=== PATIENT | male | born 1960 | race Caucasian/White ===

== ENCOUNTER → 2018-05-31 | Outpatient (REF) | payer BC ==
[~2018-05-31] MED LIST: ACET-654 PO; CHERSYP3 PO; CLAR500T3 PO; INDO50CA PO; LEVO500T PO
[2018-05-31 12:43] LABS: AMYLASE 33 U/L (25-115); LIPASE 100 U/L (73-393)
== END ==
LOC: M LAB REF 11:38
PROVIDERS: ATTEND Nurse Practitioner Adult Health
DX: R10.9 Unspecified abdominal pain (principal); R19.7 Diarrhea, unspecified

== ENCOUNTER → 2018-06-03 | Outpatient (CLI) | payer BC ==
--- NOTE | 2018-06-03 11:16 | REP ---
Chest two views HISTORY: Asbestos exposure Comparison: 05/22/2014 A calcified granuloma is present in the right lower lobe. Linear densities are present in the lower lobes consistent with scarring. The heart is normal in size. The pulmonary vasculature is normal in appearance. The bony structure is intact. IMPRESSION: No acute disease. Electronically Signed by Afshin Ferris MD 06/03/2018 11:09 A
== END ==
LOC: M WUC 10:41
PROVIDERS: ATTEND Nurse Practitioner Adult Health
DX: Z77.090 Contact with and (suspected) exposure to asbestos (principal)

== ENCOUNTER → 2018-10-30 | Outpatient (CLI) | payer BC ==
[~2018-10-30] MED LIST changes: +CLAR-1 PO; -CLAR500T3 PO; +ISOVUE-370 76% 100ML VIAL (Q9967) As Ordered ONE
--- NOTE | 2018-10-30 11:25 | REP ---
REASON FOR EXAM: COPD. COMPARISON: 04/02/2013. CONTRAST: 100 mL Isovue 370. There are multiple borderline mediastinal and right hilar lymph nodes. Some are partially calcified, essentially unchanged to slightly increased in size and degree of calcification when compared to the prior exam. There is no pleural or pericardial effusion. There is no significant change in the appearance of the imaged osseous structures or imaged upper abdomen. Evaluation of the lung marie show changes from COPD with parenchymal bullae and pleural blebs scattered bilaterally with biapical predominance essentially stable. Right basilar curvilinear densities are noted status quo consistent with chronic fibrotic changes. This is seen in conjunction with more mild scattered curvilinear densities also consistent with chronic change and stable. In the right upper lobe, there is a new irregular, somewhat spiculated 1.3 x 0.6 x 0.6 cm sized nodule. There are no additional new abnormal nodules, masses, or opacities. IMPRESSION: 1. New right lung nodule as described above. According to the revised Fleischner Society criteria, this represents a category 4A lesion for which 3-month followup CT scan is recommended with consideration made for PET/CT at this time. 2. Chronic lung field changes as described above. 3. Chronic mediastinal and hilar granulomatous changes. Electronically Signed by Davie Candelario DO 10/30/2018 12:47 P
== END ==
LOC: M RAD 09:06
PROVIDERS: ATTEND Internal Medicine Pulmonary Disease
DX: J44.9 Chronic obstructive pulmonary disease, unspecified (principal); R91.1 Solitary pulmonary nodule
CPT/HCPCS: 71260; Q9967

== ENCOUNTER → 2018-11-29 | Outpatient (CLI) | payer BC ==
[~2018-11-29] MED LIST changes: -ISOVUE-370 76% 100ML VIAL (Q9967) As Ordered ONE
--- NOTE | 2018-11-29 11:45 | REP ---
PET/CT: HISTORY: Diagnosing lung carcinoma. Solitary pulmonary nodule, 1.3 cm in diameter, right upper lobe. COMPARISONS: Chest CT exam from October 30, 2018. TECHNIQUE: 45 minutes following the intravenous injection of a 8.92 mCi dose of F-18 FDG, three-dimensional PET scintigraphy is acquired from the skull base to the proximal thighs. Triplanar noncontrast CT scanning is acquired through the same anatomic range for attenuation correction, and image registration with scan parameters optimized to minimize radiation exposure to the patient. PET scintigraphy and CT datasets were fused and displayed on a workstation with multiplanar and projection display capability. PET/CT FINDINGS: The recently identified right upper lobe nodule does not show visible PET activity. Maximum SUV is 0.72. There are subsegmental atelectatic changes in the dependent portion of the lower lobes bilaterally on today's CT study. No abnormal hypermetabolic suspicious focus is seen in the thorax. Head and neck soft tissues are unremarkable. In the abdomen and pelvis, there is no abnormal hypermetabolic uptake. IMPRESSION: Negative PET scintigraphy. This does not completely exclude malignancy in the right upper lobe pulmonary nodule. Followup is recommended. Electronically Signed by Dnaiel Aguirre MD 11/29/2018 03:24 P
== END ==
LOC: M PLARAD 07:29
PROVIDERS: ATTEND Internal Medicine Pulmonary Disease
DX: R91.1 Solitary pulmonary nodule (principal)
CPT/HCPCS: 78815; A9552

== ENCOUNTER → 2019-04-02 | Outpatient (CLI) | payer MEDICAID ==
--- NOTE | 2019-04-02 13:51 | REP ---
LEFT HAND SERIES: FOUR VIEWS. HISTORY: Left thumb pain. FINDINGS: Four views of the left hand demonstrate fragmented osteoarthritic spurring at the IP joint of the thumb. There are also mild to moderate osteoarthritic changes at the MCP joint and CORRECTION joint of the thumb and to a lesser extent, there is spurring at the DIP joints of all of the fingers. No erosive changes seen. IMPRESSION: Osteoarthritic changes, as noted above. No acute bony abnormality. Fragmented spurring is seen at the IP joint of the thumb. Electronically Signed by Daniel Aguirre MD 04/02/2019 02:51 P
== END ==
LOC: M RAD 12:00
PROVIDERS: ATTEND Physician Assistant Medical
DX: S63.602A Unspecified sprain of left thumb, initial encounter (principal); X58.XXXA Exposure to other specified factors, initial encounter; Y92.89 Other specified places as the place of occurrence of the external cause; M79.645 Pain in left finger(s)

== ENCOUNTER → 2019-05-15 | Outpatient (REF) | payer MEDICAID ==
[2019-05-15 13:54] LABS: INFLUENZA A AMPLIFICATION NEGATIVE (NEGATIVE); INFLUENZA B AMPLIFICATION NEGATIVE (NEGATIVE)
== END ==
LOC: M LAB REF 12:20
PROVIDERS: ATTEND Registered Nurse
DX: J06.9 Acute upper respiratory infection, unspecified (principal)

== ENCOUNTER → 2019-05-31 | Outpatient (CLI) | payer MEDICAID ==
[~2019-05-31] MED LIST changes: +ISOVUE-370 76% 100ML VIAL (Q9967) As Ordered ONE
--- NOTE | 2019-05-31 10:08 | REP ---
CT of the chest with IV contrast for follow up of lung nodules: Comparisons are 04/02/2013, and 10/30/2018. There is a new 6 mm nodule with spiculated margins in the left upper lobe on image 24, not present on the prior studies. Image 22, right upper lobe, 13 by 6 mm lung nodule, unchanged from 03/09/2019, not present on 04/02/2039. Image 35, left upper lobe, 5 mm nodule, unchanged from a 03/09/2019, not present on 04/02/2013. Image 40, left upper lobe, 4 mm nodule, unchanged from 10/30/2018, not present 04/02/2013. Image 46, right upper lobe posteriorly, calcified granuloma, unchanged from both prior studies. There are bulla throughout the lung marie bilaterally, most predominant in the upper lobes, unchanged from the prior studies. There is discoid atelectasis versus parenchymal scarring in the right middle lobe and in the lingula, unchanged from 10/30/2018 but not present on 04/02/2013. There is a parenchymal scar in the right lower lobe, unchanged from both prior studies. There are borderline enlarged hilar nodes measuring up to 7 mm on the right and 8 ml on the left. This is unchanged. There are borderline. There are borderline enlarged mediastinal nodes measuring up to 7 mm in the pretracheal area. This is unchanged. There are calcified granulomas in several paratracheal mediastinal nodes. This is unchanged. There are no acute infiltrates or pleural effusions. Upper abdomen: The visualized hepatic parenchyma is unremarkable except for a few tiny hypodensities, unchanged, likely cysts. The visualized areas of the gallbladder, pancreas and spleen are unremarkable. There is no adrenal mass. Impression: Multiple lung nodules as described. There is a new left upper lobe lung nodule. The other nodules are unchanged. Borderline hilar and mediastinal lymph node enlargement, not significantly changed. Bulla throughout the lung marie bilaterally, more predominant in the upper lobes, unchanged. Focal zones of parenchymal scarring. Stable low wall hypodensities in the liver, likely cysts. Electronically Signed by Judah Marie MD 05/31/2019 09:59 A
== END ==
LOC: M RAD 07:43
PROVIDERS: ATTEND Internal Medicine Pulmonary Disease
DX: J44.9 Chronic obstructive pulmonary disease, unspecified (principal); R91.8 Other nonspecific abnormal finding of lung field; K76.89 Other specified diseases of liver
CPT/HCPCS: 71260; Q9967

== ENCOUNTER → 2019-07-23 | Outpatient (CLI) | payer OTHER ==
[~2019-07-23] MED LIST changes: -ISOVUE-370 76% 100ML VIAL (Q9967) As Ordered ONE
[2019-07-23 15:16] LABS: HEMATOCRIT 43.6 % (42.0-52.0); HEMOGLOBIN 14.5 g/dl (13.5-17.5); MEAN CORPUSCULAR HEMOGLOBIN 29.7 pg (27.0-33.0); MEAN CORPUSCULAR HGB CONC 33.3 g/dl (32.0-36.5); MEAN CORPUSCULAR VOLUME 89.3 fl (80.0-96.0); PLATELET COUNT, AUTOMATED 338 10^3/uL (150-450); RED BLOOD COUNT 4.88 10^6/uL (4.30-6.10); WHITE BLOOD COUNT 8.8 10^3/uL (4.0-10.0)
[2019-07-23 15:36] LABS: ALBUMIN 3.7 GM/DL (3.2-5.2); ALT/SGPT 31 U/L (12-78); AMYLASE 38 U/L (25-115); BILIRUBIN,TOTAL 0.3 MG/DL (0.2-1.0); BLOOD UREA NITROGEN 17 MG/DL (7-18); CALCIUM LEVEL 8.6 MG/DL (8.8-10.2); CARBON DIOXIDE LEVEL 27 MEQ/L (21-32); CHLORIDE LEVEL 106 MEQ/L (98-107); CREATININE FOR GFR 1.14 MG/DL (0.70-1.30); GLOMERULAR FILTRATION RATE > 60.0 (>49); GLUCOSE, FASTING 137 MG/DL (70-100); LIPASE 100 U/L (73-393); POTASSIUM SERUM 4.1 MEQ/L (3.5-5.1); SODIUM LEVEL 141 MEQ/L (136-145); TOTAL PROTEIN 6.8 GM/DL (6.4-8.2)
== END ==
LOC: M LAB 14:24
PROVIDERS: ATTEND Physician Assistant Medical
DX: R10.10 Upper abdominal pain, unspecified (principal)

== ENCOUNTER → 2019-09-20 | Outpatient (CLI) | payer OTHER ==
[~2019-09-20] MED LIST changes: +BREO1INH3 IH; +FAMO20TA PO; +INCR1INH INH; +LISI20TA19 PO; +METF-838 PO; +METF10004; +PANT40TA3 PO; +PROAAER10 INH; +SUCR1SS
== END ==
LOC: M LABSMTC 13:10
PROVIDERS: ATTEND Anesthesiology
DX: Z03.818 Encounter for observation for suspected exposure to other biological agents ruled out (principal); Z11.59 Encounter for screening for other viral diseases
CPT/HCPCS: C9803; U0003

== ENCOUNTER 2019-09-23 23:26 | Emergency (ER) | payer OTHER ==
[~2019-09-23] VITALS: Ht 177.8 cm; Wt 80.9 kg
[~2019-09-23 23:26] MED LIST changes: -METF10004
[2019-09-24] MEDS ORDERED: METF10004 (00:06)
[2019-09-24] MEDS ORDERED: DICYCLOMINE INJ 20MG/2ML (J0500) IM ONE (00:45)
[2019-09-24] MEDS ORDERED: NS 1,000 ML IV ONE (00:45)
[2019-09-24] MEDS ORDERED: ONDANSETRON 4MG/2ML VIAL IV ONE (01:45)
[2019-09-24 02:20] VITALS: BP 112/70
== END 2019-09-24 02:21 | disposition home or self-care (01) ==
LOC: M ED 23:26
DX: R10.9 Unspecified abdominal pain (principal); I10 Essential (primary) hypertension; K21.9 Gastro-esophageal reflux disease without esophagitis; J44.9 Chronic obstructive pulmonary disease, unspecified; R73.03 Prediabetes; Z79.84 Long term (current) use of oral hypoglycemic drugs; Z79.899 Other long term (current) drug therapy
CPT/HCPCS: 96361; 96372; 96374; 99284; J0500; J2405

== ENCOUNTER 2019-09-24 11:05 | Day surgery (SDC) | payer OTHER ==
[~2019-09-24] VITALS: Ht 177.8 cm; Wt 80.3 kg
[~2019-09-24 11:05] MED LIST changes: -BREO1INH3 IH; +BREO1INH3 INH; -LISI20TA19 PO; +LISI20TA35 PO; +METF10004; +NS 1,000 ML IV ONE; +PANT40TA29 PO; -PANT40TA3 PO
[2019-09-24] MEDS ORDERED: fentaNYL 100 MCG/2 ML INJECTION (J3010) As Ordered ONE (13:10)
[2019-09-24] MEDS ORDERED: LIDOCAINE 2% 100MG/5ML SDV (FOR ANES.) As Ordered ONE (13:46)
[2019-09-24] MEDS ORDERED: propofoL 200 MG/20 ML VIAL As Ordered ONE (13:46)
--- NOTE | 2019-09-24 13:51 | ROOR ---
Patient Name: Isrrael Osullivan Procedure Date: 09/24/2019 1:06 PM Date of : 1960 Age: 59 Room: [facility] Gender: Male Note Status: Finalized Procedure: Upper GI endoscopy Indications: Epigastric abdominal pain, Suspected gastro-esophageal reflux disease Providers: Aiden Lux MD Referring MD: SONY GALINDO JR, MD Requesting Provider: Medicines: Monitored Anesthesia Care Complications: No immediate complications. Procedure: Pre-Anesthesia Assessment: - Prior to the procedure, a History and Physical was performed, and patient medications and allergies were reviewed. The patient is competent. The risks and benefits of the procedure and the sedation options and risks were discussed with the patient. All questions were answered and informed consent was obtained. Patient identification and proposed procedure were verified by the physician, the nurse and the anesthesiologist in the procedure room. Mental Status Examination: alert and oriented. Airway Examination: normal oropharyngeal airway and neck mobility. Respiratory Examination: clear to auscultation. CV Examination: normal. Prophylactic Antibiotics: The patient does not require prophylactic antibiotics. Prior Anticoagulants: The patient has taken no previous anticoagulant or antiplatelet agents. ASA Grade Assessment: II - A patient with mild systemic disease. After reviewing the risks and benefits, the patient was deemed in satisfactory condition to undergo the procedure. The anesthesia plan was to use monitored anesthesia care (MAC). Immediately prior to administration of medications, the patient was re-assessed for adequacy to receive sedatives. The heart rate, respiratory rate, oxygen saturations, blood pressure, adequacy of pulmonary ventilation, and response to care were monitored throughout the procedure. The physical status of the patient was re-assessed after the procedure. The Endoscope was introduced through the mouth, and advanced to the second part of duodenum. The upper GI endoscopy was accomplished without difficulty. The patient tolerated the procedure well. Findings: A large hiatal hernia was present. The Z-line was regular and was found 36 cm from the incisors. Diffuse moderate inflammation characterized by erythema and granularity was found in the gastric body and in the gastric antrum. Biopsies were taken with a cold forceps for Helicobacter pylori testing. Verification of patient identification for the specimen was done by the physician and nurse using the patient's name, date and medical record number. Estimated blood loss was minimal. The duodenal bulb and second portion of the duodenum were normal. Biopsies for histology were taken with a cold forceps for evaluation of celiac disease. Impression: - Large hiatal hernia. - Z-line regular, 36 cm from the incisors. - Gastritis. Biopsied. - Normal duodenal bulb and second portion of the duodenum. Biopsied. Recommendation: - Patient has a contact number available for emergencies. The signs and symptoms of potential delayed complications were discussed with the patient. Return to normal activities tomorrow. Written discharge instructions were provided to the patient. - Anti-acid reflux diet -- small meals, sit upright atleast 1 hour after meals, avoid fatty/ oily foods and avoid foods that cause reflux. - Continue present medications. - Follow an antireflux regimen. - Await pathology results. - Telephone GI clinic for pathology results in 2 weeks. - Return to primary care physician. Aiden Lux MD Aiden Lux MD 09/24/2019 1:50:47 PM Electronically signed by Aiden Lux MD Number of Addenda: 0 Note Initiated On: 09/24/2019 1:06 PM Estimated Blood Loss: Estimated blood loss was minimal.
--- NOTE | 2019-09-24 13:56 | ROOR ---
Patient Name: Isrrael Osullivan Procedure Date: 09/24/2019 1:07 PM Date of : 1960 Age: 59 Room: [facility] Gender: Male Note Status: Finalized Procedure: Colonoscopy Indications: Screening for colorectal malignant neoplasm Providers: Aiden Lux MD Referring MD: SONY GALINDO JR, MD Requesting Provider: Medicines: Monitored Anesthesia Care Complications: No immediate complications. Procedure: Pre-Anesthesia Assessment: - Prior to the procedure, a History and Physical was performed, and patient medications and allergies were reviewed. The patient is competent. The risks and benefits of the procedure and the sedation options and risks were discussed with the patient. All questions were answered and informed consent was obtained. Patient identification and proposed procedure were verified by the physician, the nurse and the anesthesiologist in the procedure room. Mental Status Examination: alert and oriented. Prophylactic Antibiotics: The patient does not require prophylactic antibiotics. Prior Anticoagulants: The patient has taken no previous anticoagulant or antiplatelet agents. ASA Grade Assessment: II - A patient with mild systemic disease. After reviewing the risks and benefits, the patient was deemed in satisfactory condition to undergo the procedure. The anesthesia plan was to use monitored anesthesia care (MAC). Immediately prior to administration of medications, the patient was re-assessed for adequacy to receive sedatives. The heart rate, respiratory rate, oxygen saturations, blood pressure, adequacy of pulmonary ventilation, and response to care were monitored throughout the procedure. The physical status of the patient was re-assessed after the procedure. The Colonoscope was introduced through the anus and advanced to the terminal ileum, with identification of the appendiceal orifice and IC valve. The colonoscopy was performed without difficulty. The patient tolerated the procedure well. The quality of the bowel preparation was good. The terminal ileum, ileocecal valve, appendiceal orifice, and rectum were photographed. Scope insertion time was 2 minutes. Scope withdrawal time was 10 minutes. The total duration of the procedure was 12 minutes. Findings: The perianal and digital rectal examinations were normal. Three sessile polyps were found in the descending colon and transverse colon. The polyps were 3 to 6 mm in size. These polyps were removed with a cold snare. Resection and retrieval were complete. Verification of patient identification for the specimen was done by the physician and nurse using the patient's name, date and medical record number. Estimated blood loss was minimal. Multiple small-mouthed diverticula were found from sigmoid to descending colon. There was no evidence of diverticular bleeding. Non-bleeding external and internal hemorrhoids were found during retroflexion. The hemorrhoids were medium-sized. Impression: - Three 3 to 6 mm polyps in the descending colon and in the transverse colon, removed with a cold snare. Resected and retrieved. - Moderate diverticulosis from sigmoid to descending colon. There was no evidence of diverticular bleeding. - Non-bleeding external and internal hemorrhoids. Recommendation: - Patient has a contact number available for emergencies. The signs and symptoms of potential delayed complications were discussed with the patient. Return to normal activities tomorrow. Written discharge instructions were provided to the patient. - High fiber diet. - Continue present medications. - Await pathology results. - Repeat colonoscopy in 3 - 5 years for surveillance of multiple polyps. - Telephone GI clinic for pathology results in 2 weeks. - Return to primary care physician. Aiden Lux MD Aiden Lux MD 09/24/2019 1:56:16 PM Electronically signed by Aiden Lux MD Number of Addenda: 0 Note Initiated On: 09/24/2019 1:07 PM Estimated Blood Loss: Estimated blood loss: none.
[2019-09-24 14:10] VITALS: BP 156/87
== END 2019-09-24 14:26 | disposition home or self-care (01) ==
LOC: M OPP 11:05
PROVIDERS: ATTEND Internal Medicine Gastroenterology
DX: Z12.11 Encounter for screening for malignant neoplasm of colon (principal); K57.30 Diverticulosis of large intestine without perforation or abscess without bleeding; K64.8 Other hemorrhoids; D12.3 Benign neoplasm of transverse colon; D12.4 Benign neoplasm of descending colon; J44.9 Chronic obstructive pulmonary disease, unspecified; R10.10 Upper abdominal pain, unspecified; K44.9 Diaphragmatic hernia without obstruction or gangrene; K31.89 Other diseases of stomach and duodenum; I10 Essential (primary) hypertension; E11.9 Type 2 diabetes mellitus without complications; Z79.84 Long term (current) use of oral hypoglycemic drugs; Z79.899 Other long term (current) drug therapy
CPT/HCPCS: 43239; 45385; 88305; J3010

== ENCOUNTER → 2019-11-28 | Outpatient (CLI) | payer OTHER ==
[~2019-11-28] MED LIST changes: +ACET-897 PO; +ALBU83IN INH; +FLUT1INH3 INH; +METF-877 PO; +MUCI600T31 PO; -NS 1,000 ML IV ONE; +PRED20TA PO; +SIMV20TA22 PO; +SUCR1SS PO
[2019-11-28 08:52] LABS: BLOOD UREA NITROGEN 15 MG/DL (7-18); GLOMERULAR FILTRATION RATE > 60.0 (>49)
== END ==
LOC: M LAB 07:55
PROVIDERS: ATTEND Internal Medicine Pulmonary Disease
DX: Z01.812 Encounter for preprocedural laboratory examination (principal)

== ENCOUNTER → 2019-12-03 | Outpatient (CLI) | payer OTHER ==
[~2019-12-03] MED LIST changes: +ISOVUE-370 76% 100ML VIAL As Ordered ONE
--- NOTE | 2019-12-20 14:06 | REP ---
CONTRAST-ENHANCED CHEST CT: CLINICAL: Follow up pulmonary nodule. TECHNIQUE: Axial contrast-enhanced images from the thoracic inlet to the upper abdomen with coronal and sagittal reformations using 75 cc Isovue 370 intravenous contrast material. COMPARISON: 05/31/19, 10/30/18. FINDINGS: Moderate to advanced COPD/emphysematous changes are again appreciated and relatively stable, including minimal scattered scarring. A calcified granuloma in the right lower lobe (image 52) remains unchanged. The somewhat spiculated noncalcified lesion in the right apex (image 25) remains stable through 10/30/18. However, there is a new 6 mm nodule in the periphery of the left upper lobe (image 27), which was not apparent on 2019 and appears slightly increased in size compared to 05/31/19. No further consolidation, suspicious nodule or mass lesion is appreciated. No effusion. No pneumothorax. The tracheobronchial tree is relatively patent. Further evaluation of the mediastinum demonstrates atherosclerotic changes to the thoracic aorta and coronary arteries without aortic aneurysm or cardiomegaly. No pericardial effusion. A moderate hiatal hernia at the gastroesophageal junction is again identified. Musculoskeletal structures are intact. The bilateral adrenal glands appear normal. IMPRESSION: 1. The somewhat spiculated noncalcified lesion in the right apex remains stable through 10/30/18. 2. A new 6 mm noncalcified nodule in the left upper lobe has increased since 05/31/19 and was not apparent on 10/30/18. Short term 3-6 month follow up may be warranted. 3. Stable chronic COPD/emphysematous changes and scattered scarring MTDD
== END ==
LOC: M RAD 08:32
PROVIDERS: ATTEND Internal Medicine Pulmonary Disease
DX: J44.9 Chronic obstructive pulmonary disease, unspecified (principal); R91.8 Other nonspecific abnormal finding of lung field
CPT/HCPCS: 71260; Q9967

== ENCOUNTER 2019-12-24 15:18 | Emergency (ER) | payer OTHER ==
[~2019-12-24] VITALS: Ht 177.8 cm; Wt 81.8 kg
[~2019-12-24 15:18] MED LIST changes: -ACET-897 PO; -ALBU83IN INH; -FLUT1INH3 INH; -ISOVUE-370 76% 100ML VIAL As Ordered ONE; -METF-877 PO; -MUCI600T31 PO; -PRED20TA PO; -SIMV20TA22 PO; -SUCR1SS PO
[2019-12-24] MEDS ORDERED: FLUT1INH3 INH (15:50)
[2019-12-24 16:08] LABS: BASO % 0.2 % (0.0-1.0); LYMPH # 0.8 10^3/uL (1.5-5.0); LYMPH % 6.1 % (24.0-44.0); MEAN CORPUSCULAR HEMOGLOBIN 29.9 pg (27.0-33.0); MEAN CORPUSCULAR HGB CONC 34.1 g/dl (32.0-36.5); MEAN CORPUSCULAR VOLUME 87.8 fl (80.0-96.0); MONO # 0.4 10^3/uL (0.0-0.8); MONO % 2.6 % (0.0-5.0); NEUTROPHILS # 12.1 10^3/uL (1.5-8.5); NEUTROPHILS % 90.4 % (36.0-66.0); PLATELET COUNT, AUTOMATED 372 10^3/uL (150-450); RED BLOOD COUNT 5.01 10^6/uL (4.30-6.10); WHITE BLOOD COUNT 13.4 10^3/uL (4.0-10.0)
[2019-12-24] MEDS ORDERED: methylPREDNISolone 125MG 2ML VIAL IV ONE (16:30)
[2019-12-24] MEDS ORDERED: IPRATROPIUM 0.5MG/ALBUTEROL 2.5MG INH SOL UD 3ML (DUONEB) NEB ONE (16:30)
[2019-12-24] MEDS ORDERED: ALBUTEROL SULFATE 2.5 MG/0.5 ML INH NEB SOLN INH ONE (16:30)
[2019-12-24 16:46] LABS: BLOOD UREA NITROGEN 25 MG/DL (7-18); CALCIUM LEVEL 9.1 MG/DL (8.8-10.2); CARBON DIOXIDE LEVEL 23 MEQ/L (21-32); CHLORIDE LEVEL 110 MEQ/L (98-107); CREATININE FOR GFR 1.33 MG/DL (0.70-1.30); FREE T4 1.27 NG/DL (0.76-1.46); GLOMERULAR FILTRATION RATE 58.2 (>49); GLUCOSE, FASTING 179 MG/DL (70-100); LIPASE 89 U/L (73-393); POTASSIUM SERUM 4.5 MEQ/L (3.5-5.1); SODIUM LEVEL 139 MEQ/L (136-145)
--- NOTE | 2019-12-24 16:49 | REPVR ---
PROCEDURE INFORMATION: Exam: XR Chest, 1 View Exam date and time: 12/24/2019 4:08 PM Age: 59 years old Clinical indication: Chest pain TECHNIQUE: Imaging protocol: XR of the chest Views: 1 view. COMPARISON: CT Chest with contrast 12/03/2019 9:07 AM FINDINGS: Lungs: There is interstitial density in stranding density in the lung bases consistent with scarring. Pleural space: There is no evidence of pneumothorax or pleural effusion. Heart/Mediastinum: The heart is normal in size. Bones/joints: Osteopenia is noted. IMPRESSION: Scarring in both lung bases. Electronically signed by: Conner Ramirez On 12/24/2019 16:49:07 PM
[2019-12-24 17:09] LABS: ALBUMIN 3.6 GM/DL (3.2-5.2); ALT/SGPT 37 U/L (12-78); BILIRUBIN,DIRECT < 0.1 MG/DL (0.0-0.2); BILIRUBIN,TOTAL 0.3 MG/DL (0.2-1.0); NT-PRO BNP 182 PG/ML (<125); THYROXINE (T4) 9.8 UG/DL (4.5-12.0); TOTAL PROTEIN 6.3 GM/DL (6.4-8.2)
[2019-12-24] MEDS ORDERED: ISOVUE-370 76% 100ML VIAL As Ordered ONE (18:43)
[2019-12-24] MEDS ORDERED: PRED20TA PO (18:53)
[2019-12-24] MEDS ORDERED: PROAAER10 INH (18:53)
--- NOTE | 2019-12-24 19:55 | ECGEPIP ---
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
--- NOTE | 2019-12-24 20:00 | ECGEPIP ---
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
--- NOTE | 2019-12-24 20:22 | REPVR ---
PROCEDURE INFORMATION: Exam: CT Angiography Chest With Contrast Exam date and time: 12/24/2019 7:24 PM Age: 59 years old Clinical indication: Shortness of breath; Additional info: isabel GONZALEZ TECHNIQUE: Imaging protocol: Computed tomographic angiography of the chest with intravenous contrast. 3D rendering (Not supervised by radiologist): MIP and/or 3D reconstructed images were created by the technologist. Radiation optimization: All CT scans at this facility use at least one of these dose optimization techniques: automated exposure control; mA and/or kV adjustment per patient size (includes targeted exams where dose is matched to clinical indication); or iterative reconstruction. Contrast material: ISOVUE 370; Contrast volume: 75 ml; Contrast route: INTRAVENOUS (IV); COMPARISON: 1. CT Chest with contrast 12/03/2019 9:07 AM (report not provided) 2. CT Chest with contrast 05/31/2019 8:12:18 AM FINDINGS: Pulmonary arteries: No pulmonary embolus is identified. Aorta: The thoracic aorta is nonaneurysmal. Atherosclerotic vascular calcifications are again present. Lungs: The lungs demonstrate similar moderate upper lobe predominant emphysematous disease. There are again areas of scarring bilaterally. Calcified granulomas are again present in the bilateral upper lobes. There is a stable 5 mm noncalcified nodule in the left upper lobe (image 401:49). Another stable nodule measuring 10 mm is present in the right upper lobe (image 401:46). No new nodule is identified. The lungs are otherwise clear. The central airways appear patent. Pleural space: Unremarkable. No pneumothorax. No pleural effusion. Heart: Coronary artery calcifications are again present. No significant pericardial effusion. Mediastinal space: A moderate hiatal hernia is again present. Lymph nodes: Unremarkable. No enlarged lymph nodes. Liver: The liver again contains several small cysts measuring up to 9 mm. Bones/joints: Degenerative changes again involve the spine and shoulders Soft tissues: Unremarkable. IMPRESSION: 1. No pulmonary embolus or other acute thoracic disease identified. 2. Emphysematous disease, similar to 05/31/19. 3. Stable pulmonary nodules measuring up to 10 mm. For patients at high risk (history of smoking or of other known risk factors), recommend CT Chest at 18-24 months from the initial exam. (Reference: Fred) 4. Similar moderate hiatal hernia. REFERENCES: Fred Holliday, et al. Guidelines for Management of Incidental Pulmonary Nodules Detected on CT Images: From the Fleischner Society 2017. Radiology. 2017;284(1):228-243. Electronically signed by: Adilson Goodwin On 12/24/2019 20:22:34 PM
[2019-12-24 23:20] VITALS: BP 130/80
[2019-12-25] MEDS ORDERED: ACET-897 PO (21:10)
[2019-12-25] MEDS ORDERED: METF-877 PO (21:10)
[2019-12-25] MEDS ORDERED: MUCI600T31 PO (21:10)
[2019-12-25] MEDS ORDERED: ALBU83IN INH (21:10)
[2019-12-25] MEDS ORDERED: PRED20TA PO (21:10)
[2019-12-25] MEDS ORDERED: SUCR1SS PO (21:10)
[2019-12-25] MEDS ORDERED: SIMV20TA22 PO (21:17)
== END 2019-12-24 23:21 | disposition home or self-care (01) ==
LOC: M ED 15:18
DX: J45.901 Unspecified asthma with (acute) exacerbation (principal); J06.9 Acute upper respiratory infection, unspecified; B34.8 Other viral infections of unspecified site; R91.8 Other nonspecific abnormal finding of lung field; K44.9 Diaphragmatic hernia without obstruction or gangrene; E11.9 Type 2 diabetes mellitus without complications; I10 Essential (primary) hypertension; Z87.891 Personal history of nicotine dependence; Z79.84 Long term (current) use of oral hypoglycemic drugs; Z79.899 Other long term (current) drug therapy
CPT/HCPCS: 71045; 71275; 80048; 80076; 83605; 83690; 83880; 84436; 84439; 84443; 85025; 87040; 87486; 87581; 87633; 87798; 93005; 93041; 94640; 94760; 96374; 99285; J2930; Q9967

== ENCOUNTER 2019-12-25 16:35 | Inpatient (IN) | payer OTHER ==
[~2019-12-25] VITALS: Ht 177.8 cm; Wt 78.0 kg
[~2019-12-25 16:35] MED LIST changes: +FLUT1INH3 INH; +PRED20TA PO
[2019-12-25] MEDS ORDERED: NS 2,450 ML in IV 1 EA IV ONE (17:00)
[2019-12-25 17:25] LABS: BASO % 0.1 % (0.0-1.0); HEMATOCRIT 43.9 % (42.0-52.0); HEMOGLOBIN 14.9 g/dl (13.5-17.5); LYMPH # 1.9 10^3/uL (1.5-5.0); LYMPH % 8.9 % (24.0-44.0); MEAN CORPUSCULAR HEMOGLOBIN 29.4 pg (27.0-33.0); MEAN CORPUSCULAR HGB CONC 33.9 g/dl (32.0-36.5); MEAN CORPUSCULAR VOLUME 86.8 fl (80.0-96.0); MONO # 1.5 10^3/uL (0.0-0.8); MONO % 6.9 % (0.0-5.0); NEUTROPHILS # 17.8 10^3/uL (1.5-8.5); NEUTROPHILS % 83.2 % (36.0-66.0); PLATELET COUNT, AUTOMATED 391 10^3/uL (150-450); RED BLOOD COUNT 5.06 10^6/uL (4.30-6.10); WHITE BLOOD COUNT 21.5 10^3/uL (4.0-10.0)
[2019-12-25 17:33] LABS: INR 0.96
[2019-12-25 17:34] LABS: PARTIAL THROMBOPLASTIN TIME 24.3 SECONDS (24.2-38.5)
[2019-12-25 17:38] LABS: ABG BASE EXCESS -1.7 (-2.0-2.0); ABG PARTIAL PRESSURE CO2 23.2 mmHg (35.0-45.0); ABG PARTIAL PRESSURE O2 63.8 mmHg (75.0-100.0); ABG TOTAL CO2 19.7 MEQ/L (23.0-31.0)
--- NOTE | 2019-12-25 17:41 | REPVR ---
PROCEDURE INFORMATION: Exam: XR Chest, 1 View Exam date and time: 12/25/2019 5:17 PM Age: 59 years old Clinical indication: Shortness of breath; Chest pain; Additional info: Sepsis/shock TECHNIQUE: Imaging protocol: XR of the chest Views: 1 view. COMPARISON: 1. CR PORTABLE CHEST X-RAY 12/24/2019 3:[address] ANGIO CHEST 12/24/2019 7:20:10 PM FINDINGS: Lungs: Bibasilar atelectatic changes again visualized. Increased interstitial markings are again seen within both lower lung zones. Within the right midlung zone, there is an 8-9 mm nodule/granuloma. A small granuloma is seen at the left lung base. Additional noncalcified nodules were better visualized on recent CTA imaging of the chest. Prominence of the pulmonary vascular markings. Pleural space: No pleural effusion. No pneumothorax. Heart/Mediastinum: There is abnormal retrocardiac opacity, consistent with the hiatal hernia visualized on recent CT imaging. Bones/joints: Hypertrophic degenerative changes are noted involving the spine. IMPRESSION: 1. Bibasilar atelectatic changes again visualized. Increased interstitial markings are again seen within both lower lung zones. 2. Within the right midlung zone, there is an 8-9 mm nodule/granuloma. A small granuloma is seen at the left lung base. Additional noncalcified nodules were better visualized on recent CTA imaging of the chest. Follow-up using Fleischner recommendations. 3. Hiatal hernia. 4. Prominence of the pulmonary vascular markings. Electronically signed by: Jamar Beltran On 12/25/2019 17:40:58 PM
[2019-12-25 17:56] LABS: ALBUMIN 3.6 GM/DL (3.2-5.2); ALT/SGPT 36 U/L (12-78); AMYLASE 31 U/L (25-115); BILIRUBIN,DIRECT < 0.1 MG/DL (0.0-0.2); BILIRUBIN,TOTAL 0.3 MG/DL (0.2-1.0); BLOOD UREA NITROGEN 25 MG/DL (7-18); CALCIUM LEVEL 9.5 MG/DL (8.8-10.2); CARBON DIOXIDE LEVEL 21 MEQ/L (21-32); CHLORIDE LEVEL 108 MEQ/L (98-107); CK-MB VALUE MASS 1.5 NG/ML (<3.6); CPK CREATINE PHOSPHOKINASE 67 U/L (39-308); GLOMERULAR FILTRATION RATE > 60.0 (>49); GLUCOSE, FASTING 117 MG/DL (70-100); MB/CK RELATIVE INDEX 2.24 (< OR =4); POTASSIUM SERUM 4.1 MEQ/L (3.5-5.1); SODIUM LEVEL 138 MEQ/L (136-145); TOTAL PROTEIN 6.6 GM/DL (6.4-8.2); TROPONIN I < 0.02 NG/ML (< 0.10)
[2019-12-25 18:57] LABS: APPEARANCE, URINE CLEAR (CLEAR); BACTERIA, URINE AUTO NEGATIVE (NEGATIVE); BILIRUBIN, URINE AUTO NEGATIVE (NEGATIVE); BLOOD, URINE BLOOD 1+ (NEGATIVE); COLOR, URINE YELLOW (YELLOW); GLUCOSE, URINE (UA) AUTO NEGATIVE (NEGATIVE); KETONE, URINE AUTO NEGATIVE (NEGATIVE); LEUKOCYTE ESTERASE, URINE AUTO NEGATIVE (NEGATIVE); MUCUS, URINE SMALL (NEGATIVE); NITRITE, URINE AUTO NEGATIVE (NEGATIVE); PROTEIN, URINE AUTO NEGATIVE (NEGATIVE); RBC, URINE AUTO 4 /HPF (0-3); SQUAMOUS EPITHELIAL CELL UR AU 0 /HPF (0-6); UROBILINOGEN, URINE AUTO 0.2 mg/dL (0.0-2.0); WBC, URINE AUTO 0 /HPF (0-3)
[2019-12-25] MEDS: SYMBICORT 80/4.5MCG INHALER 6GM INH SCH (20:00)
[2019-12-25] MEDS ORDERED: LevoFLOXacin IV 750 MG in IV 1 EA IV ONE (20:00)
[2019-12-25] MEDS ORDERED: ISOVUE-370 76% 100ML VIAL As Ordered ONE (20:56)
[2019-12-25] MEDS ORDERED: METF-877 PO (21:10)
[2019-12-25] MEDS ORDERED: PRED20TA PO (21:10)
[2019-12-25] MEDS ORDERED: ACET-897 PO (21:10)
[2019-12-25] MEDS ORDERED: ALBU83IN INH (21:10)
[2019-12-25] MEDS ORDERED: SUCR1SS PO (21:10)
[2019-12-25] MEDS ORDERED: MUCI600T31 PO (21:10)
[2019-12-25] MEDS ORDERED: SIMV20TA22 PO (21:17)
--- NOTE | 2019-12-25 22:00 | REPVR ---
PROCEDURE INFORMATION: Exam: CT Angiography Chest With Contrast Exam date and time: 12/25/2019 9:08 PM Age: 59 years old Clinical indication: Chest pain; Additional info: Req TECHNIQUE: Imaging protocol: Computed tomographic angiography of the chest with intravenous contrast. 3D rendering (Not supervised by radiologist): MIP and/or 3D reconstructed images were created by the technologist. Radiation optimization: All CT scans at this facility use at least one of these dose optimization techniques: automated exposure control; mA and/or kV adjustment per patient size (includes targeted exams where dose is matched to clinical indication); or iterative reconstruction. Contrast material: ISOVUE 370; Contrast volume: 75 ml; Contrast route: INTRAVENOUS (IV); COMPARISON: CT ANGIO CHEST 12/24/2019 7:20 PM FINDINGS: Pulmonary arteries: The main pulmonary trunk, right/left main pulmonary arteries, and the proximal lobar branches demonstrate no definite intraluminal filling defect to suggest pulmonary embolism. Aorta: Artifact limits evaluation of the ascending aorta. No aneurysm or dissection of the remaining thoracic aorta. Great vessels off aortic arch: Soft plaque or chronic mural thrombus is again identified involving the proximal left subclavian artery with mild stenosis. Lungs: Biapical parenchymal scarring. Small biapical bullae. Within the right upper lobe of the lung on series 402, image 20, there is a 1.0 cm nodule which is stable compared to the prior study. Within the left upper lobe on series 401, image 73, there is a 4 mm nodule. Also within the left upper lobe on image 44, a 4 mm nodule is visualized. There is no significant progression of these nodules compared to the prior study. A calcified granuloma is seen within the right upper lobe on series 401, image 79 measuring 8 mm. A subcentimeter calcified granuloma is also noted within the lingula. Bibasilar consolidations are identified, with a band of consolidation within the right middle lobe. These findings are suggestive of atelectatic change or pneumonia. There is slight progression of the consolidations with the posterior left lung base and within the right middle lobe. Additional atelectasis is noted within the left upper lobe. Pleural space: No pneumothorax. No pleural effusion. Heart: Fluid is seen in the superior pericardial recess. Minimal pericardial effusion. The heart is stable in size. Mediastinal space: Moderate sized hiatal hernia. Lymph nodes: Calcified mediastinal and right hilar lymph nodes are identified, suggestive of granulomatous disease. Liver: Several small hypodense hepatic lesions are identified, which are subcentimeter in size and therefore too small to characterize further. Similar findings were identified within the visualized portion of the liver on the prior study, although the liver was incompletely imaged on the previous CT. Kidneys and ureters: Nonspecific perinephric stranding bilaterally. Hypodense left renal cysts are identified. This is mildly complex at the mid to lower pole of the left kidney measuring 2.4 cm in diameter and mildly increased in density. This extends out of the field of view of this study. Bones/joints: Hypertrophic degenerative changes are noted involving the spine. Soft tissues: Unremarkable. IMPRESSION: 1. No acute pulmonary embolism. 2. Bibasilar consolidations are identified, with a band of consolidation within the right middle lobe. These findings are suggestive of atelectatic change or pneumonia. There is slight progression of the consolidations with the posterior left lung base and within the right middle lobe. Clinical correlation and follow-up chest CT recommended. 3. Within the right upper lobe of the lung, there is a 1.0 cm nodule which is stable compared to the prior study. A few additional small nodules are identified. There is no significant progression of these nodules compared to the prior study. Continued follow all-up using Fleischner recommendations recommended. 4. A few calcified granulomas are again visualized within the lungs. 5. Additional atelectasis is noted within the left upper lobe. 6. Moderate sized hiatal hernia. 7. Calcified mediastinal and right hilar lymph nodes are identified, suggestive of granulomatous disease. 8. Minimal pericardial effusion. 9. Left renal cyst. This is mildly complex at the mid to lower pole of the left kidney measuring 2.4 cm in diameter. This extends out of the field of view of this study. Follow-up ultrasonography recommended. 10. Several small hypodense hepatic lesions are again identified. 11. Additional findings described above. Electronically signed by: Jamar Beltran On 12/25/2019 22:00:29 PM
[2019-12-26] VITALS (7 sets, daily range): BP systolic 124–189; BP diastolic 71–112
[2019-12-26] MEDS ORDERED: ALBUTEROL 90 MCG/ACT 8GM HFA INHALER INH PRN (00:30)
[2019-12-26] MEDS ORDERED: VANCOMYCIN HCL 1,230 MG in IV FLUID PLACE HOLDER 1 EA IV SCH (00:30)
[2019-12-26] MEDS ORDERED: IPRATROPIUM 0.5MG/ALBUTEROL 2.5MG INH SOL UD 3ML (DUONEB) INH PRN (00:30)
[2019-12-26] MEDS ORDERED: MOM 30ML SUSPENSION UDC PO PRN (00:30)
[2019-12-26] MEDS ORDERED: ACETAMINOPHEN 500 MG TAB PO PRN (00:30)
[2019-12-26] MEDS ORDERED: NS 1,000 ML IV SCH (00:30)
[2019-12-26] MEDS ORDERED: ACETAMINOPHEN TAB 650MG DOSE (2X325MG) PO PRN (00:30)
[2019-12-26] MEDS ORDERED: VANCOMYCIN HCL 1,000 MG, VIAL MATE ADAPTER 1 EACH in D5W 250 ML IV ONE (00:45)
--- NOTE | 2019-12-26 00:48 | HPEPDOC ---
[facility] Medical History & Physical Date of Admission Dec 26, 2019 Date of Service: Dec 26, 2019 History and Physical CHIEF COMPLAINT: Shortness of breath HISTORY OF PRESENT ILLNESS: 59-year-old male with past medical history of COPD, HTN, HLD, presents to the emergency department for shortness of breath. Patient was here yesterday and was sent home for COPD exacerbation and was given a five- day course of prednisone. 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 Here patient endorses some chills but no fever and the cough with clear sputum. Patient endorses some wheezing and dyspnea on exertion when he walks about 15 steps at home. Patient's respiratory viral panel had tested positive for rhinovirus on December 23. PAST MEDICAL HISTORY: COPD, HTN, HLD SOCIAL HISTORY: Patient is a smoker patient denies drinking alcohol or using illicit drugs FAMILY HISTORY: Noncontributory ALLERGIES: Please see below. REVIEW OF SYSTEMS: Constitutional: No sweating or weight loss. some chills Eyes: No eye pain or acute blurred vision HENT: No complaints of headache or sore throat Cadiovascular: No Chest pain or palpitations Pulm: Per HPI Gastrointestinal: No N/V, no abdominal pain. Genitourinary: No dysuria or hematuria Musculoskeletal: No back pain or joint pain Skin: No rash or jaundice Neurological: Generalized weakness. HOME MEDICATIONS: Please see below. PHYSICAL EXAMINATION: Constitutional: Awake and alert, in mild apparent distress ENT: Sclera are clear. Mucosa is moist. Respiratory: Lungs mildly wheezing throughout both lung marie but is not appear to be in distress. No use of accessory muscles. Cardiovascular: RRR S1 and S2 are normal, no murmur Gastrointestinal: Abdomen is soft, non distended, non tender, BS present. Musculoskeletal: No edema Neurologic: No focal neurological deficit. Mental Status: A&O x3, normal affect Skin: Warm, dry LABORATORY DATA: See below. MICROBIOLOGY: Please see below. ASSESSMENT/PLAN 59-year-old male with past medical history of COPD, HTN, HLD, presents to the emergency department for shortness of breath. Found to have underlying PNA and acute on chronic COPD exacerbation. # Community acquired PNA - Seen on chest CT - Trend lactate. initially 2.5. IVFs. - WBC 21.5 afebrile - Broad spectrum with Vanc & zosyn - Scheduled and PRN Duonebs - BCs, UCx pending f/u - Urine strep Ag and Legionella - Sputum culture - respiratory viral panel ordered from 12/23 positive for rhinovirus # Acute on chronic COPD exacerbation - CXR review. - Scheduled and PRN Duonebs - Albuterol inhaler - Symbicort - Prednisone 40mg for 5 days. Day #1 - Follows up with pulm OP # Sepsis: 2/2 PNA. IVFs. IV ABx vanc & zosyn. Lactate bundle. Initial lactate 2.5 # Pulmonary nodule: Seen on CT. follows up in clinic with pulmonology. Can consult pulm in the AM is desired by morning team. # HTN: resume home lisinopril & HCTZ. monitor and titrate. # HLD: statin # DVT proph: lovenox Vital Signs Vital Signs Date Time Temp Pulse Resp B/P (MAP) Pulse Ox O2 Delivery O2 Flow Rate FiO2 12/25/19 22:02 61 18 94 Room Air 12/25/19 22:00 158/88 (111) 12/25/19 18:30 96.7 Laboratory Data Labs 24H Laboratory Tests 2 12/25/19 17:07: Immature Granulocyte % (Auto) 0.9, Neutrophils (%) (Auto) 83.2H, Lymphocytes (%) (Auto) 8.9L, Monocytes (%) (Auto) 6.9H, Eosinophils (%) (Auto) 0.0, Basophils (%) (Auto) 0.1, Neutrophils # (Auto) 17.8H, Lymphocytes # (Auto) 1.9, Monocytes # (Auto) 1.5H, Eosinophils # (Auto) 0.0, Basophils # (Auto) 0.0, Nucleated Red Blood Cells % (auto) 0.0, Prothrombin Time 13.0, Prothromb Time International Ratio 0.96, Activated Partial Thromboplast Time 24.3L, Anion Gap 9, Glomerular Filtration Rate > 60.0, Lactic Acid Level 2.5*H, Calcium Level 9.5, Total Bilirubin 0.3, Direct Bilirubin < 0.1, Aspartate Amino Transf (AST/SGOT) 9, Alanine Aminotransferase (ALT/SGPT) 36, Alkaline Phosphatase 104, Total Creatine Kinase 67, Creatine Kinase MB 1.5, Creatine Kinase MB Relative Index 2.24, Troponin I < 0.02, C-Reactive Protein, Quantitative 0.30, Total Protein 6.6, Albumin 3.6, Albumin/Globulin Ratio 1.2, Amylase Level 31 12/25/19 17:18: Blood Gas Bicarbonate Standard 23.0, Arterial Blood pH 7.530H, Arterial Blood Partial Pressure CO2 23.2L, Arterial Blood Partial Pressure O2 63.8L, Arterial Blood Total CO2 19.7L, Arterial Blood HCO3 19.0L, Arterial Blood Base Excess - 1.7, Arterial Blood Oxygen Saturation 94.0L 12/25/19 18:37: Urine Color YELLOW, Urine Appearance CLEAR, Urine pH 5.0, Urine Specific [place] 1.010, Urine Protein NEGATIVE, Urine Glucose (Auto)(UA) NEGATIVE, Urine Ketones (Auto) NEGATIVE, Urine Blood 1+H, Urine Nitrite NEGATIVE, Urine Bilirubin NEGATIVE, Urine Urobilinogen 0.2, Urine Leukocyte Esterase (Auto) NEGATIVE, Urine WBC (Auto) 0, Urine RBC (Auto) 4H, Urine Hyaline Casts (Auto) 0, Urine Bacteria (Auto) NEGATIVE, Urine Squamous Epithelial Cells 0, Urine Mucus (Auto) SMALL, Urine Sperm (Auto) CBC/BMP Laboratory Tests 12/25/19 17:07 Microbiology Microbiology 12/25/19 Urine Culture, Received Pending Home Medications Scheduled Fluticasone/Vilanterol (Breo Ellipta 200-25 Mcg INH) 1 Each Blst.w.dev, 1 PUFF INH DAILY Lisinopril/Hydrochlorothiazide (Lisinopril-Hctz 20-12.5 mg Tab) 1 Each Tablet, 1 TAB PO DAILY Metformin HCl (Metformin HCl) 1,000 Mg Tablet, 1,000 MG PO DAILY HAD CONTRAST DYE ON 12/24/19, DID NOT TAKE MORNING DOSE ON 12/25/19 Pantoprazole Sodium (Pantoprazole Sodium) 40 Mg Tablet.dr, 40 MG PO DAILY Prednisone (Prednisone) 20 Mg Tablet, 40 MG PO DAILY STARTED ON 12/24/19 Simvastatin (Simvastatin) 20 Mg Tablet, 20 MG PO QHS Sucralfate (Carafate) 1 Gm/10 Ml Oral.susp, 10 ML PO BID LUNCH AND BEDTIME Umeclidinium [place] (Incruse Ellipta) 62.5 Mcg Blst.w.dev, 1 PUFF INH DAILY Scheduled PRN Acetaminophen (Tylenol Extra Strength) 500 Mg Tablet, 1,000 MG PO Q6H PRN for PAIN Albuterol Sulf (Albuterol Sulfate) 2.5 Mg/3 Ml Vial.neb, 2.5 MG INH Q6H PRN for SHORTNESS OF BREATH Albuterol Sulfate (Proair Hfa) 8.5 Gm Hfa.aer.ad, 2 PUFF INH Q4H PRN for SHORTNESS OF BREATH Guaifenesin (Mucinex) 600 Mg Tab.er.12h, 600 MG PO BID PRN for CONGESTION Allergies Coded Allergies: No Known Allergies (Unverified , 09/17/19) A-FIB/CHADSVASC A-FIB History Current/History of A-Fib/PAF?: No GET MASON MD Dec 26, 2019 00:30
[2019-12-26] MEDS ORDERED: DEXTROSE 50% 50 ML SYRINGE IV PRN (01:00)
[2019-12-26] MEDS ORDERED: GLUCOSE 4GM CHEW TABLET PO PRN (01:00)
[2019-12-26] MEDS ORDERED: GLUCAGON INJ 1MG VIAL SC PRN (01:00)
[2019-12-26] MEDS: HumaLOG INSULIN (NovoLOG) PER UNIT SC SCH ×5 (01:20→21:00)
[2019-12-26] MEDS: PIPERACILLIN/TAZOBACTAM SOD 4.5 GM in D5W MINI-BAG PLUS 100 ML IV SCH ×2 (02:58→09:02)
[2019-12-26] MEDS: VANCOMYCIN HCL 1,000 MG, VIAL MATE ADAPTER 1 EACH in D5W 250 ML IV SCH ×2 (05:14→11:31)
[2019-12-26] MEDS: SIMVASTATIN 20 MG TAB PO SCH ×2 (05:14→21:49)
[2019-12-26 06:12] LABS: ALBUMIN 3.2 GM/DL (3.2-5.2); ALT/SGPT 34 U/L (12-78); BILIRUBIN,TOTAL 0.6 MG/DL (0.2-1.0); BLOOD UREA NITROGEN 20 MG/DL (7-18); CALCIUM LEVEL 8.5 MG/DL (8.8-10.2); CARBON DIOXIDE LEVEL 22 MEQ/L (21-32); CHLORIDE LEVEL 112 MEQ/L (98-107); CREATININE FOR GFR 1.21 MG/DL (0.70-1.30); GLOMERULAR FILTRATION RATE > 60.0 (>49); GLUCOSE, FASTING 81 MG/DL (70-100); SODIUM LEVEL 141 MEQ/L (136-145); TOTAL PROTEIN 5.7 GM/DL (6.4-8.2)
--- NOTE | 2019-12-26 06:19 | IPNPDOC ---
Subjective Date Seen The patient was seen on 12/26/19. Subjective Chief Complaint/HPI Notified by nurse that patient is complaining of chest pain radiating to back, 3/10 pain. He states it's not a pressure pain but a dull pain. STAT ekg ordered and troponin ordered. 1x dose 2mg morphine given for pain control. Am physician/morning team- please follow up on this. EKG was read by me and attending physician (Dr. Guy)- No ST changes, some artifacts from patient moving. Assessment /Plan Plan/VTE VTE Prophylaxis Ordered?: Yes VS, I&O, 24H, Fishbone Vital Signs/I&O Vital Signs Date Time Temp Pulse Resp B/P (MAP) Pulse Ox O2 Delivery O2 Flow Rate FiO2 12/26/19 05:10 97.1 72 19 158/112 (127) 97 Room Air I&O- Last 24 Hours up to 6 AM 12/26/19 05:59 Intake Total 4210 ml Output Total 575 ml Balance 3635 ml Laboratory Data 24H LABS Laboratory Tests 2 12/25/19 17:07: Immature Granulocyte % (Auto) 0.9, Neutrophils (%) (Auto) 83.2H, Lymphocytes (%) (Auto) 8.9L, Monocytes (%) (Auto) 6.9H, Eosinophils (%) (Auto) 0.0, Basophils (%) (Auto) 0.1, Neutrophils # (Auto) 17.8H, Lymphocytes # (Auto) 1.9, Monocytes # (Auto) 1.5H, Eosinophils # (Auto) 0.0, Basophils # (Auto) 0.0, Nucleated Red Blood Cells % (auto) 0.0, Prothrombin Time 13.0, Prothromb Time International Ratio 0.96, Activated Partial Thromboplast Time 24.3L, Anion Gap 9, Glomerular Filtration Rate > 60.0, Lactic Acid Level 2.5*H, Calcium Level 9.5, Total Bilirubin 0.3, Direct Bilirubin < 0.1, Aspartate Amino Transf (AST/SGOT) 9, Alanine Aminotransferase (ALT/SGPT) 36, Alkaline Phosphatase 104, Total Creatine Kinase 67, Creatine Kinase MB 1.5, Creatine Kinase MB Relative Index 2.24, Troponin I < 0.02, C-Reactive Protein, Quantitative 0.30, Total Protein 6.6, Albumin 3.6, Albumin/Globulin Ratio 1.2, Amylase Level 31 12/25/19 17:18: Blood Gas Bicarbonate Standard 23.0, Arterial Blood pH 7.530H, Arterial Blood Partial Pressure CO2 23.2L, Arterial Blood Partial Pressure O2 63.8L, Arterial Blood Total CO2 19.7L, Arterial Blood HCO3 19.0L, Arterial Blood Base Excess - 1.7, Arterial Blood Oxygen Saturation 94.0L 12/25/19 18:37: Urine Color YELLOW, Urine Appearance CLEAR, Urine pH 5.0, Urine Specific [place] 1.010, Urine Protein NEGATIVE, Urine Glucose (Auto)(UA) NEGATIVE, Urine Ketones (Auto) NEGATIVE, Urine Blood 1+H, Urine Nitrite NEGATIVE, Urine Bilirubin NEGATIVE, Urine Urobilinogen 0.2, Urine Leukocyte Esterase (Auto) NEGATIVE, Urine WBC (Auto) 0, Urine RBC (Auto) 4H, Urine Hyaline Casts (Auto) 0, Urine Bacteria (Auto) NEGATIVE, Urine Squamous Epithelial Cells 0, Urine Mucus (Auto) SMALL, Urine Sperm (Auto) 12/26/19 01:19: Bedside Glucose (Misc Panel) 103 12/26/19 01:38: Lactic Acid Level 0.9 12/26/19 05:08: Lactic Acid Level 1.4, Anion Gap 7L, Glomerular Filtration Rate > 60.0, Calcium Level 8.5L, Total Bilirubin 0.6#, Aspartate Amino Transf (AST/SGOT) 14, Alanine Aminotransferase (ALT/SGPT) 34, Alkaline Phosphatase 77, Total Protein 5.7L, Albumin 3.2, Albumin/Globulin Ratio 1.3 CBC/BMP Laboratory Tests 12/25/19 17:07 12/26/19 05:08 Microbiology Microbiology 12/26/19 Blood Culture, Received Pending 12/26/19 Blood Culture, Received Pending 12/25/19 Urine Culture, Received Pending GME ATTESTATION GME ATTESTATION My faculty preceptor for this patient encounter was physically present during the encounter and was fully available. All aspects of the patient interview, examination, medical decision making process, and medical care plan development were reviewed and approved by the faculty preceptor. The faculty preceptor is aware and concurs with the plan as stated in the body of this note and will attest to such by his/her cosignature. Leonidas Comer DO Dec 26, 2019 06:19
[2019-12-26] MEDS ORDERED: MORPHINE 2 MG/ML 1ML VIAL (J2270) IV ONE (06:30)
[2019-12-26 07:00] LABS: TROPONIN I < 0.02 NG/ML (< 0.10)
[2019-12-26] MEDS: SYMBICORT 80/4.5MCG INHALER 6GM INH SCH ×2 (07:20→19:32)
[2019-12-26] MEDS: IPRATROPIUM 0.5MG/ALBUTEROL 2.5MG INH SOL UD 3ML (DUONEB) INH SCH ×5 (07:20→23:21)
--- NOTE | 2019-12-26 08:32 | ECGEPIP ---
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
[2019-12-26 08:43] LABS: HEMATOCRIT 39.6 % (42.0-52.0); HEMOGLOBIN 13.1 g/dl (13.5-17.5); MEAN CORPUSCULAR HEMOGLOBIN 29.6 pg (27.0-33.0); MEAN CORPUSCULAR HGB CONC 33.1 g/dl (32.0-36.5); MEAN CORPUSCULAR VOLUME 89.4 fl (80.0-96.0); PLATELET COUNT, AUTOMATED 329 10^3/uL (150-450); RED BLOOD COUNT 4.43 10^6/uL (4.30-6.10); WHITE BLOOD COUNT 12.6 10^3/uL (4.0-10.0)
[2019-12-26] MEDS: lisinopriL 20 MG TAB PO SCH (09:00)
[2019-12-26] MEDS: PANTOPRAZOLE 40MG TAB (PROTONIX) PO SCH (09:00)
[2019-12-26] MEDS ORDERED: predniSONE 20 MG TAB PO SCH (09:00)
[2019-12-26] MEDS: hydroCHLOROthiazide 12.5 MG CAPSULE PO SCH (09:01)
[2019-12-26] MEDS: ENOXAPARIN 40MG/0.4ML SYRINGE (J1650 PER 10MG) SC SCH (09:01)
[2019-12-26 10:30] LABS: INFLUENZA A AMPLIFICATION NEGATIVE (NEGATIVE); INFLUENZA B AMPLIFICATION NEGATIVE (NEGATIVE)
[2019-12-26] MEDS: ACETAMINOPHEN TAB 650MG DOSE (2X325MG) PO SCH ×4 (10:45→21:48)
[2019-12-26] MEDS ORDERED: SLF 3 ML SYR IV PRN (11:00)
--- NOTE | 2019-12-26 13:31 | IPNPDOC ---
Date Seen The patient was seen on 12/26/19. Progress Note SUBJECTIVE: The patient complains this morning of continued substernal chest pain, pleuritic in nature without radiation to the back, neck or down the arm. Multiple troponins negative. Appearing more like pleurisy versus costochondritis. WBC improved to 12.6, 94% on room air. Cultures currently pending, patient unable to produce sputum sample at this time. He currently denies nausea, vomiting, chills, fevers, abdominal pain, increased shortness of breath. OBJECTIVE PHYSICAL EXAMINATION: VS: See below Constitutional: Awake and alert, no acute distress ENT: Sclera are clear. Mucosa is moist. Respiratory: Lungs mildly wheezing throughout both lung marie. Rhonchi or rales. No use of accessory muscles. Cardiovascular: RRR S1 and S2 are normal, no murmur Gastrointestinal: Abdomen is soft, non distended, non tender, BS present. Musculoskeletal: No edema Neurologic: No focal neurological deficit. Mental Status: A&O x3, normal affect Skin: Warm, dry LABORATORY DATA: See below. MICROBIOLOGY: Please see below. ASSESSMENT: 59-year-old male with past medical history of COPD, HTN, HLD, presents to the emergency department for shortness of breath admitted for PNA and acute on chronic COPD exacerbation. PLAN: # Community acquired PNA, sepsis . Recent rhinovirus + - WBC improved to 12.6, LA wnl this AM. - F/u BCx, Urine strep Ag and Legionella, sputum culture if able to be given - D/c vanco, zosyn. Start on ceftriaxone, doxy BID - Nebulizer PRN, ATC # Acute on chronic COPD exacerbation - Improved slightly today - C/w ATC, PRN nebulizer, prednisone, symbicort #Chest pain likely 2/2 to pleurisy vs. costochondritis -Started on ATC tylenol, increased prednisone, pain control -Tx PNA above -Not cardiac cause # Pulmonary nodules -Following with Dr. Ramirez as o/p -Last visit 2 weeks ago. #Hepatic nodules -Seen on prior imaging -AST/ALT wnl -F/u with PCP # HTN -C/w home medications # HLD -C/w statin # DVT px -Lovenox DISPOSITION: Admitted under inpatient status. Plan is discharge home when medically improved. VS, I&O, 24H, Fishbone Vital Signs/I&O Vital Signs Date Time Temp Pulse Resp B/P (MAP) Pulse Ox O2 Delivery O2 Flow Rate FiO2 12/26/19 12:46 146/74 (98) 12/26/19 12:30 97.6 76 18 92 Room Air I&O- Last 24 Hours up to 6 AM 12/26/19 06:00 Intake Total 4210 ml Output Total 575 ml Balance 3635 ml Laboratory Data 24H LABS Laboratory Tests 2 12/25/19 17:07: Immature Granulocyte % (Auto) 0.9, Neutrophils (%) (Auto) 83.2H, Lymphocytes (%) (Auto) 8.9L, Monocytes (%) (Auto) 6.9H, Eosinophils (%) (Auto) 0.0, Basophils (%) (Auto) 0.1, Neutrophils # (Auto) 17.8H, Lymphocytes # (Auto) 1.9, Monocytes # (Auto) 1.5H, Eosinophils # (Auto) 0.0, Basophils # (Auto) 0.0, Nucleated Red Blood Cells % (auto) 0.0, Prothrombin Time 13.0, Prothromb Time International Ratio 0.96, Activated Partial Thromboplast Time 24.3L, Anion Gap 9, Glomerular Filtration Rate > 60.0, Lactic Acid Level 2.5*H, Calcium Level 9.5, Total Bilirubin 0.3, Direct Bilirubin < 0.1, Aspartate Amino Transf (AST/SGOT) 9, Alanine Aminotransferase (ALT/SGPT) 36, Alkaline Phosphatase 104, Total Creatine Kinase 67, Creatine Kinase MB 1.5, Creatine Kinase MB Relative Index 2.24, Troponin I < 0.02, C-Reactive Protein, Quantitative 0.30, Total Protein 6.6, Albumin 3.6, Albumin/Globulin Ratio 1.2, Amylase Level 31 12/25/19 17:18: Blood Gas Bicarbonate Standard 23.0, Arterial Blood pH 7.530H, Arterial Blood Partial Pressure CO2 23.2L, Arterial Blood Partial Pressure O2 63.8L, Arterial Blood Total CO2 19.7L, Arterial Blood HCO3 19.0L, Arterial Blood Base Excess - 1.7, Arterial Blood Oxygen Saturation 94.0L 12/25/19 18:37: Urine Color YELLOW, Urine Appearance CLEAR, Urine pH 5.0, Urine Specific [place] 1.010, Urine Protein NEGATIVE, Urine Glucose (Auto)(UA) NEGATIVE, Urine Ketones (Auto) NEGATIVE, Urine Blood 1+H, Urine Nitrite NEGATIVE, Urine Bilirubin NEGATIVE, Urine Urobilinogen 0.2, Urine Leukocyte Esterase (Auto) NEGATIVE, Urine WBC (Auto) 0, Urine RBC (Auto) 4H, Urine Hyaline Casts (Auto) 0, Urine Bacteria (Auto) NEGATIVE, Urine Squamous Epithelial Cells 0, Urine Mucus (Auto) SMALL, Urine Sperm (Auto) 12/26/19 01:19: Bedside Glucose (Misc Panel) 103 12/26/19 01:38: Lactic Acid Level 0.9 12/26/19 05:08: Lactic Acid Level 1.4, Nucleated Red Blood Cells % (auto) 0.0, Anion Gap 7L, Glomerular Filtration Rate > 60.0, Calcium Level 8.5L, Total Bilirubin 0.6#, Aspartate Amino Transf (AST/SGOT) 14, Alanine Aminotransferase (ALT/SGPT) 34, Alkaline Phosphatase 77, Troponin I < 0.02, Total Protein 5.7L, Albumin 3.2, Albumin/Globulin Ratio 1.3 12/26/19 08:24: Bedside Glucose (Misc Panel) 101 12/26/19 09:36: Influenza Type A (RT-PCR) NEGATIVE, Influenza Type B (RT-PCR) NEGATIVE, Methicillin-Resist S.aureus DNA PCR NOT DETECTED 12/26/19 09:45: 12/26/19 11:13: Bedside Glucose (Misc Panel) 126H CBC/BMP Laboratory Tests 12/25/19 17:07 12/26/19 05:08 Microbiology Microbiology 12/26/19 Blood Culture, Received Pending 12/26/19 Blood Culture, Received Pending 12/25/19 Urine Culture, Received Pending Current Medications Current Medications Medications (Trade) Dose Ordered Sig/Paul Route PRN Reason Start Time Stop Time Status Last Admin Dose Admin Acetaminophen (Tylenol Tab) 650 mg Q4H PRN PO PAIN OR FEVER 12/26/19 00:30 12/26/19 10:41 DC Acetaminophen (Tylenol Tab) 650 mg QID PO 12/26/19 10:45 Acetaminophen (Tylenol Tab) 1,000 mg Q6H PRN PO PAIN 12/26/19 00:30 12/26/19 10:46 DC 12/26/19 02:42 Albuterol Sulfate (Proventil, Ventolin Hfa) 2 puff Q4H PRN INH WHEEZING 12/26/19 00:30 Albuterol/ Ipratropium (Duoneb (Ipr 0.5mg/Alb 2.5mg)) 3 ml Q2H PRN INH WHEEZING 12/26/19 00:30 Albuterol/ Ipratropium (Duoneb (Ipr 0.5mg/Alb 2.5mg)) 3 ml RQ4H INH 12/26/19 04:00 12/26/19 11:05 Budesonide/ Formoterol Fumarate (Symbicort 80/ 4.5mcg) 2 puff RBID INH 12/25/19 20:00 12/26/19 07:20 Dextrose (Dextrose 50%) 25 ml ASDIRECTED PRN IV SEE LABEL COMMENTS 12/26/19 01:00 Enoxaparin Sodium (Lovenox) 40 mg DAILY SC 12/26/19 09:00 12/26/19 09:01 Glucagon (Glucagon) 1 mg ASDIRECTED PRN SC SEE LABEL COMMENTS 12/26/19 01:00 Glucose (Glucose) 16 GM ASDIRECTED PRN PO SEE LABEL COMMENTS 12/26/19 01:00 Guaifenesin (Mucinex Tab Er) 600 mg BID PRN PO CONGESTION 12/26/19 00:30 Home Med (Med Rec Complete!) ASDIRECTED XX 12/25/19 21:15 12/25/19 21:13 DC Hydrochlorothiazide (Hydrodiuril) 12.5 mg DAILY PO 12/26/19 09:00 12/26/19 09:01 Insulin Human Lispro (HumaLOG INSULIN) SEE PROTOCOL TABLE AC SC 12/26/19 07:30 12/26/19 11:32 Insulin Human Lispro (HumaLOG INSULIN) SEE PROTOCOL TABLE QHS SC 12/25/19 21:00 Lisinopril (Prinivil) 20 mg DAILY PO 12/26/19 09:00 12/26/19 09:00 Magnesium Hydroxide (Milk Of Magnesia) 30 ml DAILY PRN PO CONSTIPATION 12/26/19 00:30 Pantoprazole Sodium (Protonix) 40 mg DAILY PO 12/26/19 09:00 12/26/19 09:00 Piperacillin Sod/ Tazobactam Sod 4.5 gm/Dextrose 100 ml @ 100 mls/hr Q6H IV 12/26/19 02:00 12/26/19 09:02 Prednisone (Deltasone) 40 mg DAILY PO 12/26/19 09:00 12/26/19 10:41 DC 12/26/19 09:00 Prednisone (Deltasone) 60 mg DAILY PO 12/27/19 09:00 Simvastatin (Zocor) 20 mg QHS PO 12/25/19 21:00 12/26/19 05:14 Sodium Chloride 1,000 ml @ 120 mls/hr Q8H20M IV 12/26/19 00:30 12/26/19 10:47 DC 12/26/19 01:23 Sodium Chloride (Saline Lock Flush) 2 ml ASDIRECTED PRN IV SEE LABEL COMMENTS 12/26/19 11:00 Sodium Chloride (Saline Lock Flush) 2 ml SLF IV 12/26/19 14:00 Vancomycin HCl 1000 mg/IV Miscellaneous Supplies 1 each/ Dextrose 270 ml @ 270 mls/hr Q8H IV 12/26/19 04:00 12/26/19 11:31 Vancomycin HCl 1230 mg/IV Miscellaneous Supplies 24.6 ml @ 24.6 mls/hr Q12H IV 12/26/19 00:30 12/26/19 01:50 DC Allergies Coded Allergies: No Known Allergies (Unverified , 09/17/19) Evon Rodarte MD Dec 26, 2019 13:31
[2019-12-26] MEDS: SLF 3 ML SYR IV SCH ×2 (14:00→21:49)
[2019-12-26] MEDS: DOXYCYCLINE HYCLATE 100MG TABLET PO SCH ×2 (14:00→21:49)
[2019-12-26] MEDS: cefTRIAXone SOD 1 GM in D5W MINI-BAG PLUS 50 ML IV SCH (14:01)
[2019-12-26] MEDS ORDERED: predniSONE 20 MG TAB PO ONE (14:15)
[2019-12-27] VITALS (7 sets, daily range): BP systolic 122–149; BP diastolic 73–90
[2019-12-27] MEDS: IPRATROPIUM 0.5MG/ALBUTEROL 2.5MG INH SOL UD 3ML (DUONEB) INH SCH ×6 (04:07→23:41)
[2019-12-27 05:28] LABS: BASO % 0.2 % (0.0-1.0); EOS % 0.1 % (0.0-3.0); HEMOGLOBIN 13.2 g/dl (13.5-17.5); LYMPH # 1.5 10^3/uL (1.5-5.0); LYMPH % 10.8 % (24.0-44.0); MEAN CORPUSCULAR HEMOGLOBIN 28.5 pg (27.0-33.0); MEAN CORPUSCULAR HGB CONC 32.2 g/dl (32.0-36.5); MEAN CORPUSCULAR VOLUME 88.6 fl (80.0-96.0); MONO # 0.9 10^3/uL (0.0-0.8); MONO % 6.6 % (0.0-5.0); NEUTROPHILS # 10.9 10^3/uL (1.5-8.5); NEUTROPHILS % 81.5 % (36.0-66.0); PLATELET COUNT, AUTOMATED 344 10^3/uL (150-450); RED BLOOD COUNT 4.63 10^6/uL (4.30-6.10); WHITE BLOOD COUNT 13.4 10^3/uL (4.0-10.0)
[2019-12-27] MEDS: SLF 3 ML SYR IV SCH ×3 (05:29→22:00)
[2019-12-27 05:57] LABS: ALBUMIN 3.1 GM/DL (3.2-5.2); ALT/SGPT 28 U/L (12-78); BILIRUBIN,TOTAL 0.3 MG/DL (0.2-1.0); BLOOD UREA NITROGEN 20 MG/DL (7-18); CALCIUM LEVEL 8.6 MG/DL (8.8-10.2); CARBON DIOXIDE LEVEL 26 MEQ/L (21-32); CHLORIDE LEVEL 110 MEQ/L (98-107); CREATININE FOR GFR 1.11 MG/DL (0.70-1.30); GLOMERULAR FILTRATION RATE > 60.0 (>49); GLUCOSE, FASTING 117 MG/DL (70-100); POTASSIUM SERUM 3.7 MEQ/L (3.5-5.1); SODIUM LEVEL 143 MEQ/L (136-145); TOTAL PROTEIN 5.7 GM/DL (6.4-8.2)
[2019-12-27] MEDS: HumaLOG INSULIN (NovoLOG) PER UNIT SC SCH ×4 (07:30→21:00)
[2019-12-27] MEDS: SYMBICORT 80/4.5MCG INHALER 6GM INH SCH ×2 (07:32→19:28)
[2019-12-27] MEDS ORDERED: FLUBLOK(EGG FREE)(QUAD)INFLUENZA VACC 0.5ML SYRINGE 18YRS & OLDER IM ONE (09:00)
[2019-12-27] MEDS: PANTOPRAZOLE 40MG TAB (PROTONIX) PO SCH (09:40)
[2019-12-27] MEDS: predniSONE 20 MG TAB PO SCH (09:41)
[2019-12-27] MEDS: ACETAMINOPHEN TAB 650MG DOSE (2X325MG) PO SCH ×4 (09:42→21:06)
[2019-12-27] MEDS: lisinopriL 20 MG TAB PO SCH (09:43)
[2019-12-27] MEDS: DOXYCYCLINE HYCLATE 100MG TABLET PO SCH ×2 (09:44→21:06)
[2019-12-27] MEDS: hydroCHLOROthiazide 12.5 MG CAPSULE PO SCH (09:44)
[2019-12-27] MEDS: ENOXAPARIN 40MG/0.4ML SYRINGE (J1650 PER 10MG) SC SCH (09:48)
--- NOTE | 2019-12-27 14:06 | IPNPDOC ---
Date Seen The patient was seen on 12/27/19. Progress Note SUBJECTIVE: Chest pain much improved; however, still present at times with very deep breathing. WBC 13K, currently on RA. Blood can sputum cultures currently pending. Did poorly with PT, will likely need ARU when medically improved. He currently denies nausea, vomiting, chills, fevers, abdominal pain, increased shortness of breath. OBJECTIVE: PHYSICAL EXAMINATION: VS: See below Constitutional: Awake and alert, no acute distress ENT: Sclera are clear. Mucosa is moist. Respiratory: Lungs mildly wheezing throughout both lung marie. Rhonchi or rales. No use of accessory muscles. Cardiovascular: RRR S1 and S2 are normal, no murmur Chest: pain on palpation of anterior chest Gastrointestinal: Abdomen is soft, non distended, non tender, BS present. Musculoskeletal: No edema Neurologic: No focal neurological deficit. Mental Status: A&O x3, normal affect Skin: Warm, dry LABORATORY DATA: See below. MICROBIOLOGY: BCx NG at 24 hours x 2 sets Sputum GS: GOOD sample, mANY WBCS, fEW GRAM NEGATIVE RODS, fEW GRAM POSITIVE VITOR Sputum Cx pending Urine strep Ag and Legionella pending ASSESSMENT: 59-year-old male with past medical history of COPD, HTN, HLD, presents to the emergency department for shortness of breath admitted for PNA and acute on chronic COPD exacerbation. PLAN: # Community acquired PNA, sepsis . Recent rhinovirus + - WBC 13K, [place] wnl this AM. - Micro above, f/u sputum cx - Day 2 ceftriaxone, doxy BID - Nebulizer PRN, ATC # Acute on chronic COPD exacerbation - Improved slightly today - C/w ATC, PRN nebulizer, prednisone, symbicort #Chest pain likely 2/2 to pleurisy vs. costochondritis - Improved significantly since 12/26/19 - C/w ATC tylenol, prednisone, pain control - Tx PNA above - Not cardiac cause #Physical deconditioning 2/2 to acute issues above -PT: benefit from continued rehab -Possible ARU after this inpatient stay -C/w PT/OT # Pulmonary nodules -Following with Dr. Ramirez as o/p. Discussed case with him today. They are m onitoring with repeat CT's Q6 mo. -Last visit 2 weeks ago. #Hepatic nodules -Seen on prior imaging -AST/ALT wnl -F/u with PCP # HTN -C/w home medications # HLD -C/w statin # DVT px -Lovenox DISPOSITION: Admitted under inpatient status. Plan is probably ARU when medically appropriate. VS, I&O, 24H, Fishbone Vital Signs/I&O Vital Signs Date Time Temp Pulse Resp B/P (MAP) Pulse Ox O2 Delivery O2 Flow Rate FiO2 12/27/19 12:00 97.9 84 24 130/78 (95) 97 Room Air I&O- Last 24 Hours up to 6 AM 12/27/19 06:00 Intake Total 1520 ml Output Total 2505 ml Balance -985 ml Laboratory Data 24H LABS Laboratory Tests 2 12/26/19 17:02: Bedside Glucose (Misc Panel) 201H 12/26/19 21:30: Bedside Glucose (Misc Panel) 178H 12/27/19 05:01: Immature Granulocyte % (Auto) 0.8, Neutrophils (%) (Auto) 81.5H, Lymphocytes (%) (Auto) 10.8L, Monocytes (%) (Auto) 6.6H, Eosinophils (%) (Auto) 0.1, Basophils (%) (Auto) 0.2, Neutrophils # (Auto) 10.9H, Lymphocytes # (Auto) 1.5, Monocytes # (Auto) 0.9H, Eosinophils # (Auto) 0.0, Basophils # (Auto) 0.0, Nucleated Red Blood Cells % (auto) 0.0, Anion Gap 7L, Glomerular Filtration Rate > 60.0, Calcium Level 8.6L, Total Bilirubin 0.3, Aspartate Amino Transf (AST/SGOT) 7, Alanine Aminotransferase (ALT/SGPT) 28, Alkaline Phosphatase 80, Total Protein 5.7L, Albumin 3.1L, Albumin/Globulin Ratio 1.2 12/27/19 11:39: Bedside Glucose (Misc Panel) 107 CBC/BMP Laboratory Tests 12/27/19 05:01 Microbiology Microbiology 12/26/19 Gram Stain - Final, Resulted 12/26/19 Sputum Culture, Resulted Pending 12/26/19 Blood Culture - Preliminary, Resulted No growth after 24 hours . All specim... 12/26/19 Blood Culture - Preliminary, Resulted No growth after 24 hours . All specim... 12/25/19 Urine Culture - Final, Complete Current Medications Current Medications Medications (Trade) Dose Ordered Sig/Paul Route PRN Reason Start Time Stop Time Status Last Admin Dose Admin Acetaminophen (Tylenol Tab) 650 mg Q4H PRN PO PAIN OR FEVER 12/26/19 00:30 12/26/19 10:41 DC Acetaminophen (Tylenol Tab) 650 mg QID PO 12/26/19 10:45 12/27/19 12:15 Acetaminophen (Tylenol Tab) 1,000 mg Q6H PRN PO PAIN 12/26/19 00:30 12/26/19 10:46 DC 12/26/19 02:42 Albuterol Sulfate (Proventil, Ventolin Hfa) 2 puff Q4H PRN INH WHEEZING 12/26/19 00:30 Albuterol/ Ipratropium (Duoneb (Ipr 0.5mg/Alb 2.5mg)) 3 ml Q2H PRN INH WHEEZING 12/26/19 00:30 Albuterol/ Ipratropium (Duoneb (Ipr 0.5mg/Alb 2.5mg)) 3 ml RQ4H INH 12/26/19 04:00 12/27/19 10:59 Budesonide/ Formoterol Fumarate (Symbicort 80/ 4.5mcg) 2 puff RBID INH 12/25/19 20:00 12/27/19 07:32 Ceftriaxone Sodium 1 gm/ Dextrose 50 ml @ 100 mls/hr Q24H IV 12/26/19 14:00 12/26/19 14:01 Dextrose (Dextrose 50%) 25 ml ASDIRECTED PRN IV SEE LABEL COMMENTS 12/26/19 01:00 Doxycycline Hyclate (Vibramycin) 100 mg BID PO 12/26/19 09:00 12/27/19 09:44 Enoxaparin Sodium (Lovenox) 40 mg DAILY SC 12/26/19 09:00 12/27/19 09:48 Glucagon (Glucagon) 1 mg ASDIRECTED PRN SC SEE LABEL COMMENTS 12/26/19 01:00 Glucose (Glucose) 16 GM ASDIRECTED PRN PO SEE LABEL COMMENTS 12/26/19 01:00 Guaifenesin (Mucinex Tab Er) 600 mg BID PRN PO CONGESTION 12/26/19 00:30 Home Med (Med Rec Complete!) ASDIRECTED XX 12/25/19 21:15 12/25/19 21:13 DC Hydrochlorothiazide (Hydrodiuril) 12.5 mg DAILY PO 12/26/19 09:00 12/27/19 09:44 Insulin Human Lispro (HumaLOG INSULIN) SEE PROTOCOL TABLE AC SC 12/26/19 07:30 12/27/19 12:16 Insulin Human Lispro (HumaLOG INSULIN) SEE PROTOCOL TABLE QHS SC 12/25/19 21:00 Lisinopril (Prinivil) 20 mg DAILY PO 12/26/19 09:00 12/27/19 09:43 Magnesium Hydroxide (Milk Of Magnesia) 30 ml DAILY PRN PO CONSTIPATION 12/26/19 00:30 Pantoprazole Sodium (Protonix) 40 mg DAILY PO 12/26/19 09:00 12/27/19 09:40 Piperacillin Sod/ Tazobactam Sod 4.5 gm/Dextrose 100 ml @ 100 mls/hr Q6H IV 12/26/19 02:00 12/26/19 13:34 DC 12/26/19 09:02 Prednisone (Deltasone) 40 mg DAILY PO 12/26/19 09:00 12/26/19 10:41 DC 12/26/19 09:00 Prednisone (Deltasone) 60 mg DAILY PO 12/27/19 09:00 12/27/19 09:41 Simvastatin (Zocor) 20 mg QHS PO 12/25/19 21:00 12/26/19 21:49 Sodium Chloride 1,000 ml @ 120 mls/hr Q8H20M IV 12/26/19 00:30 12/26/19 10:47 DC 12/26/19 01:23 Sodium Chloride (Saline Lock Flush) 2 ml ASDIRECTED PRN IV SEE LABEL COMMENTS 12/26/19 11:00 Sodium Chloride (Saline Lock Flush) 2 ml SLF IV 12/26/19 14:00 12/27/19 05:29 Vancomycin HCl 1000 mg/IV Miscellaneous Supplies 1 each/ Dextrose 270 ml @ 270 mls/hr Q8H IV 12/26/19 04:00 12/26/19 13:34 DC 12/26/19 11:31 Vancomycin HCl 1230 mg/IV Miscellaneous Supplies 24.6 ml @ 24.6 mls/hr Q12H IV 12/26/19 00:30 10/7/20 01:50 DC Allergies Coded Allergies: No Known Allergies (Unverified , 09/17/19) Evon Rodarte MD Dec 27, 2019 14:06
[2019-12-27] MEDS: cefTRIAXone SOD 1 GM in D5W MINI-BAG PLUS 50 ML IV SCH (14:47)
[2019-12-27] MEDS: guaiFENesin ER 600 MG TAB PO PRN (18:06)
--- NOTE | 2019-12-27 19:26 | ECGEPIP ---
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
[2019-12-27] MEDS: SIMVASTATIN 20 MG TAB PO SCH (21:06)
[2019-12-28] VITALS (9 sets, daily range): BP systolic 122–180; BP diastolic 60–97
[2019-12-28] MEDS: IPRATROPIUM 0.5MG/ALBUTEROL 2.5MG INH SOL UD 3ML (DUONEB) INH SCH ×6 (03:22→23:57)
[2019-12-28 05:24] LABS: BASO % 0.1 % (0.0-1.0); EOS % 0.2 % (0.0-3.0); HEMATOCRIT 42.3 % (42.0-52.0); LYMPH # 2.2 10^3/uL (1.5-5.0); LYMPH % 13.4 % (24.0-44.0); MEAN CORPUSCULAR HGB CONC 33.1 g/dl (32.0-36.5); MEAN CORPUSCULAR VOLUME 87.8 fl (80.0-96.0); MONO # 1.1 10^3/uL (0.0-0.8); MONO % 6.8 % (0.0-5.0); NEUTROPHILS # 12.6 10^3/uL (1.5-8.5); NEUTROPHILS % 78.6 % (36.0-66.0); PLATELET COUNT, AUTOMATED 338 10^3/uL (150-450); RED BLOOD COUNT 4.82 10^6/uL (4.30-6.10)
[2019-12-28 05:54] LABS: ALBUMIN 3.1 GM/DL (3.2-5.2); ALT/SGPT 29 U/L (12-78); BILIRUBIN,TOTAL 0.4 MG/DL (0.2-1.0); BLOOD UREA NITROGEN 20 MG/DL (7-18); CARBON DIOXIDE LEVEL 24 MEQ/L (21-32); CHLORIDE LEVEL 107 MEQ/L (98-107); CREATININE FOR GFR 1.04 MG/DL (0.70-1.30); GLOMERULAR FILTRATION RATE > 60.0 (>49); GLUCOSE, FASTING 99 MG/DL (70-100); POTASSIUM SERUM 3.9 MEQ/L (3.5-5.1); SODIUM LEVEL 139 MEQ/L (136-145); TOTAL PROTEIN 5.9 GM/DL (6.4-8.2)
[2019-12-28] MEDS: SLF 3 ML SYR IV SCH ×5 (06:00→21:55)
[2019-12-28] MEDS: SYMBICORT 80/4.5MCG INHALER 6GM INH SCH ×2 (07:26→19:56)
[2019-12-28] MEDS: HumaLOG INSULIN (NovoLOG) PER UNIT SC SCH ×4 (07:30→21:00)
[2019-12-28] MEDS: lisinopriL 20 MG TAB PO SCH (09:18)
[2019-12-28] MEDS: ACETAMINOPHEN TAB 650MG DOSE (2X325MG) PO SCH ×4 (09:18→21:05)
[2019-12-28] MEDS: DOXYCYCLINE HYCLATE 100MG TABLET PO SCH ×2 (09:19→21:05)
[2019-12-28] MEDS: predniSONE 20 MG TAB PO SCH (09:19)
[2019-12-28] MEDS: hydroCHLOROthiazide 12.5 MG CAPSULE PO SCH (09:19)
[2019-12-28] MEDS: PANTOPRAZOLE 40MG TAB (PROTONIX) PO SCH ×2 (09:19→21:05)
[2019-12-28] MEDS: ENOXAPARIN 40MG/0.4ML SYRINGE (J1650 PER 10MG) SC SCH (09:19)
[2019-12-28] MEDS ORDERED: SLF 3 ML SYR IV PRN (11:15)
--- NOTE | 2019-12-28 12:26 | IPNPDOC ---
Date Seen The patient was seen on 12/28/19. Progress Note SUBJECTIVE: Intermittent chest discomfort persists, describing both pleuritic pain and likely pain related to hiatal hernia. No n/v. WBC 16K, likely steroid induced. Awaiting sputum culture results and likely ARU when those return. He currently denies nausea, vomiting, chills, fevers, abdominal pain, shortness of breath. OBJECTIVE: PHYSICAL EXAMINATION: VS: PLease see below Constitutional: Awake and alert, no acute distress ENT: Sclera are clear. Mucosa is moist. Respiratory: CTAB. no Rhonchi or rales. No use of accessory muscles. Cardiovascular: RRR S1 and S2 are normal, no murmur Chest: pain on palpation of anterior chest- mild and improved Gastrointestinal: Abdomen is soft, non distended, non tender, BS present. Musculoskeletal: No edema Neurologic: No focal neurological deficit. Mental Status: A&O x3, normal affect Skin: Warm, dry LABORATORY DATA: See below. MICROBIOLOGY: BCx NG at 24 hours x 2 sets Sputum GS: GOOD sample, mANY WBCS, fEW GRAM NEGATIVE RODS, fEW GRAM POSITIVE VITOR Sputum Cx pending Urine strep Ag and Legionella pending ASSESSMENT: 59-year-old male with past medical history of COPD, HTN, HLD, presents to the emergency department for shortness of breath admitted for PNA and acute on chronic COPD exacerbation. PLAN: # Community acquired PNA, sepsis . Recent rhinovirus + - WBC 16K (incr likely steroid induced) - Micro above, f/u sputum cx - Day 3 ceftriaxone, doxy BID - Nebulizer PRN, ATC # Acute on chronic COPD exacerbation- resolved - No longer wheezing or short of breath at rest - C/w ATC, PRN nebulizer, prednisone, symbicort #Chest pain likely multifactorial 2/2 to pleurisy vs. costochondritis AND Gi cause at times (hiatal hernia) - Improved significantly since 12/26/19 with addition of steroid; however, still intermittent - C/w ATC tylenol, prednisone, pain control - Tx PNA above - Not cardiac cause -Recommend referral to GI specialist after discharge to further assess GI cause #Physical deconditioning 2/2 to acute issues above -PT: benefit from continued rehab -Possible ARU after this inpatient stay -C/w PT/OT # Pulmonary nodules -Following with Dr. Ramirez as o/p. Discussed case with him today. They are monitoring with repeat CT's Q6 mo. -Last visit 2 weeks ago. #Hepatic nodules -Seen on prior imaging -AST/ALT wnl -F/u with PCP # HTN -C/w home medications # HLD -C/w statin # DVT px -Lovenox DISPOSITION: Admitted under inpatient status. Awaiting sputum culture results still. Plan is probably ARU when medically appropriate. If after weekend patient is even more improved and doing better, possibly home with PT or o/p PT. . VS, I&O, 24H, Fishbone Vital Signs/I&O Vital Signs Date Time Temp Pulse Resp B/P (MAP) Pulse Ox O2 Delivery O2 Flow Rate FiO2 12/28/19 09:18 148/58 12/28/19 08:00 98.6 83 18 96 Room Air I&O- Last 24 Hours up to 6 AM 12/28/19 06:00 Intake Total 900 ml Output Total 760 ml Balance 140 ml Laboratory Data 24H LABS Laboratory Tests 2 12/27/19 17:17: Bedside Glucose (Misc Panel) 238H 12/27/19 20:59: Bedside Glucose (Misc Panel) 173H 12/28/19 04:49: Immature Granulocyte % (Auto) 0.9, Neutrophils (%) (Auto) 78.6H, Lymphocytes (%) (Auto) 13.4L, Monocytes (%) (Auto) 6.8H, Eosinophils (%) (Auto) 0.2, Basophils (%) (Auto) 0.1, Neutrophils # (Auto) 12.6H, Lymphocytes # (Auto) 2.2, Monocytes # (Auto) 1.1H, Eosinophils # (Auto) 0.0, Basophils # (Auto) 0.0, Nucleated Red Blood Cells % (auto) 0.0, Anion Gap 8, Glomerular Filtration Rate > 60.0, Calcium Level 9.0, Total Bilirubin 0.4, Aspartate Amino Transf (AST/SGOT) 9, Alanine Aminotransferase (ALT/SGPT) 29, Alkaline Phosphatase 79, Total Protein 5.9L, Albumin 3.1L, Albumin/Globulin Ratio 1.1 12/28/19 12:09: Bedside Glucose (Misc Panel) 144H CBC/BMP Laboratory Tests 12/28/19 04:49 Microbiology Microbiology 12/26/19 Gram Stain - Final, Resulted 12/26/19 Sputum Culture, Resulted Pending 12/26/19 Blood Culture - Preliminary, Resulted No Growth after 48 hours. All Specime... 12/26/19 Blood Culture - Preliminary, Resulted No Growth after 48 hours. All Specime... 12/25/19 Urine Culture - Final, Complete Current Medications Current Medications Medications (Trade) Dose Ordered Sig/Paul Route PRN Reason Start Time Stop Time Status Last Admin Dose Admin Acetaminophen (Tylenol Tab) 650 mg Q4H PRN PO PAIN OR FEVER 12/26/19 00:30 12/26/19 10:41 DC Acetaminophen (Tylenol Tab) 650 mg QID PO 12/26/19 10:45 12/28/19 09:18 Acetaminophen (Tylenol Tab) 1,000 mg Q6H PRN PO PAIN 12/26/19 00:30 12/26/19 10:46 DC 12/26/19 02:42 Albuterol Sulfate (Proventil, Ventolin Hfa) 2 puff Q4H PRN INH WHEEZING 12/26/19 00:30 Albuterol/ Ipratropium (Duoneb (Ipr 0.5mg/Alb 2.5mg)) 3 ml Q2H PRN INH WHEEZING 12/26/19 00:30 Albuterol/ Ipratropium (Duoneb (Ipr 0.5mg/Alb 2.5mg)) 3 ml RQ4H INH 12/26/19 04:00 12/28/19 11:10 Budesonide/ Formoterol Fumarate (Symbicort 80/ 4.5mcg) 2 puff RBID INH 12/25/19 20:00 12/28/19 07:26 Ceftriaxone Sodium 1 gm/ Dextrose 50 ml @ 100 mls/hr Q24H IV 12/26/19 14:00 12/27/19 14:47 Dextrose (Dextrose 50%) 25 ml ASDIRECTED PRN IV SEE LABEL COMMENTS 12/26/19 01:00 Doxycycline Hyclate (Vibramycin) 100 mg BID PO 12/26/19 09:00 12/28/19 09:19 Enoxaparin Sodium (Lovenox) 40 mg DAILY SC 12/26/19 09:00 12/28/19 09:19 Glucagon (Glucagon) 1 mg ASDIRECTED PRN SC SEE LABEL COMMENTS 12/26/19 01:00 Glucose (Glucose) 16 GM ASDIRECTED PRN PO SEE LABEL COMMENTS 12/26/19 01:00 Guaifenesin (Mucinex Tab Er) 600 mg BID PRN PO CONGESTION 12/26/19 00:30 12/27/19 18:06 Home Med (Med Rec Complete!) ASDIRECTED XX 12/25/19 21:15 12/25/19 21:13 DC Hydrochlorothiazide (Hydrodiuril) 12.5 mg DAILY PO 12/26/19 09:00 12/28/19 09:19 Insulin Human Lispro (HumaLOG INSULIN) SEE PROTOCOL TABLE AC SC 12/26/19 07:30 12/27/19 18:08 Insulin Human Lispro (HumaLOG INSULIN) SEE PROTOCOL TABLE QHS SC 12/25/19 21:00 Lisinopril (Prinivil) 20 mg DAILY PO 12/26/19 09:00 12/28/19 09:18 Magnesium Hydroxide (Milk Of Magnesia) 30 ml DAILY PRN PO CONSTIPATION 12/26/19 00:30 Pantoprazole Sodium (Protonix) 40 mg DAILY PO 12/26/19 09:00 12/28/19 09:19 Piperacillin Sod/ Tazobactam Sod 4.5 gm/Dextrose 100 ml @ 100 mls/hr Q6H IV 12/26/19 02:00 12/26/19 13:34 DC 12/26/19 09:02 Prednisone (Deltasone) 40 mg DAILY PO 12/26/19 09:00 12/26/19 10:41 DC 12/26/19 09:00 Prednisone (Deltasone) 60 mg DAILY PO 12/27/19 09:00 12/28/19 09:19 Simvastatin (Zocor) 20 mg QHS PO 12/25/19 21:00 12/27/19 21:06 Sodium Chloride 1,000 ml @ 120 mls/hr Q8H20M IV 12/26/19 00:30 12/26/19 10:47 DC 12/26/19 01:23 Sodium Chloride (Saline Lock Flush) 2 ml ASDIRECTED PRN IV SEE LABEL COMMENTS 12/26/19 11:00 Sodium Chloride (Saline Lock Flush) 2 ml ASDIRECTED PRN IV SEE LABEL COMMENTS 12/28/19 11:15 Sodium Chloride (Saline Lock Flush) 2 ml SLF IV 12/26/19 14:00 12/28/19 06:00 Sodium Chloride (Saline Lock Flush) 2 ml SLF IV 12/28/19 14:00 Vancomycin HCl 1000 mg/IV Miscellaneous Supplies 1 each/ Dextrose 270 ml @ 270 mls/hr Q8H IV 12/26/19 04:00 12/26/19 13:34 DC 12/26/19 11:31 Vancomycin HCl 1230 mg/IV Miscellaneous Supplies 24.6 ml @ 24.6 mls/hr Q12H IV 12/26/19 00:30 12/26/19 01:50 DC Allergies Coded Allergies: No Known Allergies (Unverified , 09/17/19) Evon Rodarte MD Dec 28, 2019 12:26
[2019-12-28] MEDS: cefTRIAXone SOD 1 GM in D5W MINI-BAG PLUS 50 ML IV SCH (12:57)
[2019-12-28] MEDS ORDERED: MORPHINE 2 MG/ML 1ML VIAL (J2270) IV ONE (13:15)
[2019-12-28 14:12] LABS: BODY FLUID CULTURE Not indicated. (.); LEGIONELLA ANTIGEN URINE Negative (Negative); ORGANISM ID Not indicated. (.); SPECIMEN SOURCE Urine (.); URINE STREP PNEUMONIAE ANTIGEN Negative (Negative)
[2019-12-28] MEDS: SUCRALFATE SUSP 1GM/10ML UD PO SCH ×3 (15:04→21:04)
[2019-12-28] MEDS: guaiFENesin ER 600 MG TAB PO PRN (17:41)
[2019-12-28] MEDS ORDERED: SUCRALFATE SUSP 1GM/10ML UD PO SCH (21:00)
[2019-12-28] MEDS: SIMVASTATIN 20 MG TAB PO SCH (21:05)
[2019-12-29] VITALS: BP 113/75
[2019-12-29 04:00] VITALS: BP 119/72
[2019-12-29] MEDS: IPRATROPIUM 0.5MG/ALBUTEROL 2.5MG INH SOL UD 3ML (DUONEB) INH SCH ×5 (04:13→19:47)
[2019-12-29 04:27] LABS: BASO % 0.2 % (0.0-1.0); EOS % 0.3 % (0.0-3.0); HEMATOCRIT 42.3 % (42.0-52.0); HEMOGLOBIN 13.7 g/dl (13.5-17.5); LYMPH # 1.8 10^3/uL (1.5-5.0); LYMPH % 12.5 % (24.0-44.0); MEAN CORPUSCULAR HEMOGLOBIN 28.8 pg (27.0-33.0); MEAN CORPUSCULAR HGB CONC 32.4 g/dl (32.0-36.5); MEAN CORPUSCULAR VOLUME 89.1 fl (80.0-96.0); MONO # 0.9 10^3/uL (0.0-0.8); MONO % 6.4 % (0.0-5.0); NEUTROPHILS # 11.2 10^3/uL (1.5-8.5); NEUTROPHILS % 79.4 % (36.0-66.0); PLATELET COUNT, AUTOMATED 347 10^3/uL (150-450); RED BLOOD COUNT 4.75 10^6/uL (4.30-6.10); WHITE BLOOD COUNT 14.1 10^3/uL (4.0-10.0)
[2019-12-29 04:59] LABS: ALBUMIN 3.2 GM/DL (3.2-5.2); ALT/SGPT 29 U/L (12-78); BILIRUBIN,TOTAL 0.3 MG/DL (0.2-1.0); BLOOD UREA NITROGEN 24 MG/DL (7-18); CALCIUM LEVEL 8.8 MG/DL (8.8-10.2); CARBON DIOXIDE LEVEL 27 MEQ/L (21-32); CHLORIDE LEVEL 108 MEQ/L (98-107); CREATININE FOR GFR 1.15 MG/DL (0.70-1.30); GLOMERULAR FILTRATION RATE > 60.0 (>49); GLUCOSE, FASTING 106 MG/DL (70-100); POTASSIUM SERUM 3.6 MEQ/L (3.5-5.1); SODIUM LEVEL 139 MEQ/L (136-145); TOTAL PROTEIN 6.1 GM/DL (6.4-8.2)
[2019-12-29] MEDS: SLF 3 ML SYR IV SCH ×6 (05:22→21:06)
[2019-12-29] MEDS: SYMBICORT 80/4.5MCG INHALER 6GM INH SCH ×2 (07:21→19:47)
[2019-12-29] MEDS: HumaLOG INSULIN (NovoLOG) PER UNIT SC SCH ×4 (07:30→21:00)
[2019-12-29 07:43] VITALS: BP 137/94
[2019-12-29] MEDS: ACETAMINOPHEN TAB 650MG DOSE (2X325MG) PO SCH ×4 (08:37→21:01)
[2019-12-29] MEDS: hydroCHLOROthiazide 12.5 MG CAPSULE PO SCH (08:37)
[2019-12-29] MEDS: DOXYCYCLINE HYCLATE 100MG TABLET PO SCH ×2 (08:37→21:01)
[2019-12-29] MEDS: PANTOPRAZOLE 40MG TAB (PROTONIX) PO SCH ×2 (08:37→21:01)
[2019-12-29] MEDS: lisinopriL 20 MG TAB PO SCH (08:37)
[2019-12-29] MEDS: SUCRALFATE SUSP 1GM/10ML UD PO SCH ×4 (08:37→21:01)
[2019-12-29] MEDS: ENOXAPARIN 40MG/0.4ML SYRINGE (J1650 PER 10MG) SC SCH (08:37)
[2019-12-29] MEDS ORDERED: NS 500 ML IV ONE (10:00)
[2019-12-29 12:00] VITALS: BP 144/96
[2019-12-29 12:34] LABS: C REACTIVE PROTEIN QUANTITATIV < 0.30 MG/DL (0.00-0.30)
[2019-12-29] MEDS: cefTRIAXone SOD 1 GM in D5W MINI-BAG PLUS 50 ML IV SCH (13:41)
--- NOTE | 2019-12-29 15:02 | IPNPDOC ---
Date Seen The patient was seen on 12/29/19. Progress Note SUBJECTIVE: Intermittent chest discomfort persists at times, not improved with home sucralfate. Seen by Dr. De Jesus today who ordered various testing to r/o alternative causes of pain. WBC further improved, likely steroid induced. Sputum culture normal geronimo. He currently denies nausea, vomiting, chills, fevers, abdominal pain, shortness of breath. OBJECTIVE: PHYSICAL EXAMINATION: VS: PLease see below Constitutional: Awake and alert, no acute distress ENT: Sclera are clear. Mucosa is moist. Respiratory: CTAB. no Rhonchi or rales. No use of accessory muscles. Cardiovascular: RRR S1 and S2 are normal, no murmur Chest: pain on palpation of anterior left chest- mild, worsened with deep breathing also. Gastrointestinal: Abdomen is soft, non distended, mild RUQ abd pain, BS present. Musculoskeletal: No edema Neurologic: No focal neurological deficit. Mental Status: A&O x3, normal affect Skin: Warm, dry LABORATORY DATA: See below. MICROBIOLOGY: BCx NG at 24 hours x 2 sets Sputum GS: GOOD sample, MANY WBCS, fEW GRAM NEGATIVE RODS, fEW GRAM POSITIVE VITOR Sputum Cx: NF Urine strep Ag and Legionella: neg ASSESSMENT: 59-year-old male with past medical history of COPD, HTN, HLD, presents to the emergency department for shortness of breath admitted for PNA and acute on chronic COPD exacerbation. PLAN: # Community acquired PNA, sepsis . Recent rhinovirus + - WBC 14.1K - Micro above, sputum cx neg - Day 4 ceftriaxone, doxy BID - Nebulizer PRN, ATC - Pulmonary assessed, f/u recommendations #Chest pain likely multifactorial 2/2 to pleurisy vs. costochondritis AND GI cause at times (hiatal hernia) vs. ? cholecystitis - Improved significantly since 12/26/19 however, still intermittent - C/w ATC tylenol, pain control - Tx PNA above - Not cardiac cause - Pulmonary assessed, f/u recommendations -Recommend referral to GI specialist after discharge to further assess GI cause #RUQ pain -? cholecystitis that has been getting treated with abx -F/u US RUQ -AST/ALT wnl # Acute on chronic COPD exacerbation- resolved - No longer wheezing or short of breath at rest - C/w ATC, PRN nebulizer,symbicort #Physical deconditioning 2/2 to acute issues above -PT: benefit from continued rehab -Possible ARU after this inpatient stay -C/w PT/OT # Pulmonary nodules -Following with Dr. Ramirez as o/p. Discussed case with him. They are monitoring with repeat CT's Q6 mo. -Last visit 2 weeks ago. #Hepatic nodules -Seen on prior imaging -AST/ALT wnl -F/u with PCP # HTN -C/w home medications # HLD -C/w statin #Hx of hepatitis -Unknown if treated in past -F/u hepatitis studies # DVT px -Lovenox DISPOSITION: Admitted under inpatient status. Plan is probably ARU when medically appropriate. If after weekend patient is even more improved and doing better, possibly home with PT or o/p PT. . [facility] Vital Signs Date Time Temp Pulse Resp B/P (MAP) Pulse Ox O2 Delivery O2 Flow Rate FiO2 12/29/19 12:00 98.9 87 16 144/96 (112) 96 Room Air I&O- Last 24 Hours up to 6 AM 12/29/19 06:00 Intake Total 476 ml Output Total 600 ml Balance -124 ml Laboratory Data 24H LABS Laboratory Tests 2 12/28/19 16:52: Bedside Glucose (Misc Panel) 195H 12/28/19 21:02: Bedside Glucose (Misc Panel) 186H 12/29/19 04:09: Immature Granulocyte % (Auto) 1.2, Neutrophils (%) (Auto) 79.4H, Lymphocytes (%) (Auto) 12.5L, Monocytes (%) (Auto) 6.4H, Eosinophils (%) (Auto) 0.3, Basophils (%) (Auto) 0.2, Neutrophils # (Auto) 11.2H, Lymphocytes # (Auto) 1.8, Monocytes # (Auto) 0.9H, Eosinophils # (Auto) 0.0, Basophils # (Auto) 0.0, Nucleated Red Blood Cells % (auto) 0.0, Anion Gap 4L, Glomerular Filtration Rate > 60.0, Calcium Level 8.8, Total Bilirubin 0.3, Aspartate Amino Transf (AST/SGOT) 13, Alanine Aminotransferase (ALT/SGPT) 29, Alkaline Phosphatase 76, Total Protein 6.1L, Albumin 3.2, Albumin/Globulin Ratio 1.1 12/29/19 12:00: Erythrocyte Sedimentation Rate 1, C-Reactive Protein, Quantitative < 0.30 CBC/BMP Laboratory Tests 12/29/19 04:09 Microbiology Microbiology 12/26/19 Gram Stain - Final, Complete 12/26/19 Sputum Culture - Final, Complete 12/26/19 Blood Culture - Preliminary, Resulted No Growth after 72 hours. All specime... 12/26/19 Blood Culture - Preliminary, Resulted No Growth after 72 hours. All specime... 12/25/19 Urine Culture - Final, Complete Current Medications Current Medications Medications (Trade) Dose Ordered Sig/Paul Route PRN Reason Start Time Stop Time Status Last Admin Dose Admin Acetaminophen (Tylenol Tab) 650 mg Q4H PRN PO PAIN OR FEVER 12/26/19 00:30 12/26/19 10:41 DC Acetaminophen (Tylenol Tab) 650 mg QID PO 12/26/19 10:45 12/29/19 13:41 Acetaminophen (Tylenol Tab) 1,000 mg Q6H PRN PO PAIN 12/26/19 00:30 12/26/19 10:46 DC 12/26/19 02:42 Albuterol Sulfate (Proventil, Ventolin Hfa) 2 puff Q4H PRN INH WHEEZING 12/26/19 00:30 Albuterol/ Ipratropium (Duoneb (Ipr 0.5mg/Alb 2.5mg)) 3 ml Q2H PRN INH WHEEZING 12/26/19 00:30 Albuterol/ Ipratropium (Duoneb (Ipr 0.5mg/Alb 2.5mg)) 3 ml RQ4H INH 12/26/19 04:00 12/29/19 11:04 Budesonide/ Formoterol Fumarate (Symbicort 80/ 4.5mcg) 2 puff RBID INH 12/25/19 20:00 12/29/19 07:21 Ceftriaxone Sodium 1 gm/ Dextrose 50 ml @ 100 mls/hr Q24H IV 12/26/19 14:00 12/29/19 13:41 Dextrose (Dextrose 50%) 25 ml ASDIRECTED PRN IV SEE LABEL COMMENTS 12/26/19 01:00 Doxycycline Hyclate (Vibramycin) 100 mg BID PO 12/26/19 09:00 12/29/19 08:37 Enoxaparin Sodium (Lovenox) 40 mg DAILY SC 12/26/19 09:00 12/29/19 08:37 Glucagon (Glucagon) 1 mg ASDIRECTED PRN SC SEE LABEL COMMENTS 12/26/19 01:00 Glucose (Glucose) 16 GM ASDIRECTED PRN PO SEE LABEL COMMENTS 12/26/19 01:00 Guaifenesin (Mucinex Tab Er) 600 mg BID PRN PO CONGESTION 12/26/19 00:30 12/28/19 17:41 Home Med (Med Rec Complete!) ASDIRECTED XX 12/25/19 21:15 12/25/19 21:13 DC Hydrochlorothiazide (Hydrodiuril) 12.5 mg DAILY PO 12/26/19 09:00 12/29/19 08:37 Insulin Human Lispro (HumaLOG INSULIN) SEE PROTOCOL TABLE AC SC 12/26/19 07:30 12/28/19 17:27 Insulin Human Lispro (HumaLOG INSULIN) SEE PROTOCOL TABLE QHS SC 12/25/19 21:00 Lisinopril (Prinivil) 20 mg DAILY PO 12/26/19 09:00 12/29/19 08:37 Magnesium Hydroxide (Milk Of Magnesia) 30 ml DAILY PRN PO CONSTIPATION 12/26/19 00:30 Pantoprazole Sodium (Protonix) 40 mg BID PO 12/28/19 21:00 12/29/19 08:37 Pantoprazole Sodium (Protonix) 40 mg DAILY PO 12/26/19 09:00 12/28/19 14:26 DC 12/28/19 09:19 Piperacillin Sod/ Tazobactam Sod 4.5 gm/Dextrose 100 ml @ 100 mls/hr Q6H IV 12/26/19 02:00 12/26/19 13:34 DC 12/26/19 09:02 Prednisone (Deltasone) 40 mg DAILY PO 12/26/19 09:00 12/26/19 10:41 DC 12/26/19 09:00 Prednisone (Deltasone) 60 mg DAILY PO 12/27/19 09:00 12/28/19 14:36 DC 12/28/19 09:19 Simvastatin (Zocor) 20 mg QHS PO 12/25/19 21:00 12/28/19 21:05 Sodium Chloride 1,000 ml @ 120 mls/hr Q8H20M IV 12/26/19 00:30 12/26/19 10:47 DC 12/26/19 01:23 Sodium Chloride (Saline Lock Flush) 2 ml ASDIRECTED PRN IV SEE LABEL COMMENTS 12/26/19 11:00 Sodium Chloride (Saline Lock Flush) 2 ml ASDIRECTED PRN IV SEE LABEL COMMENTS 12/28/19 11:15 Sodium Chloride (Saline Lock Flush) 2 ml SLF IV 12/26/19 14:00 12/29/19 13:41 Sodium Chloride (Saline Lock Flush) 2 ml SLF IV 12/28/19 14:00 12/29/19 13:41 Sucralfate (Carafate Suspension) 1 gm BID PO 12/28/19 21:00 12/28/19 14:33 DC Sucralfate (Carafate Suspension) 1 gm QID PO 12/28/19 13:00 12/29/19 13:41 Vancomycin HCl 1000 mg/IV Miscellaneous Supplies 1 each/ Dextrose 270 ml @ 270 mls/hr Q8H IV 12/26/19 04:00 12/26/19 13:34 DC 12/26/19 11:31 Vancomycin HCl 1230 mg/IV Miscellaneous Supplies 24.6 ml @ 24.6 mls/hr Q12H IV 12/26/19 00:30 12/26/19 01:50 DC Allergies Coded Allergies: No Known Allergies (Unverified , 09/17/19) Evon Rodarte MD Dec 29, 2019 15:02
[2019-12-29 16:00] VITALS: BP 136/89
--- NOTE | 2019-12-29 17:40 | REPVR ---
PROCEDURE INFORMATION: Exam: US Abdomen, Limited; Right Upper Quadrant Exam date and time: 12/29/2019 4:39 PM Age: 59 years old Clinical indication: Abdominal pain; Tenderness; Right upper quadrant (ruq); Additional info: Ruq, R/O gb disease, fa HX ? pancreatic CA, positive mendoza TECHNIQUE: Imaging protocol: US abdomen. Real time ultrasound with image documentation. Limited exam focused on the right upper quadrant. COMPARISON: PT PET/CT Skull/mid thigh 11/29/2018 8:59 AM FINDINGS: Liver: Small grouping of cysts right lobe of the liver measuring 1 cm x 5 mm. Additional small 5 mm cyst seen on the margin of the liver. Gallbladder: There is no evidence of gallstones. The gallbladder wall measures less than 2 mm. Common bile duct: The common bile duct is normal in size measuring 5 mm. There is no evidence of intrahepatic biliary dilatation. Pancreas: The pancreas is obscured by bowel gas and cannot be evaluated. Right kidney: Normal appearing right kidney. There are 2 small cyst of the right kidney measuring 8 mm. IMPRESSION: Normal appearing gallbladder and no evidence of biliary dilatation. Electronically signed by: Conner Ramirez On 12/29/2019 17:39:52 PM
[2019-12-29 20:00] VITALS: BP 125/77
[2019-12-29] MEDS: SIMVASTATIN 20 MG TAB PO SCH (21:02)
--- NOTE | 2019-12-29 21:20 | ECGEPIP ---
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
[2019-12-30] VITALS: BP 118/60
[2019-12-30] MEDS: IPRATROPIUM 0.5MG/ALBUTEROL 2.5MG INH SOL UD 3ML (DUONEB) INH SCH ×4 (00:18→11:10)
[2019-12-30 04:00] VITALS: BP 153/85
[2019-12-30] MEDS: SLF 3 ML SYR IV SCH ×3 (06:07→12:43)
[2019-12-30] MEDS: SYMBICORT 80/4.5MCG INHALER 6GM INH SCH (07:14)
[2019-12-30 07:50] VITALS: BP 129/81
[2019-12-30 08:10] LABS: HEMATOCRIT 45.6 % (42.0-52.0); HEMOGLOBIN 14.9 g/dl (13.5-17.5); MEAN CORPUSCULAR HEMOGLOBIN 29.6 pg (27.0-33.0); MEAN CORPUSCULAR HGB CONC 32.7 g/dl (32.0-36.5); MEAN CORPUSCULAR VOLUME 90.7 fl (80.0-96.0); PLATELET COUNT, AUTOMATED 344 10^3/uL (150-450); RED BLOOD COUNT 5.03 10^6/uL (4.30-6.10); WHITE BLOOD COUNT 12.8 10^3/uL (4.0-10.0)
[2019-12-30 08:27] VITALS: BP 153/81
[2019-12-30] MEDS: DOXYCYCLINE HYCLATE 100MG TABLET PO SCH (08:27)
[2019-12-30] MEDS: hydroCHLOROthiazide 12.5 MG CAPSULE PO SCH (08:27)
[2019-12-30] MEDS: PANTOPRAZOLE 40MG TAB (PROTONIX) PO SCH (08:27)
[2019-12-30] MEDS: lisinopriL 20 MG TAB PO SCH (08:27)
[2019-12-30] MEDS: SUCRALFATE SUSP 1GM/10ML UD PO SCH ×2 (08:27→12:42)
[2019-12-30] MEDS: ENOXAPARIN 40MG/0.4ML SYRINGE (J1650 PER 10MG) SC SCH (08:28)
[2019-12-30] MEDS: HumaLOG INSULIN (NovoLOG) PER UNIT SC SCH ×2 (08:36→12:00)
[2019-12-30 08:37] LABS: BLOOD UREA NITROGEN 25 MG/DL (7-18); CALCIUM LEVEL 8.6 MG/DL (8.8-10.2); CARBON DIOXIDE LEVEL 25 MEQ/L (21-32); CHLORIDE LEVEL 108 MEQ/L (98-107); CREATININE FOR GFR 1.28 MG/DL (0.70-1.30); GLOMERULAR FILTRATION RATE > 60.0 (>49); GLUCOSE, FASTING 165 MG/DL (70-100); SODIUM LEVEL 140 MEQ/L (136-145)
[2019-12-30] MEDS: ACETAMINOPHEN TAB 650MG DOSE (2X325MG) PO SCH ×2 (08:46→13:00)
--- NOTE | 2019-12-30 11:19 | IPNPDOC ---
Date Seen The patient was seen on 12/30/19. Progress Note SUBJECTIVE: Intermittent chest discomfort persists at times, not improved with increased dose of sucralfate. Cannot r/o GI cause of intermittent pain, unlikely ever cholelithiasis. Will need reassessment by PT in AM and if ok, possible d/c home with PT or poss ARU. He currently denies nausea, vomiting, chills, fevers, abdominal pain, shortness of breath. OBJECTIVE: PHYSICAL EXAMINATION: VS: PLease see below Constitutional: Awake and alert, no acute distress ENT: Sclera are clear. Mucosa is moist. Respiratory: CTAB. no Rhonchi or rales. No use of accessory muscles. Cardiovascular: RRR S1 and S2 are normal, no murmur Chest: pain on palpation of anterior left chest- mild, worsened with deep breathing still. Gastrointestinal: Abdomen is soft, non distended, mild RUQ abd pain to deep palpation, BS present. Musculoskeletal: No edema Neurologic: No focal neurological deficit. Mental Status: A&O x3, normal affect Skin: Warm, dry LABORATORY DATA: See below. MICROBIOLOGY: BCx NG at 24 hours x 2 sets Sputum GS: GOOD sample, MANY WBCS, fEW GRAM NEGATIVE RODS, fEW GRAM POSITIVE VITOR Sputum Cx: NF Urine strep Ag and Legionella: neg ASSESSMENT: 59-year-old male with past medical history of COPD, HTN, HLD, presents to the emergency department for shortness of breath admitted for PNA and acute on chronic COPD exacerbation. PLAN: #Physical deconditioning 2/2 to acute issues above -PT: benefit from continued rehab -Possible ARU after this inpatient stay -Reassessing in the AM to see if ok home with PT or ARU -C/w PT/OT # Community acquired PNA, sepsis . Recent rhinovirus + - WBC further improved to 12K - Micro above, sputum cx neg - Day 5 ceftriaxone, doxy BID- D/c abx after today - Nebulizer PRN, ATC - Pulmonary assessed this stay #Chest pain likely multifactorial 2/2 to pleurisy 2/2 to rhinovirus vs. costochondritis vs GI cause at times (hiatal hernia, esophageal spasm?) - Improved since 12/26/19 however, still intermittent - Cardiac cause ruled out - C/w ATC tylenol, pain control, tx for PNA above - Pulmonary assessed, to f/u o/p - Recommend referral to GI specialist after discharge to further assess GI cause #RUQ pain -unlikely cholecystitis; however, cannot rule out due to late imaging after treating with IV abx for several days -AST/ALT wnl -GI referral o/p # Acute on chronic COPD exacerbation- resolved # Pulmonary nodules -Following with Dr. Ramirez as o/p. Discussed case with him. They are monitoring with repeat CT's Q6 mo. -Last visit 2 weeks ago. #Hepatic nodules -Seen on prior imaging -AST/ALT wnl -F/u with PCP # HTN -C/w home medications # HLD -C/w statin #Hx of hepatitis -Unknown if treated in past -F/u hepatitis studies # DVT px -Lovenox DISPOSITION: Admitted under inpatient status. Plan is probably ARU when medically appropriate. If after weekend patient is even more improved and doing better, possibly home with PT or o/p PT. . VS, I&O, 24H, Fishbone Vital Signs/I&O Vital Signs Date Time Temp Pulse Resp B/P (MAP) Pulse Ox O2 Delivery O2 Flow Rate FiO2 12/30/19 08:27 153/81 12/30/19 07:50 98.6 84 18 93 12/30/19 04:00 Room Air I&O- Last 24 Hours up to 6 AM 12/30/19 06:00 Intake Total 300 ml Output Total 0 ml Balance 300 ml Laboratory Data 24H LABS Laboratory Tests 2 12/29/19 12:00: Erythrocyte Sedimentation Rate 1, C-Reactive Protein, Quantitative < 0.30 12/29/19 17:13: Bedside Glucose (Misc Panel) 121H 12/29/19 20:57: Bedside Glucose (Misc Panel) 166H 12/30/19 07:27: Bedside Glucose (Misc Panel) 116H 12/30/19 07:56: Nucleated Red Blood Cells % (auto) 0.0, Anion Gap 7L, Glomerular Filtration Rate > 60.0, Calcium Level 8.6L CBC/BMP Laboratory Tests 12/30/19 07:56 Microbiology Microbiology 12/26/19 Gram Stain - Final, Complete 12/26/19 Sputum Culture - Final, Complete 12/26/19 Blood Culture - Preliminary, Resulted No Growth after 72 hours. All specime... 12/26/19 Blood Culture - Preliminary, Resulted No Growth after 72 hours. All specime... 12/25/19 Urine Culture - Final, Complete Current Medications Current Medications Medications (Trade) Dose Ordered Sig/Paul Route PRN Reason Start Time Stop Time Status Last Admin Dose Admin Acetaminophen (Tylenol Tab) 650 mg Q4H PRN PO PAIN OR FEVER 12/26/19 00:30 12/26/19 10:41 DC Acetaminophen (Tylenol Tab) 650 mg QID PO 12/26/19 10:45 12/29/19 21:01 Acetaminophen (Tylenol Tab) 1,000 mg Q6H PRN PO PAIN 12/26/19 00:30 12/26/19 10:46 DC 12/26/19 02:42 Albuterol Sulfate (Proventil, Ventolin Hfa) 2 puff Q4H PRN INH WHEEZING 12/26/19 00:30 Albuterol/ Ipratropium (Duoneb (Ipr 0.5mg/Alb 2.5mg)) 3 ml Q2H PRN INH WHEEZING 12/26/19 00:30 Albuterol/ Ipratropium (Duoneb (Ipr 0.5mg/Alb 2.5mg)) 3 ml RQ4H INH 12/26/19 04:00 12/30/19 11:10 Budesonide/ Formoterol Fumarate (Symbicort 80/ 4.5mcg) 2 puff RBID INH 12/25/19 20:00 12/30/19 07:14 Ceftriaxone Sodium 1 gm/ Dextrose 50 ml @ 100 mls/hr Q24H IV 12/26/19 14:00 12/29/19 13:41 Dextrose (Dextrose 50%) 25 ml ASDIRECTED PRN IV SEE LABEL COMMENTS 12/26/19 01:00 Doxycycline Hyclate (Vibramycin) 100 mg BID PO 12/26/19 09:00 12/30/19 08:27 Enoxaparin Sodium (Lovenox) 40 mg DAILY SC 12/26/19 09:00 12/30/19 08:28 Glucagon (Glucagon) 1 mg ASDIRECTED PRN SC SEE LABEL COMMENTS 12/26/19 01:00 Glucose (Glucose) 16 GM ASDIRECTED PRN PO SEE LABEL COMMENTS 12/26/19 01:00 Guaifenesin (Mucinex Tab Er) 600 mg BID PRN PO CONGESTION 12/26/19 00:30 12/28/19 17:41 Home Med (Med Rec Complete!) ASDIRECTED XX 12/25/19 21:15 12/25/19 21:13 DC Hydrochlorothiazide (Hydrodiuril) 12.5 mg DAILY PO 12/26/19 09:00 12/30/19 08:27 Insulin Human Lispro (HumaLOG INSULIN) SEE PROTOCOL TABLE AC SC 12/26/19 07:30 12/30/19 08:36 Insulin Human Lispro (HumaLOG INSULIN) SEE PROTOCOL TABLE QHS SC 12/25/19 21:00 Lisinopril (Prinivil) 20 mg DAILY PO 12/26/19 09:00 12/30/19 08:27 Magnesium Hydroxide (Milk Of Magnesia) 30 ml DAILY PRN PO CONSTIPATION 12/26/19 00:30 Miscellaneous (Unresolved Clarification Entry) SEE LABEL COMMENTS DAILY XX 12/30/19 09:00 Pantoprazole Sodium (Protonix) 40 mg BID PO 12/28/19 21:00 12/30/19 08:27 Pantoprazole Sodium (Protonix) 40 mg DAILY PO 12/26/19 09:00 12/28/19 14:26 DC 12/28/19 09:19 Piperacillin Sod/ Tazobactam Sod 4.5 gm/Dextrose 100 ml @ 100 mls/hr Q6H IV 12/26/19 02:00 12/26/19 13:34 DC 12/26/19 09:02 Prednisone (Deltasone) 40 mg DAILY PO 12/26/19 09:00 12/26/19 10:41 DC 12/26/19 09:00 Prednisone (Deltasone) 60 mg DAILY PO 12/27/19 09:00 12/28/19 14:36 DC 12/28/19 09:19 Simvastatin (Zocor) 20 mg QHS PO 12/25/19 21:00 12/29/19 21:02 Sodium Chloride 1,000 ml @ 120 mls/hr Q8H20M IV 12/26/19 00:30 12/26/19 10:47 DC 12/26/19 01:23 Sodium Chloride (Saline Lock Flush) 2 ml ASDIRECTED PRN IV SEE LABEL COMMENTS 12/26/19 11:00 Sodium Chloride (Saline Lock Flush) 2 ml ASDIRECTED PRN IV SEE LABEL COMMENTS 12/28/19 11:15 Sodium Chloride (Saline Lock Flush) 2 ml SLF IV 12/26/19 14:00 12/30/19 06:07 Sodium Chloride (Saline Lock Flush) 2 ml SLF IV 12/28/19 14:00 12/30/19 06:07 Sucralfate (Carafate Suspension) 1 gm BID PO 12/28/19 21:00 12/28/19 14:33 DC Sucralfate (Carafate Suspension) 1 gm QID PO 12/28/19 13:00 12/30/19 08:27 Vancomycin HCl 1000 mg/IV Miscellaneous Supplies 1 each/ Dextrose 270 ml @ 270 mls/hr Q8H IV 12/26/19 04:00 12/26/19 13:34 DC 12/26/19 11:31 Vancomycin HCl 1230 mg/IV Miscellaneous Supplies 24.6 ml @ 24.6 mls/hr Q12H IV 12/26/19 00:30 12/26/19 01:50 DC Allergies Coded Allergies: No Known Allergies (Unverified , 09/17/19) Evon Rodarte MD Dec 30, 2019 11:19
[2019-12-30 11:52] VITALS: BP 148/92
[2019-12-30] MEDS ORDERED: SUCR1SS PO (12:48)
--- NOTE | 2019-12-30 12:52 | DS.PDOC ---
Discharge Summary General Date of Admission Dec 26, 2019 at 00:55 Date of Discharge 12/30/19 Attending Physician: Evon Rodarte MD Specialist/Consultants Involve: A Discharge Summary HISTORY OF PRESENT ILLNESS: 59-year-old male with past medical history of COPD, HTN, HLD, presents to the emergency department for shortness of breath. Patient was here yesterday and was sent home for COPD exacerbation and was given a five- day course of prednisone. Patient was following up with his library information technician today in the clinic when he was told to go to the hospital because he was short of breath. Here patient endorses some chills but no fever and the cough with clear sputum. Patient endorses some wheezing and dyspnea on exertion when he walks about 15 steps at home. Patient's respiratory viral panel had tested positive for rhinovirus on December 23. HOSPITAL COURSE: During the patient's hospital stay, his intermittent chest discomfort persisted. He was started on [id number] Tylenol and prednisone early in his hospital course which helped somewhat. He was also continued on his home antireflux medications which didn't seem to make much of a difference. Up was negative with negative troponin and no abnormal findings on ECG. He had some right upper quadr ant tenderness found by pulmonary was consult on this case. Ultrasound of the right upper quadrant was negative for any concerns for cholecystitis. He continued with antibiotics ( ceftriaxone and doxycycline) for community acquired pneumonia, as the cause of his sepsis was highly thought to be bacterial versus viral in etiology. Cultures later came back neg for any acute infection. WBC continued to improve after stopping steroids. Sucralfate was increased to 4 times a day. We could not r/o GI cause of intermittent chest pain, unlikely ever cholelithiasis. Initially PT had assessed patient and found him needing physical therapy and possibly ARU; however, on 12/30/19 he was reassessed and found to be independent without rolling walker. Patient was discharged home with recommendations to follow-up with his primary care provider in 12 weeks and also call his GI physician (Dr. Lux) after the holiday weekend to see if he can come in for further assessment for his chest/abdominal pain. Overall the patient appeared to be much improved from admission. He was stronger and at the time of discharge he denied nausea, vomiting, chills, fevers, abdominal pain, shortness of breath. ROS: neg except mentioned above PAST MEDICAL HISTORY: COPD, HTN, HLD SOCIAL HISTORY: Patient is a smoker patient denies drinking alcohol or using illicit drugs. Lives locally with his . GI- Dr. lux, Pulmonary- Dr. Ramirez FAMILY HISTORY: Noncontributory ALLERGIES: Please see below. DISCHARGE MEDICATIONS: Please see below. PHYSICAL EXAMINATION: VS: Please see below Constitutional: Awake and alert, no acute distress ENT: Sclera are clear. Mucosa is moist. Respiratory: CTAB. no Rhonchi or rales. No use of accessory muscles. Cardiovascular: RRR S1 and S2 are normal, no murmur Chest: pain on palpation of anterior left chest- mild, worsened with deep breathing still. Gastrointestinal: Abdomen is soft, non distended, mild RUQ abd pain to deep palpation, BS present. Musculoskeletal: No edema Neurologic: No focal neurological deficit. Mental Status: A&O x3, normal affect Skin: Warm, dry LABORATORY DATA: See below. MICROBIOLOGY: BCx NG at 24 hours x 2 sets Sputum GS: GOOD sample, MANY WBCS, fEW GRAM NEGATIVE RODS, fEW GRAM POSITIVE VITOR Sputum Cx: NF Urine strep Ag and Legionella: neg ASSESSMENT: 59-year-old male with past medical history of COPD, HTN, HLD, presents to the emergency department for shortness of breath admitted for PNA and acute on chronic COPD exacerbation. PLAN: # Community acquired PNA, sepsis . Recent rhinovirus + - WBC further improved to 12K - Micro above, sputum cx neg - Completed 5 days of ceftriaxone, doxy BID- D/ximena on discharge - Pulmonary assessed this stay #Chest pain likely multifactorial 2/2 to pleurisy 2/2 to rhinovirus vs. costochondritis vs GI cause at times (hiatal hernia, esophageal spasm?) - Improved since 12/26/19 however, still intermittent - Cardiac cause not suspected this stay - C/w tylenol at home - Pulmonary assessed, to f/u o/p - Recommend referral to GI specialist after discharge to further assess GI cause #RUQ pain -unlikely cholecystitis; however, cannot rule out as present earlier due to late imaging after treating with IV abx for several days -AST/ALT wnl -GI referral o/p # Acute on chronic COPD exacerbation- resolved #Physical deconditioning 2/2 to acute issues below -PT: cleared patient today as independent # Pulmonary nodules -Following with Dr. Ramirez as o/p. Discussed case with him. They are monitoring with repeat CT's Q6 mo. -Last visit 2 weeks ago. #Hepatic nodules -Seen on prior imaging -AST/ALT wnl -F/u with PCP # HTN -C/w home medications # HLD -C/w statin #Hx of hepatitis -Unknown if treated in past -PCP to f/u hepatitis studies DISPOSITION: Discharging home today in improved health. Plan is f/u with PCP in 1-2 weeks and patient is to call GI provider and see if he can get in to see him also (Dr. Lux) TIME SPENT ON DISCHARGE: Greater than 30 minutes. Vital Signs/I&Os Vital Signs Date Time Temp Pulse Resp B/P (MAP) Pulse Ox O2 Delivery O2 Flow Rate FiO2 12/30/19 11:52 97.6 79 16 148/92 (110) 96 Room Air I&O- Last 24 Hours up to 6 AM 12/30/19 06:00 Intake Total 300 ml Output Total 0 ml Balance 300 ml Laboratory Data Labs 24H Laboratory Tests 2 12/29/19 17:13: Bedside Glucose (Misc Panel) 121H 12/29/19 20:57: Bedside Glucose (Misc Panel) 166H 12/30/19 07:27: Bedside Glucose (Misc Panel) 116H 12/30/19 07:56: Nucleated Red Blood Cells % (auto) 0.0, Anion Gap 7L, Glomerular Filtration Rate > 60.0, Calcium Level 8.6L 12/30/19 12:09: Bedside Glucose (Misc Panel) 102 CBC/BMP Laboratory Tests 12/30/19 07:56 FSBS Laboratory Tests Test 12/29/19 17:13 12/29/19 20:57 12/30/19 07:27 12/30/19 12:09 Range/Units Bedside Glucose (Misc Panel) 121 166 116 102 80-115 MG/DL Microbiology Microbiology 12/26/19 Gram Stain - Final, Complete 12/26/19 Sputum Culture - Final, Complete 12/26/19 Blood Culture - Preliminary, Resulted No Growth after 72 hours. All specime... 12/26/19 Blood Culture - Preliminary, Resulted No Growth after 72 hours. All specime... 12/25/19 Urine Culture - Final, Complete Discharge Medications Scheduled Fluticasone/Vilanterol (Breo Ellipta 200-25 Mcg INH) 1 Each Blst.w.dev, 1 PUFF INH DAILY, (Reported) Lisinopril/Hydrochlorothiazide (Lisinopril-Hctz 20-12.5 mg Tab) 1 Each Tablet, 1 TAB PO DAILY, (Reported) Metformin HCl (Metformin HCl) 1,000 Mg Tablet, 1,000 MG PO DAILY, (Reported) HAD CONTRAST DYE ON 12/24/19, DID NOT TAKE MORNING DOSE ON 12/25/19 Pantoprazole Sodium (Pantoprazole Sodium) 40 Mg Tablet.dr, 40 MG PO DAILY, (Reported) Simvastatin (Simvastatin) 20 Mg Tablet, 20 MG PO QHS, (Reported) Sucralfate (Carafate) 1 Gm/10 Ml Oral.susp, 10 ML PO QID Umeclidinium [place] (Incruse Ellipta) 62.5 Mcg Blst.w.dev, 1 PUFF INH DAILY, (Reported) Scheduled PRN Acetaminophen (Tylenol Extra Strength) 500 Mg Tablet, 1,000 MG PO Q6H PRN for PAIN, (Reported) Albuterol Sulf (Albuterol Sulfate) 2.5 Mg/3 Ml Vial.neb, 2.5 MG INH Q6H PRN for SHORTNESS OF BREATH, (Reported) Albuterol Sulfate (Proair Hfa) 8.5 Gm Hfa.aer.ad, 2 PUFF INH Q4H PRN for SHORTNESS OF BREATH, (Reported) Guaifenesin (Mucinex) 600 Mg Tab.er.12h, 600 MG PO BID PRN for CONGESTION, (Reported) Allergies Coded Allergies: No Known Allergies (Unverified , 09/17/19) Evon Rodarte MD Dec 30, 2019 12:52
[2019-12-30] MEDS ORDERED: cefTRIAXone SOD 1 GM in D5W MINI-BAG PLUS 50 ML IV ONE (13:00)
--- NOTE | 2019-12-30 13:45 | CR ---
DATE: 12/29/2019 REASON FOR CONSULTATION: I am seeing Mr. Osullivan in consultation as requested by Dr. Rodarte, as the patients requested that I see him as he is a patient of our practice. He is seen for emphysema without recurrent exacerbations. HISTORY OF PRESENT ILLNESS: Mr. Jenkins acute illness began December 16, with feelings of unwellness. He describes feeling weak, having shaking chills, and feeling hot. He does not have any documented fevers. He first went to the urgent care on December 20, and was tested for COVID. Started on prednisone for possible chronic obstructive pulmonary disease (COPD) exacerbation and given an antibiotic. He had no clinical improvement and then, he went to the emergency room on December 23, where he had chest imaging. He had a respiratory culture positive for rhinovirus and was sent home. On the , he presented to the pulmonary office for follow-up because he still was not feeling well. At that point in time, he was tachycardic, tachypenic, weak and was unable to walk his usual, was feeling hot, and was having rigors in the office. He was therefore sent to the emergency room, had another CT scan which is reviewed as outlined below, and admitted to the hospital with a diagnosis community-acquired pneumonia and placed on antibiotics. Overall, the patient states he feels clinically improved since his hospitalization. He has been on multiple different antibiotics, but currently is on ceftriaxone and doxycycline. He states that he gets a tightness squeezing in his chest that is piercing. After he gets this sensation he has tightness and tingling down both hands. The chest discomfort is not positional. It does not get better if he lies down or leans forward. The chest discomfort is described as a sharp pain not as a pressure. It does often occur after eating. He has a history of a hiatal hernia and has difficulty swallowing and often gets food stuck. It will occasionally feel like that discomfort. He also has a pleuritic component at times where it hurts to take a deep breath in. He found no relief with the steroids that he has been on so those have been stopped yesterday in case this was causing gastritis, and he was also placed on Sucralfate. He had two loose bowel movements yesterday, but no pacheco diarrhea. He has a headache, which usually occurs with these symptoms, but he has had no change in vision. He does have photosensitivity, but no symptoms of iritis or uveitis. He has had the pain on average when at home, it usually lasts 5-10 minutes. In the hospital; however, his numbness and tingling of his extremities has been lasting one to two hours. He has had a cardiac workup as outlined below. He has had no neck injuries and denies neck pain. He has no neck stiffness. He denies any back pain. He continues to have shaking chills at times. I am not observing rigors anymore, but he describes shaking chills that continue intermittently throughout his hospital stay. He has had no weight loss. He does have nasal and sinus congestion, which is chronic, but nothing new. 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 He does state it hurts to swallow, but he does not have any throat pain. It hurts when he is swallowing he points to the upper portion of his sternum. He states when he was at home prior to admission, he would wake up in the morning feeling okay; but about 1 to 2 p.m., he would have extreme fatigue. He runs a fan at night, not clear if it is to help him breathe, but he has no true symptoms of paroxysmal nocturnal dyspnea or orthopnea. He has no lower extremity edema. He has no history of thromboembolic disease and denies any calf pain. He denies any unilateral weakness. He has no history of tuberculosis or tuberculosis exposures. He denies any known cardiac history. He has no cough. No productive cough and no posterior thoracic chest pain. He is not a smoker despite what his H&P says, he quit smoking a year ago. PAST MEDICAL HISTORY: 1. Emphysema. 2. Hypertension. 3. Hypercholesterolemia. 4. History of hepatitis as a child, he does not know what type. 5. History of nicotine dependence. 6. Hiatal hernia. 7. History of gastritis. 8. Diabetes. CURRENT MEDICATION LIST: * Milk of magnesia. * Lovenox 40 mg subcutaneously daily. * Albuterol q. 4 hours p.r.n. in the form of Ventolin. * DuoNebs q. 4 hours scheduled. * DuoNebs q. 2 hours p.r.n. * Guaifenesin 600 mg p.o. b.i.d. * Simvastatin 20 mg p.o. at bedtime. * Lisinopril 20 mg p.o. daily. * Hydrochlorothiazide 12.5 mg p.o. daily. * Symbicort two puffs inhaled b.i.d. * Sliding scale insulin. * Tylenol 650 mg p.o. four times daily; last dose was 8 o'clock this morning. * Ceftriaxone. * Doxycycline. * Protonix 40 mg p.o. b.i.d. * Sucralfate 1 gram four times daily. ALLERGIES: No known drug allergies. HOME MEDICATIONS: * Acetaminophen. * Albuterol nebs. * BREO one inhalation daily. * Mucinex. * Lisinopril/hydrochlorothiazide 20/12.5. * Metformin 1000 mg p.o. daily. * Protonix 40 mg p.o. daily. * Prednisone 40 mg p.o. daily for the past five days. * Simvastatin 20 mg p.o. at bedtime. * Sucralfate 1 gram p.o. b.i.d. * Incruse one inhalation daily. SOCIAL HISTORY: Patient quit smoking one year ago. Estimated 40-pack year history. He denies any illicit drug use. No alcohol use. Lives with his . 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 Infectious exposures as mentioned above. FAMILY HISTORY: Mother had hepatitis and from hepatitis. He states he was infected at the same time she was when he was younger. He denies any recent hepatitis screening. I suspect this was hepatitis A. Father with colon cancer. Two sisters with breast cancer. One of the sisters also reportedly with stomach cancer. He has another sibling, a brother, with a rare cancer. He describes it as a GI malignancy that is adjacent to the pancreas, but truly not a pancreatic cancer, but wrapped around some vessels. REVIEW OF SYSTEMS: GENERAL: No weight loss. Intermittent fevers without documented temperatures. Positive for rigors and shaking chills. No night sweats. HEENT: He does have photosensitivity without change in vision. No epistaxis. Positive nasal congestion and sinus congestion. No odynophagia, but does have lower esophageal dysphagia. No oropharyngeal dysphagia. Denies ear pain or change in hearing. He has dentures. CARDIAC: Atypical chest pain as described above. No orthopnea, PND, or positional chest discomfort. No symptoms of claudication. No palpitations. PULMONARY: No TB or TB exposures. No prior incarcerations. Otherwise, as mentioned in the HPI. No hemoptysis. GASTROINTESTINAL: No nausea or vomiting, but definitely has discomfort with swallowing certain foods even liquids at times. Describes having a hiatal hernia and is on Sucralfate for what I suspect is gastritis. He does have symptoms after eating, which reproduces some of his chest discomfort. He has had no constipation. No blood in his stool. Two loose bowel movements as mentioned above. GENITOURINARY: No pain or burning with urination. No hematuria. NEUROLOGIC: He has a headache that he describes as being on the top of his head. He has no temporal discomfort. No occipital discomfort. He has no history of seizures. No unilateral weakness. No recent trauma to the head or neck. He does describe bilateral tingling in his hands that is intermittent, but can last for hours. MUSCULOSKELETAL: No joint effusion. No recent fractures. No known muscle atrophy. ENDOCRINE: Has been on metformin suspect for diabetes. No increased urination or hot or cold intolerance. No history of thyroid disease. SLEEP: He has been known to snore, but does have witnessed apneas and awakes feeling fairly well rested. PSYCHIATRIC: He is feeling a little depressed based on his clinical situation, but has no suicidal. No significant anxiety. INTEGUMENTARY: No rashes, jaundice, or bruising. INFECTIOUS DISEASE: As mentioned above no tuberculosis. No history of recurrent infection. No history of immunodeficiency. PHYSICAL EXAMINATION: VITAL SIGNS: Temperature 98.3, pulse 73, respiratory rate 16, blood pressure 137/94 with a mean arterial pressure of 108. Oxygen saturation is 95% on room air. GENERAL: Patient is sitting in bed. Speech is clear, nontangential. He is able to complete sentences without shortness of breath. HEENT: Sclerae are clear, but he is quite photosensitive to light. Pupils are approximately 4 mm and definitely reactive to light. They are symmetric. Oral mucosa is pink and most without lesions. Uvula is normal. Soft tissue behind the dentures is normal. Posterior pharynx is normal with minimal cobblestoning. No evidence of exudate or erythema of the oropharynx. Tongue is midline without lesions. NECK: Supple. No tracheal deviation or mass. There is no thyromegaly. There is no elevated jugular venous pressure (JVP). Posterior neck there is no significant discomfort to palpation. T7 through T1 is rotated left side than right. LYMPHATIC: No cervical, supraclavicular, or axillary adenopathy. CARDIAC: Slightly shifted heart sounds to the left without murmur, rub, or gallop. No elevated jugular venous pressure (JVP). No systemic edema. PULMONARY: Decreased breath sounds throughout without rales, rhonchi, or wheezes. There is no dullness to percussion. No accessory muscle use. ABDOMEN: Slightly scaphoid. There is significant tenderness to palpation in the right upper quadrant with exacerbation of that pain with inhalation suggesting a positive Stirling sign. There is a nonreducible umbilical hernia. There is no evidence of hepatomegaly or splenomegaly based on percussion. Percussion is tympanic. There is no evidence of ascites. There is no pain in the left upper quadrant or lower quadrant. EXTREMITIES: Without cyanosis, clubbing, or edema. Some osteoarthritic changes. No joint effusion. MUSCULOSKELETAL: Fairly normal muscle tone for stated age. No evidence of significant muscle wasting. NEUROLOGIC: No unilateral weakness. Cranial nerves 2 through 12 are intact. There is no tremor. There is no asterixis. There is no myoclonus and strength is 4/5 upper and lower extremities. LABORATORY EVALUATION: Shows a sodium of 139, potassium is 3.9, chloride is 108, bicarb of 27, BUN of 24 with a creatinine of 1.15, glucose is 106. White blood cell count is 14.1, hemoglobin 13.7, hematocrit 42.3, platelets 347,000. EKG from December 24, shows no signs of pericarditis. No ST elevation or LA depression. Two blood cultures that were obtained were no growth after 72 hours. Sputum culture showed normal geronimo. Urine culture showed no growth. The viral panel from December 23 was positive for human rhinovirus/enterovirus. IMAGING: CT angiogram was performed on December 24. Prior chest CT was performed December 23. There is no evidence of a pulmonary embolism with adequate opacification of the pulmonary arteries. There is extensive emphysema throughout both lung marie with apical predominance. There is bibasilar scarring and atelectasis without evidence of infiltrate. There are calcified nodules. There is a very small pericardial effusion with what appears to be probable enlarged right atrium and enlarged right ventricle suggesting at least [id number] pulmonary hypertension. IMPRESSION/PLAN: 1. Chest pain/Abdominal pain with possible radiation to the chest. The patient has a positive Stirling sign. It is quite clear that the right upper quadrant on exam is the most sensitive area. Therefore, I think it is necessary to rule out gallbladder disease. This may or may not be related to his chest discomfort, but some of his chest discomfort, especially the pleuritic component does seem to be related to diaphragmatic irrigation. It would also explain his intermittent fevers and intermittent rigors and the fact that he is getting better on antibiotics despite having only viral panel positive if he were to have a cholecystitis. Therefore, I have ordered a right upper quadrant ultrasound. Liver function testing has shown that there is a normal total bilirubin, normal AST, ALT, and alkaline phosphatase. He clinically is improving; therefore, this also could have potentially been a slight pericarditis. There is a new pericardial effusion on his chest CT and it is well known that rhinovirus can cause pericarditis. There are no EKG changes suggesting significant pericarditis and there are no signs of tamponade on exam. 2. As far as his tingling in his arms, I am concerned that there could be a neck lesion. He may have stenosis or nerve root compression. This would be rare for it to be bilateral. This may require outpatient or inpatient imaging if possible. These symptoms, however, are not new with his new fever and shaking chills. These have been going on for some time, but they are just worse. They also may be a result of hyperventilation after pain; however, I would rule out more worrisome causes first. 3. Leukocytosis. Differential remains wide at this point in time. Possibly from rhinovirus, possibly from steroid use, or possibly from now partially treated acute cholecystitis. Because he is having multiple different symptoms and he does have some photosensitivity and some pericardial fluid, I will check an ESR, CRP, and if these are elevated, will consider possible workup for rheumatologic disease. 4. History of hepatitis. Will screen for hepatitis B or C. He states he has never been screened for this. Overall, I believe it is likely one of two things a viral pleural pericarditis or a referred pain from the right upper quadrant. In any event, he will need chronic follow-up as an outpatient especially for his gastrointestinal (GI) disease, difficulty swallowing with his hiatal hernia, and possible further workup for his numbness in his upper extremities. If you have any further questions or concerns, please feel to call. RASHARD
--- NOTE | 2019-12-30 13:55 | IPN ---
PULMONARY PROGRESS NOTE DATE: 12/30/2019 SUBJECTIVE: Mr. Osullivan feels better today. He states the right upper quadrant ultrasound was very painful, it reproduced the discomfort in his chest. Despite that, there were no findings of cholecystitis or gallstones. The patient feels better today, does want to go home. He has had no fevers overnight. The I's and Os are incorrect in the chart because he did receive a 500 mL bolus yesterday. He has had an ESR and CRP both of which are very low, suggesting no active inflammation or infection. White count is coming down, likely from previous steroid use. He has no cough. He does have intermittent non-anginal chest discomfort that will likely need to be worked up as an outpatient, most likely by a GI specialist. At this point in time, he has no indication for his chest pain to remain in the hospital. I do no think he requires any further antibiotic therapy. The patient has had some weakness. He is working with physical therapy until he is deemed safe to go home and is able to demonstrate that he is able to ambulate well and safely. He remains in the hospital. PHYSICAL EXAMINATION: VITALS: Temperature 98.6, pulse 84, respiratory rate 18, blood pressure 129/81 with a mean arterial pressure 97, oxygen saturation 93 to 98% on room air. GENERAL: Patient is awake, alert and oriented. Affect and mood are appropriate. Nutrition, hygiene are good. HEENT: Nasal mucosa pink, moist without lesions. Oropharynx without erythema or exudate. Tongue midline. NECK: Supple. No tracheal deviation or mass. LYMPHATICS: No cervical, supraclavicular, or axillary adenopathy. CARDIAC: Regular S1, S2 without audible murmur, rub, or gallop. No elevated JVP. No peripheral edema. PULMONARY: Decreased breath sounds throughout, without rales, rhonchi or wheezes. No dullness to percussion. ABDOMEN: Continues to be tender in the right upper quadrant. There is a non- reducible umbilical hernia. Tympanic, no evidence of ascites. EXTREMITIES: No cyanosis, clubbing, or edema. LABORATORY DATA: Sodium 140, potassium 4.0, chloride 108, bicarb 25, BUN 25, creatinine 1.28 with glucose 165. Calcium 8.6. White blood cell count down to 12.8, hemoglobin 14.9, platelets 344,000 with an ESR 1 and CRP of less than 0.03. IMAGING STUDIES: Right upper quadrant sono as mentioned above, which was unremarkable except for some liver and renal cysts. It did not show the pancreas, however, patient had a normal amylase level earlier in the hospitalization. IMPRESSION: 1. Abdominal/chest pain: Likely GI related. Reminded the patient to use Sucralfate at least four times a day. Will remain on Protonix. Will require outpatient follow-up for this discomfort. I believe all active infection has been ruled out. ESR/CRP is low. White count is coming down now that he is steroids. At this point, there are no active signs of infection. Therefore, would discontinue all antibiotic therapy. I believe most likely his initial symptoms of fever, tachycardia, tachypnea may have been provoked by the rhinovirus. There is a small pericardial effusion, however if he had pericarditis, one would expect his ESR/CRP to be elevated. He has no EKG changes from pericarditis and no evidence of elevated troponin. 2. Emphysema: Currently on Symbicort, would return to his usual inhaled therapy as an outpatient. RASHARD
[2019-12-30] MEDS ORDERED: DOXYCYCLINE HYCLATE 100MG TABLET PO ONE (15:00)
[2019-12-31 09:21] LABS: HEPATITIS B SURFACE ANTIBODY NEGATIVE (POSITIVE)
[2019-12-31 09:32] LABS: HEPATITIS B SURFACE ANTIGEN NEGATIVE (NEGATIVE)
[2019-12-31 10:00] LABS: HEPATITIS C VIRUS ABY INDEX 0.1 INDEX (<0.8)
[2019-12-31 10:01] LABS: HEPATITIS B CORE ANTIBODY IGM NEGATIVE (NEGATIVE)
== END 2019-12-30 14:59 | disposition home or self-care (01) | DRG 140 ==
LOC: M ED 16:35 → EDBD 16:35 → M ED INP 12-26 00:55 → ENRESERV 12-26 02:30 → M PCU 12-26 04:39
PROVIDERS: ADMIT Family Medicine; ATTEND Internal Medicine
DX: J44.1 Chronic obstructive pulmonary disease with (acute) exacerbation (principal); I10 Essential (primary) hypertension; F17.200 Nicotine dependence, unspecified, uncomplicated; R91.8 Other nonspecific abnormal finding of lung field; Z79.899 Other long term (current) drug therapy; E11.9 Type 2 diabetes mellitus without complications; K44.9 Diaphragmatic hernia without obstruction or gangrene; R07.9 Chest pain, unspecified

== ENCOUNTER → 2020-01-02 | Outpatient (CLI) | payer OTHER ==
[~2020-01-02] MED LIST changes: +ACET-897 PO; +ALBU83IN INH; +METF-877 PO; +MUCI600T31 PO; +SIMV20TA22 PO; +SUCR1SS PO
[2020-01-02 14:53] LABS: BASO # 0.1 10^3/uL (0.0-0.2); BASO % 0.6 % (0.0-1.0); EOS # 0.1 10^3/uL (0.0-0.5); EOS % 0.9 % (0.0-3.0); HEMATOCRIT 45.4 % (42.0-52.0); HEMOGLOBIN 14.9 g/dl (13.5-17.5); LYMPH # 1.5 10^3/uL (1.5-5.0); LYMPH % 14.2 % (24.0-44.0); MEAN CORPUSCULAR HEMOGLOBIN 28.8 pg (27.0-33.0); MEAN CORPUSCULAR HGB CONC 32.8 g/dl (32.0-36.5); MEAN CORPUSCULAR VOLUME 87.6 fl (80.0-96.0); MONO % 9.6 % (0.0-5.0); NEUTROPHILS # 7.8 10^3/uL (1.5-8.5); NEUTROPHILS % 73.8 % (36.0-66.0); PLATELET COUNT, AUTOMATED 308 10^3/uL (150-450); RED BLOOD COUNT 5.18 10^6/uL (4.30-6.10); WHITE BLOOD COUNT 10.6 10^3/uL (4.0-10.0)
[2020-01-02 15:16] LABS: ALBUMIN 3.3 GM/DL (3.2-5.2); BILIRUBIN,DIRECT 0.1 MG/DL (0.0-0.2); BILIRUBIN,TOTAL 0.3 MG/DL (0.2-1.0); CALCIUM LEVEL 8.8 MG/DL (8.8-10.2); CREATININE FOR GFR 1.36 MG/DL (0.70-1.30); GLOMERULAR FILTRATION RATE 56.7 (>49); POTASSIUM SERUM 4.1 MEQ/L (3.5-5.1); TOTAL PROTEIN 6.2 GM/DL (6.4-8.2)
== END ==
LOC: M LAB 13:35
PROVIDERS: ATTEND Internal Medicine Gastroenterology
DX: R10.30 Lower abdominal pain, unspecified (principal)

== ENCOUNTER → 2020-01-04 | Outpatient (REF) | payer OTHER ==
[2020-01-15 13:11] LABS: FATS NEUTRAL Normal (.); FATS TOTAL Normal (.); PANCREATIC ELASTASE STOOL >500 (>200)
== END ==
LOC: M LAB REF 09:19
PROVIDERS: ATTEND Internal Medicine Gastroenterology
DX: R10.30 Lower abdominal pain, unspecified (principal)

== ENCOUNTER → 2020-04-04 | Outpatient (CLI) | payer MEDICARE, OTHER ==
[~2020-04-04] MED LIST changes: +PROHANCE 279.3MG/ML 15ML VIAL As Ordered ONE; +PROHANCE 279.3MG/ML 5ML VIAL As Ordered ONE
--- NOTE | 2020-04-04 15:33 | REP ---
INDICATION: NAUSEA. COMPARISON: CT 12/25/2019. TECHNIQUE: Multiple sequences obtained in the axial coronal planes prior to and following the intravenous administration of 16 mL ProHance. FINDINGS: There is a moderate-sized hiatal hernia present. No adenopathy or free fluid is seen in the abdomen. The gallbladder demonstrates no filling defect or wall thickening. There is no evidence of biliary dilatation. There are multiple tiny subcentimeter cysts in the liver with no suspicious enhancing liver mass. The spleen is normal in size with no intrinsic abnormality. No adrenal mass is seen. There is no evidence of a pancreatic mass and no evidence of pancreatic duct dilatation. There are several subcentimeter benign, nonenhancing cysts scattered throughout the right kidney. Several benign cysts are also seen of the left kidney which do not significantly enhance. The largest is hyperintense on T1 and T2 weighted images consistent with hemorrhagic or proteinaceous content. This measures approximately 2.8 cm in diameter and is located in the lateral lower pole. There is a smaller adjacent simple cyst. Little more superiorly there is are two there are few other subcentimeter cysts both superiorly and inferiorly. There is no hydronephrosis. 1 cm hemorrhagic cysts. IMPRESSION: Moderate hiatal hernia. Subcentimeter cysts in the liver. Benign bilateral renal cysts as discussed in detail above. <Electronically signed by Judah Lee > 04/04/20 [id number]
== END ==
LOC: M RAD 12:55
PROVIDERS: ATTEND Internal Medicine Gastroenterology
DX: R11.0 Nausea (principal); K44.9 Diaphragmatic hernia without obstruction or gangrene; N28.1 Cyst of kidney, acquired; K76.89 Other specified diseases of liver
CPT/HCPCS: 74183; A9576

== ENCOUNTER → 2020-05-15 | Outpatient (CLI) | payer OTHER ==
[~2020-05-15] MED LIST changes: +ISOVUE-370 76% 100ML VIAL As Ordered ONE; -PROHANCE 279.3MG/ML 15ML VIAL As Ordered ONE; -PROHANCE 279.3MG/ML 5ML VIAL As Ordered ONE
--- NOTE | 2020-05-15 14:20 | REP ---
INDICATION: CHRONIC OBSTRUCTIVE PULMONARY DISEASE, UNSPECIFIED. COMPARISON: Portable chest and CT angio: 12/25/2019 TECHNIQUE: Bolus of Isovue 370 scanning through the chest with coronal and sagittal reconstructions provided. FINDINGS: Lungs are again hyperinflated with the emphysematous changes mid and upper lung zones. There are apical bullae bilaterally. There is a stable linear nodular focus about a cm in the right upper lobe on image 26. This stable 4 mm nodule on image 48 in the left upper lobe. These are unchanged. See no other lung nodules there is curvilinear fibro atelectatic change in the inferior lingular segment the left upper lobe adjacent the left heart border and in the medial segment of the right middle lobe. The dependent atelectasis and patchy consolidation from the previous study is resolved with small curvilinear fibrotic changes in the right lower lobe along with some bullous emphysematous changes now present. There is a calcified granuloma abutting the major fissure in the left upper lobe on image 73. Image 53 shows a right upper lobe calcified granuloma subpleural region also stable no pleural effusion, pleural based mass no pneumothorax. Heart is not enlarged. There is no pericardial thickening or effusion. Moderate sized hiatal hernia. The aorta has atherosclerotic calcifications at the arch and descending portion without aneurysm. The main, right and left pulmonary arteries in the mediastinum are without filling defects. Proximal lobar arteries are also without filling defects or vessel cut off. No mediastinal or hilar pathologic adenopathy. There are some calcified granulomatous nodes in the right paratracheal and AP window regions. There is no axillary or supraclavicular mass. In the upper abdomen few peripheral low-density areas seen in the liver and unchanged. Spleen is not enlarged and shows no focal lesion. There is no ascites. No biliary dilatation is evident. The gallbladder without calcified stone or mass. The pancreas unremarkable. There are atherosclerotic calcifications of the aorta without aneurysm. Adrenal glands are normal. Hypodense renal cyst laterally in the left kidney upper pole and 2 smaller exophytic cysts posteriorly in the interpolar lower pole junction. Right kidney portion visible without focal abnormality. No periaortic, other retroperitoneal or mesenteric pathologic sized lymphadenopathy. The bone windows show sternum, manubrium, clavicles, AC joints, scapulae, portions of humeral heads included, the visualized ribs and thoracic spine without any acute finding. IMPRESSION: 1. Improvement of the posterior lower lobe areas of atelectasis or infiltrate from the previous study there is some residual bullous emphysematous change in the right lower lobe in this region and curvilinear scar. 2. Areas of the curvilinear fibroatelectatic change inferior lingula and lateral segment of the right middle lobe are all stable. COPD with bullous emphysematous changes. 3. Stable 1 cm nodule right upper lobe and a 4 mm nodule left upper lobe without calcification. Calcified granulomas are seen elsewhere in the lungs and unchanged. 4. No mediastinal, hilar, axillary or supraclavicular pathologic sized adenopathy. Some of the mediastinal nodes have calcification. 5. Few small hypodensities in the liver peripherally suggesting small cysts, stable. Moderate-sized hiatal hernia. No other significant or acute finding. <Electronically signed by Owen Esparza > 05/15/20 [id number]
== END ==
LOC: M RAD 12:36
PROVIDERS: ATTEND Internal Medicine Pulmonary Disease
DX: J44.9 Chronic obstructive pulmonary disease, unspecified (principal); R91.8 Other nonspecific abnormal finding of lung field; K76.89 Other specified diseases of liver; K44.9 Diaphragmatic hernia without obstruction or gangrene; J98.11 Atelectasis; I70.0 Atherosclerosis of aorta; N28.1 Cyst of kidney, acquired
CPT/HCPCS: 71260; Q9967

== ENCOUNTER 2020-06-22 18:26 | Emergency (ER) | payer OTHER ==
[~2020-06-22] VITALS: Ht 177.8 cm; Wt 81.8 kg
[~2020-06-22 18:26] MED LIST changes: -ISOVUE-370 76% 100ML VIAL As Ordered ONE
[2020-06-22 18:53] LABS: VENOUS BASE EXCESS 0.2 (-2.0-2.0); VENOUS HCO3 21.3 MEQ/L (23.0-27.0); VENOUS O2 SATURATION 98.5 % (60.0-80.0); VENOUS PH 7.532 UNITS (7.330-7.430); VENOUS STANDARD HCO3 24.7 MEQ/L; VENOUS TOTAL CO2 22.1 MEQ/L (24.0-28.0)
[2020-06-22 19:00] LABS: BASO % 0.3 % (0.0-1.0); EOS % 0.3 % (0.0-3.0); HEMATOCRIT 43.6 % (42.0-52.0); HEMOGLOBIN 14.4 g/dl (13.5-17.5); LYMPH % 7.3 % (24.0-44.0); MEAN CORPUSCULAR HEMOGLOBIN 28.8 pg (27.0-33.0); MEAN CORPUSCULAR VOLUME 87.2 fl (80.0-96.0); MONO # 0.8 10^3/uL (0.0-0.8); MONO % 5.8 % (2.0-8.0); NEUTROPHILS # 11.8 10^3/uL (1.5-8.5); PLATELET COUNT, AUTOMATED 322 10^3/uL (150-450); WHITE BLOOD COUNT 13.9 10^3/uL (4.0-10.0)
[2020-06-22] MEDS ORDERED: ACETAMINOPHEN 325 MG TAB PO ONE (19:00)
--- NOTE | 2020-06-22 19:02 | REP ---
INDICATION: DYSPNEA/COUGH. COMPARISON: Portable chest dated 12/25/2019. TECHNIQUE: Portable AP chest with the patient upright.. FINDINGS: The lung marie are clear except for small stable nodular densities. Cardiac size is normal. The yanira, mediastinum and skeletal structures are unremarkable. IMPRESSION: Essentially negative portable chest <Electronically signed by Judah Marie > 06/22/20 [id number]
[2020-06-22] MEDS ORDERED: COMBIVENT RESPIMAT 100-20MCG INHALER 4GM INH SCH (19:25)
--- NOTE | 2020-06-22 19:32 | ECGEPIP ---
[facility] - ED Test Date: 2020-06-22 Pat Name: ASTER URIAS Department: Room: - Gender: Male [employer]: BILLIE : 1960 Requested By: LUZ BLACK Order Number: [id number] Reading MD: Ninfa Britt Measurements Intervals [place] Rate: 88 P: 65 WV: 114 QRS: 61 QRSD: 76 T: 63 QT: 364 QTc: 440 Interpretive Statements Normal sinus rhythm Nonspecific ST T wave changes Delayed R wave progression cw 12/28/[address] T wave changes Electronically Signed on 06-22-2020 19:32:49 EDT by Ninfa Britt
[2020-06-22 19:37] LABS: RSV AMPLIFICATION NEGATIVE (NEGATIVE)
[2020-06-22 19:40] LABS: ALBUMIN 3.3 GM/DL (3.2-5.2); ALT/SGPT 31 U/L (12-78); BILIRUBIN,DIRECT 0.1 MG/DL (0.0-0.2); BILIRUBIN,TOTAL 0.3 MG/DL (0.2-1.0); CK-MB VALUE MASS 1.6 NG/ML (<3.6); CPK CREATINE PHOSPHOKINASE 62 U/L (39-308); MB/CK RELATIVE INDEX 2.58 (< OR =4); NT-PRO BNP 22 PG/ML (<125); THYROID STIMULATING HORMONE 0.665 uIU/ML (0.358-3.740); THYROXINE (T4) 9.6 UG/DL (4.5-12.0); TOTAL PROTEIN 5.9 GM/DL (6.4-8.2); TROPONIN I < 0.02 NG/ML (< 0.10)
[2020-06-22 19:50] LABS: BLOOD UREA NITROGEN 23 MG/DL (7-18); CALCIUM LEVEL 8.4 MG/DL (8.8-10.2); CARBON DIOXIDE LEVEL 23 MEQ/L (21-32); CHLORIDE LEVEL 100 MEQ/L (98-107); CREATININE FOR GFR 1.19 MG/DL (0.70-1.30); GLOMERULAR FILTRATION RATE > 60.0 (>49); GLUCOSE, FASTING 135 MG/DL (70-100); POTASSIUM SERUM 4.1 MEQ/L (3.5-5.1); SODIUM LEVEL 133 MEQ/L (136-145)
[2020-06-22] MEDS ORDERED: MOXIFLOXACIN 400 MG TAB PO ONE (20:40)
[2020-06-22] MEDS ORDERED: MOXI1TAB PO (20:42)
[2020-06-22 21:00] VITALS: BP 115/67
== END 2020-06-22 20:14 | disposition home or self-care (01) ==
LOC: M ED 18:26
DX: J20.9 Acute bronchitis, unspecified (principal); R06.02 Shortness of breath; I50.9 Heart failure, unspecified; E11.9 Type 2 diabetes mellitus without complications; I10 Essential (primary) hypertension; J44.9 Chronic obstructive pulmonary disease, unspecified; Z87.891 Personal history of nicotine dependence; Z79.899 Other long term (current) drug therapy

== ENCOUNTER 2020-06-26 11:40 | Inpatient (IN) | payer OTHER ==
[~2020-06-26] VITALS: Ht 182.9 cm; Wt 74.6 kg
[~2020-06-26 11:40] MED LIST changes: +MOXI1TAB PO
[2020-06-26] MEDS ORDERED: oxyCODONE 5MG TAB PO ONE (11:55)
[2020-06-26] MEDS ORDERED: ONDANSETRON 4MG/2ML VIAL IV ONE (12:05)
--- NOTE | 2020-06-26 12:15 | REP ---
INDICATION: CHEST PAIN. COMPARISON: Portable chest dated 12/25/2019 and portable chest dated 06/22/2020. TECHNIQUE: Portable AP chest with the patient upright. FINDINGS: There is focal increased density in the right cardio phrenic angle as an interval change suggestive of a right middle lobe infiltrate or collapse versus artifact from a portable technique. The remainder of the lung marie are clear. Cardiac size normal. The yanira, mediastinum, and skeletal structures are unremarkable. IMPRESSION: Focal increased density in the right cardio phrenic angle as an interval change. This could be artifact from portable technique or could represent right middle lobe infiltrate/collapse. Consider CT for further evaluation. <Electronically signed by Judah Marie > 06/26/20 [id number]
[2020-06-26] MEDS: MORPHINE 4 MG/ML 1ML VIAL/SYRINGE (J2270) IV PRN ×2 (12:45→16:00)
[2020-06-26 12:47] LABS: BASO % 0.1 % (0.0-1.0); HEMATOCRIT 44.5 % (42.0-52.0); LYMPH # 0.7 10^3/uL (1.5-5.0); LYMPH % 4.8 % (24.0-44.0); MEAN CORPUSCULAR HGB CONC 33.7 g/dl (32.0-36.5); MEAN CORPUSCULAR VOLUME 85.9 fl (80.0-96.0); MONO # 0.3 10^3/uL (0.0-0.8); MONO % 2.1 % (2.0-8.0); NEUTROPHILS # 13.9 10^3/uL (1.5-8.5); NEUTROPHILS % 92.5 % (36.0-66.0); PLATELET COUNT, AUTOMATED 369 10^3/uL (150-450); RED BLOOD COUNT 5.18 10^6/uL (4.30-6.10); WHITE BLOOD COUNT 15.1 10^3/uL (4.0-10.0)
[2020-06-26] MEDS ORDERED: LEVO500T3 PO (12:49)
[2020-06-26] MEDS ORDERED: PRED10TA2 PO (12:49)
[2020-06-26 12:57] LABS: INR 0.98; PROTHROMBIN TIME 13.2 SECONDS (12.5-14.3)
[2020-06-26] MEDS ORDERED: ISOVUE-370 76% 100ML VIAL As Ordered ONE (13:01)
[2020-06-26 13:10] LABS: ERYTHROCYTE SEDIMENTATION RATE 3 mm/hr (0-20)
[2020-06-26 13:18] LABS: ALBUMIN 3.7 GM/DL (3.2-5.2); ALT/SGPT 46 U/L (12-78); BILIRUBIN,DIRECT 0.1 MG/DL (0.0-0.2); BILIRUBIN,TOTAL 0.4 MG/DL (0.2-1.0); C REACTIVE PROTEIN QUANTITATIV 0.61 MG/DL (0.00-0.30); CK-MB VALUE MASS 1.7 NG/ML (<3.6); CPK CREATINE PHOSPHOKINASE 51 U/L (39-308); LIPASE 82 U/L (73-393); MB/CK RELATIVE INDEX 3.33 (< OR =4); NT-PRO BNP 41 PG/ML (<125); THYROID STIMULATING HORMONE 0.415 uIU/ML (0.358-3.740); TOTAL PROTEIN 6.8 GM/DL (6.4-8.2); TROPONIN I < 0.02 NG/ML (< 0.10)
--- NOTE | 2020-06-26 13:32 | REP ---
INDICATION: sob/cp. COMPARISON: Chest CT with IV contrast dated 05/15/2020. TECHNIQUE: Chest CT with IV contrast, CT angiography. FINDINGS: There are no emboli in the pulmonary trunk or central pulmonary arteries. There are no emboli in the pulmonary artery lobar segment branches. There are bands of atelectasis/scarring in the right lower lobe, right middle lobe and lingula, unchanged. Extensive bolus replacement of the lung parenchyma is again identified, unchanged. There is a small calcified granuloma in the anterior segment of the left lower lobe, unchanged. There are no new infiltrates or pleural effusions. There is no mediastinal, hilar or axillary lymphadenopathy. Thoracic aorta is unremarkable. Cardiac size is normal. Visualized upper abdominal contents are unremarkable. Small hiatal hernia is again noted. IMPRESSION: There are no pulmonary emboli. There are no acute infiltrates or pleural effusions. There are chronic stable changes as described consisting of extensive bolus replacement of the lung parenchyma and focal zones of chronic atelectasis/scarring. Occasional calcified granulomas are again noted. There is no adenopathy or mass. <Electronically signed by Judah Marie > 06/26/20 [id number]
[2020-06-26] MEDS ORDERED: KETOROLAC 30 MG/ML 1ML VIAL IV ONE (14:05)
[2020-06-26] MEDS ORDERED: GABA-1171 PO (15:33)
[2020-06-26] MEDS ORDERED: FAMO20TA PO (15:33)
[2020-06-26] MEDS ORDERED: MOM 30ML SUSPENSION UDC PO PRN (15:40)
[2020-06-26] MEDS ORDERED: ACETAMINOPHEN TAB 650MG DOSE (2X325MG) PO PRN (15:40)
[2020-06-26] MEDS: COLCHICINE 0.6 MG TABLET PO SCH (15:53)
[2020-06-26] MEDS: methylPREDNISolone 125MG 2ML VIAL IV SCH (15:55)
[2020-06-26] MEDS: HEPARIN SOD (PORCINE) 5000UNITS/ML 1ML VIAL/SYRINGE SC SCH (15:58)
--- NOTE | 2020-06-26 16:19 | HPEPDOC ---
[facility] Medical History & Physical Date of Admission Jun 26, 2020 Date of Service: Jun 26, 2020 History and Physical Chief complaint: Who presented to the emergency room with complaints of chest pain History of present illness: Patient is a 61-year-old male who presented to the emergency room with complaints of chest pain. Patient reported that over the last 1 month he has received 3 different rounds of steroids and antibiotics for COPD/bronchitis. Patient reported that on Tuesday he was experiencing worsening shortness of breath and came to the emergency room for further evaluation. He was advised that he had bronchitis and instructed to continue with inhaled therapy. Patient had subsequently followed up with his primary care provider on 06/25 when he was given prednisone 40 mg and another antibiotic. Patient had seen pulmonology today and was complaining of persistent chest pain and was sent to the emergency room for further evaluation. Patient reports that he has felt tired and weak. Patient reports that every time he exerts himself he feels short of breath. He does experience this chest pain described as a pressure, substernal ongoing for the last few days, non- radiating, lasting for about 5 minutes to hours. Patient reports that his pain is exacerbated by laying on his back and gets some alleviation by leaning forward. Patient denies any excessive sweating, nausea or vomiting. Patient denies any abdominal pain, constipation, diarrhea, or urinary discomfort. Denies any chills but did report having fevers on Tuesday and Tuesday. Patient reports that his oral intake has decreased. 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 Review of Systems: 10 point review of systems complete, all negative otherwise stated in HPI Physical exam: - Vitals: BP [148/98], HR [80], RR [22], Sat [97%RA], Temp [97.9F] - General: Sitting up in bed, Speaking in full sentences, AAOx3 - HEENT: NC, AT, PERRLA - CVS: RRR, +S1S2 - Lungs: Fair air entry bilaterally, No appreciable wheezing / rales / rhonchi - Abdomen: Soft, Non-distended, Non-tender - Extremities: No lower extremity edema, No calf tenderness - Neuro: No focal motor or sensory deficit - Skin: No visible rashes Labs: See below Imaging: CXR 06/26: Focal increased density in the right cardio phrenic angle as an interval change. This could be artifact from portable technique or could represent right middle lobe infiltrate/collapse. Consider CT for further evaluation. CTA 06/26: There are no pulmonary emboli. There are no acute infiltrates or pleural effusions. There are chronic stable changes as described consisting of extensive bolus replacement of the lung parenchyma and focal zones of chronic atelectasis/scarring. Occasional calcified granulomas are again noted. There is no adenopathy or mass. 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 faculty member for chest pain - Chest pain is atypical in nature, alleviated by leaning for aggravated by leaning back - Troponin times per set is negative; will follow trend - EKG reviewed without any ischemic change - Imaging noted above without any pneumonia or PE - Will place patient in PCU for continued telemetry monitoring - Will check ECHO - Trend CRP - Will start Colchicine / Solumedrol - Will provide pain control with Morphine PRN - Case discussed with and consulted Cardiology; will evaluate today Chronic COPD - No evidence of exacerbation - Will DC Levofloxacin - Continue with inhaled therapy as ordered HTN - BP well controlled - Will hold HCTZ / Lisinopril for now DLP - c/w Simvastatin Neuropathy - c/w Gabapentin GERD - c/w Famotidine DVT prophylaxis - Will start Heparin Vital Signs Vital Signs Date Time Temp Pulse Resp B/P (MAP) Pulse Ox O2 Delivery O2 Flow Rate FiO2 06/26/20 16:00 24 96 Room Air 06/26/20 15:12 80 06/26/20 15:00 148/98 (115) 06/26/20 11:44 97.9 Laboratory Data Labs 24H Laboratory Tests 2 06/26/20 12:33: Immature Granulocyte % (Auto) 0.5, Neutrophils (%) (Auto) 92.5H, Lymphocytes (%) (Auto) 4.8L, Monocytes (%) (Auto) 2.1, Eosinophils (%) (Auto) 0.0, Basophils (%) (Auto) 0.1, Neutrophils # (Auto) 13.9H, Lymphocytes # (Auto) 0.7L, Monocytes # (Auto) 0.3, Eosinophils # (Auto) 0.0, Basophils # (Auto) 0.0, Nucleated Red Blood Cells % (auto) 0.0, Erythrocyte Sedimentation Rate 3, Prothrombin Time 13.2, Prothromb Time International Ratio 0.98, Total Bilirubin 0.4, Direct Bilirubin 0.1, Aspartate Amino Transf (AST/SGOT) 13, Alanine Aminotransferase (ALT/SGPT) 46, Alkaline Phosphatase 97, Total Creatine Kinase 51, Creatine Kinase MB 1.7, Creatine Kinase MB Relative Index 3.33, Troponin I < 0.02, C- Reactive Protein, Quantitative 0.61H, GU-Hhc-N-Type Natriuretic Peptide 41, Total Protein 6.8, Albumin 3.7, Albumin/Globulin Ratio 1.2, Lipase 82, Thyroid Stimulating Hormone (TSH) 0.415 06/26/20 12:34: POC Glucose (Misc Panel) 158H, POC Sodium (Misc Panel) 135L, POC Potassium (Misc Panel) 4.2, POC Chloride (Misc Panel) 104, POC Total CO2 (Misc Panel) 19.0L, POC Blood Urea Nitrogen (Misc Panel 19, POC Ionized Calcium (Misc Panel) 4.9, POC Creatinine (Misc Panel) 1.2, POC Hematocrit (Misc Panel) 47.0 CBC/BMP Laboratory Tests 06/26/20 12:33 Microbiology Microbiology 06/26/20 Respiratory Virus Panel (PCR) (ABIGAIL) - Final, Complete Home Medications Scheduled Famotidine (Famotidine) 20 Mg Tablet, 20 MG PO BID Fluticasone/Vilanterol (Breo Ellipta 200-25 Mcg INH) 1 Each Blst.w.dev, 1 PUFF INH DAILY Gabapentin (Gabapentin) 100 Mg Capsule, 200 MG PO BID Levofloxacin (Levofloxacin) 500 Mg Tablet, 500 MG PO QPM FOR 7 DAYS, STARTED 06/23 Lisinopril/Hydrochlorothiazide (Lisinopril-Hctz 20-12.5 mg Tab) 1 Each Tablet, 1 TAB PO DAILY Prednisone (Prednisone) 10 Mg Tablet, 10 MG PO TAPER STARTED 06/26 40MG DAILY X 4 DAYS 30MG DAILY X 4 DAYS 20MG DAILY X 4 DAYS' 10MG DAILY X 4 DAYS 5MG DAILY X 4 DAYS Simvastatin (Simvastatin) 20 Mg Tablet, 20 MG PO QHS Umeclidinium Manquin (Incruse Ellipta) 62.5 Mcg Blst.w.dev, 1 PUFF INH DAILY Scheduled PRN Acetaminophen (Tylenol Extra Strength) 500 Mg Tablet, 1,000 MG PO Q6H PRN for PAIN Albuterol Sulf (Albuterol Sulfate) 2.5 Mg/3 Ml Vial.neb, 2.5 MG INH Q6H PRN for SHORTNESS OF BREATH Albuterol Sulfate (Proair Hfa) 8.5 Gm Hfa.aer.ad, 2 PUFF INH Q4H PRN for SHORTNESS OF BREATH Allergies Coded Allergies: No Known Allergies (Unverified , 09/17/19) TOMÁS CEDENO MD Jun 26, 2020 16:19
[2020-06-26] MEDS ORDERED: ALBUTEROL SULFATE 2.5 MG/0.5 ML INH NEB SOLN INH PRN (16:20)
[2020-06-26] MEDS ORDERED: ALBUTEROL 90 MCG/ACT 8GM HFA INHALER INH PRN (16:20)
[2020-06-26 16:59] LABS: CK-MB VALUE MASS 1.5 NG/ML (<3.6); CPK CREATINE PHOSPHOKINASE 44 U/L (39-308); MB/CK RELATIVE INDEX 3.41 (< OR =4); TROPONIN I < 0.02 NG/ML (< 0.10)
[2020-06-26 18:00] VITALS: BP 143/88
[2020-06-26 18:54] LABS: CK-MB VALUE MASS 1.5 NG/ML (<3.6); CPK CREATINE PHOSPHOKINASE 42 U/L (39-308); MB/CK RELATIVE INDEX 3.57 (< OR =4); TROPONIN I < 0.02 NG/ML (< 0.10)
[2020-06-26] MEDS ORDERED: SLF 3 ML SYR IV PRN (18:55)
[2020-06-26] MEDS: ADVAIR HFA 230/21MCG INHALER INH SCH (19:54)
[2020-06-26 20:00] VITALS: BP 132/84
[2020-06-26] MEDS: SIMVASTATIN 20 MG TAB PO SCH (20:44)
[2020-06-26] MEDS: FAMOTIDINE 20 MG TAB PO SCH (20:44)
[2020-06-26] MEDS: MORPHINE 2 MG/ML 1ML VIAL (J2270) IV PRN (20:45)
[2020-06-26] MEDS: SLF 3 ML SYR IV SCH (22:00)
[2020-06-27] VITALS: BP 105/74
[2020-06-27] MEDS: methylPREDNISolone 125MG 2ML VIAL IV SCH ×3 (00:18→16:51)
[2020-06-27] MEDS: MORPHINE 2 MG/ML 1ML VIAL (J2270) IV PRN ×2 (00:19→14:48)
[2020-06-27 01:06] LABS: CK-MB VALUE MASS 1.5 NG/ML (<3.6); CPK CREATINE PHOSPHOKINASE 32 U/L (39-308); MB/CK RELATIVE INDEX 4.69 (< OR =4); TROPONIN I < 0.02 NG/ML (< 0.10)
[2020-06-27 04:00] VITALS: BP 120/81
[2020-06-27] MEDS: COLCHICINE 0.6 MG TABLET PO SCH ×2 (04:00→21:05)
[2020-06-27] MEDS: SLF 3 ML SYR IV SCH ×3 (05:22→22:00)
[2020-06-27 05:41] LABS: BASO % 0.2 % (0.0-1.0); HEMATOCRIT 43.4 % (42.0-52.0); HEMOGLOBIN 14.1 g/dl (13.5-17.5); LYMPH # 0.6 10^3/uL (1.5-5.0); LYMPH % 4.9 % (24.0-44.0); MEAN CORPUSCULAR HEMOGLOBIN 28.4 pg (27.0-33.0); MEAN CORPUSCULAR HGB CONC 32.5 g/dl (32.0-36.5); MEAN CORPUSCULAR VOLUME 87.3 fl (80.0-96.0); MONO # 0.4 10^3/uL (0.0-0.8); NEUTROPHILS # 11.5 10^3/uL (1.5-8.5); NEUTROPHILS % 91.2 % (36.0-66.0); PLATELET COUNT, AUTOMATED 330 10^3/uL (150-450); RED BLOOD COUNT 4.97 10^6/uL (4.30-6.10); WHITE BLOOD COUNT 12.6 10^3/uL (4.0-10.0)
--- NOTE | 2020-06-27 05:58 | ECGEPIP ---
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
[2020-06-27 06:02] LABS: ALBUMIN 3.2 GM/DL (3.2-5.2); ALT/SGPT 37 U/L (12-78); BILIRUBIN,TOTAL 0.4 MG/DL (0.2-1.0); BLOOD UREA NITROGEN 21 MG/DL (7-18); CALCIUM LEVEL 9.4 MG/DL (8.8-10.2); CARBON DIOXIDE LEVEL 24 MEQ/L (21-32); CHLORIDE LEVEL 105 MEQ/L (98-107); CK-MB VALUE MASS 1.4 NG/ML (<3.6); CPK CREATINE PHOSPHOKINASE 43 U/L (39-308); CREATININE FOR GFR 1.18 MG/DL (0.70-1.30); GLOMERULAR FILTRATION RATE > 60.0 (>49); GLUCOSE, FASTING 167 MG/DL (70-100); MAGNESIUM LEVEL 2.3 MG/DL (1.8-2.4); MB/CK RELATIVE INDEX 3.26 (< OR =4); POTASSIUM SERUM 4.4 MEQ/L (3.5-5.1); SODIUM LEVEL 137 MEQ/L (136-145); TOTAL PROTEIN 6.2 GM/DL (6.4-8.2); TROPONIN I < 0.02 NG/ML (< 0.10)
[2020-06-27] MEDS: ADVAIR HFA 230/21MCG INHALER INH SCH ×2 (07:23→20:04)
[2020-06-27 08:00] VITALS: BP 137/68
[2020-06-27] MEDS: HEPARIN SOD (PORCINE) 5000UNITS/ML 1ML VIAL/SYRINGE SC SCH ×3 (08:00→15:41)
[2020-06-27] MEDS: FAMOTIDINE 20 MG TAB PO SCH ×2 (08:49→21:04)
[2020-06-27] MEDS ORDERED: COLCHICINE 0.6 MG TABLET PO STA (11:29)
--- NOTE | 2020-06-27 11:39 | IPNPDOC ---
Text Note Date of Service The patient was seen on 06/27/20. NOTE Subjective: Patient is a 61-year-old male who presented to the emergency room with complaints of chest pain. Patient reported that over the last 1 month he has received 3 different rounds of steroids and antibiotics for COPD/bronchitis. Patient reported that on Tuesday he was experiencing worsening shortness of breath and came to the emergency room for further evaluation. He was advised that he had bronchitis and instructed to continue with inhaled therapy. Patient had subsequently followed up with his primary care provider on 06/25 when he was given prednisone 40 mg and another antibiotic. Patient had seen pulmonology on the day of arrival and was complaining of persistent chest pain and was sent to the emergency room for further evaluation. Patient reported that he has felt tired and weak. Patient reports that every time he exerts himself he feels short of breath. He does experience this chest pain described as a pressure, substernal ongoing for the last few days, non-radiating, lasting for about 5 minutes to hours. Patient reports that his pain is exacerbated by laying on his back and gets some alleviation by leaning forward. Patient denies any excessive sweating, nausea or vomiting. Patient was admitted to the hospital service for further evaluation and treatment. Patient was seen and examined at the bedside. Currently patient reports that he is not experiencing any significant chest pain. Denies any nausea, vomiting, shortness of breath, palpitations, abdominal pain, diarrhea, or urinary discomfort. Objective: Vitals (See below) General: Lying in bed, appears comfortable, AAOx3 HEENT: NC, AT CVS: +S1S2 Lungs: Fair air entry b/l, no wheezing, rhonchi or rales Abdomen: Soft, nondistended and nontender Extremities: - Edema, - Calf tenderness Imaging: CXR 06/26: Focal increased density in the right cardio phrenic angle as an interval change. This could be artifact from portable technique or could represent right middle lobe infiltrate/collapse. Consider CT for further evaluation. CTA 06/26: There are no pulmonary emboli. There are no acute infiltrates or pleural effusions. There are chronic stable changes as described consisting of extensive bolus replacement of the lung parenchyma and focal zones of chronic atelectasis/s carring. Occasional calcified granulomas are again noted. There is no adenopathy or mass. Assessment and plan: Chest pain; possibly 2/2 pericarditis, less likely 2/2 ACS, less likely 2/2 PE, less likely 2/2 PNA - Patient presented to the ER, sent in by hr specialist for chest pain - Patient reports that their pain is doing better today; has not required morphine - Troponin x 4 negative - CRP improving - EKG reviewed without any ischemic change - Imaging noted above without any pneumonia or PE - c/w Telemetry monitoring - ECHO pending - Trend CRP - c/w Colchicine / Solumedrol - c/w Morphine PRN - Cardiology on consultation; will be evaluating Chronic COPD - No evidence of exacerbation - s/p Levofloxacin - c/w inhaled therapy as ordered HTN - BP well controlled - Will hold HCTZ / Lisinopril for now DLP - c/w Simvastatin Neuropathy - c/w Gabapentin GERD - c/w Famotidine DVT prophylaxis - c/w Heparin Disposition: - Awaiting clinical improvement VS,Laila, I+O VS, Laila, I+O Laboratory Tests 06/26/20 12:33 06/27/20 05:08 Vital Signs Date Time Temp Pulse Resp B/P (MAP) Pulse Ox O2 Delivery O2 Flow Rate FiO2 06/27/20 08:00 97.3 74 16 137/68 (91) 95 Room Air 06/26/20 17:11 95.0 I&O- Last 24 Hours up to 6 AM 06/27/20 06:00 Intake Total 360 ml Output Total 800 ml Balance -440 ml TOMÁS CEDENO MD Jun 27, 2020 11:39
[2020-06-27 12:00] VITALS: BP 145/63
[2020-06-27 16:00] VITALS: BP 155/91
[2020-06-27 20:00] VITALS: BP 141/84
[2020-06-27] MEDS: SIMVASTATIN 20 MG TAB PO SCH (21:04)
[2020-06-28] VITALS: BP 117/77
[2020-06-28] MEDS: methylPREDNISolone 125MG 2ML VIAL IV SCH ×3 (00:50→16:22)
[2020-06-28 04:00] VITALS: BP 129/79
[2020-06-28 05:24] LABS: HEMOGLOBIN 14.2 g/dl (13.5-17.5); LYMPH # 0.5 10^3/uL (1.5-5.0); LYMPH % 2.4 % (24.0-44.0); MEAN CORPUSCULAR HEMOGLOBIN 28.8 pg (27.0-33.0); MEAN CORPUSCULAR VOLUME 87.2 fl (80.0-96.0); MONO # 0.5 10^3/uL (0.0-0.8); MONO % 2.2 % (2.0-8.0); NEUTROPHILS # 19.2 10^3/uL (1.5-8.5); NEUTROPHILS % 94.7 % (36.0-66.0); PLATELET COUNT, AUTOMATED 353 10^3/uL (150-450); RED BLOOD COUNT 4.93 10^6/uL (4.30-6.10); WHITE BLOOD COUNT 20.3 10^3/uL (4.0-10.0)
[2020-06-28 05:54] LABS: ALBUMIN 3.4 GM/DL (3.2-5.2); ALT/SGPT 52 U/L (12-78); BILIRUBIN,TOTAL 0.3 MG/DL (0.2-1.0); BLOOD UREA NITROGEN 27 MG/DL (7-18); CALCIUM LEVEL 8.9 MG/DL (8.8-10.2); CARBON DIOXIDE LEVEL 26 MEQ/L (21-32); CHLORIDE LEVEL 105 MEQ/L (98-107); CREATININE FOR GFR 1.01 MG/DL (0.70-1.30); GLOMERULAR FILTRATION RATE > 60.0 (>49); GLUCOSE, FASTING 170 MG/DL (70-100); MAGNESIUM LEVEL 2.4 MG/DL (1.8-2.4); POTASSIUM SERUM 4.5 MEQ/L (3.5-5.1); SODIUM LEVEL 138 MEQ/L (136-145); TOTAL PROTEIN 6.1 GM/DL (6.4-8.2)
[2020-06-28] MEDS: SLF 3 ML SYR IV SCH ×3 (06:26→21:23)
[2020-06-28] MEDS: ADVAIR HFA 230/21MCG INHALER INH SCH ×2 (07:07→19:35)
[2020-06-28 08:00] VITALS: BP 152/90
[2020-06-28] MEDS: HEPARIN SOD (PORCINE) 5000UNITS/ML 1ML VIAL/SYRINGE SC SCH ×3 (08:00→16:00)
[2020-06-28] MEDS: MORPHINE 2 MG/ML 1ML VIAL (J2270) IV PRN (09:42)
[2020-06-28] MEDS: FAMOTIDINE 20 MG TAB PO SCH ×2 (09:42→21:23)
[2020-06-28] MEDS: COLCHICINE 0.6 MG TABLET PO SCH ×2 (09:42→21:23)
--- NOTE | 2020-06-28 10:46 | IPNPDOC ---
Text Note Date of Service The patient was seen on 06/28/20. NOTE Subjective: Patient is a 61-year-old male who presented to the emergency room with complaints of chest pain. Patient reported that over the last 1 month he has received 3 different rounds of steroids and antibiotics for COPD/bronchitis. Patient reported that on Tuesday he was experiencing worsening shortness of breath and came to the emergency room for further evaluation. He was advised that he had bronchitis and instructed to continue with inhaled therapy. Patient had subsequently followed up with his primary care provider on 06/25 when he was given prednisone 40 mg and another antibiotic. Patient had seen pulmonology on the day of arrival and was complaining of persistent chest pain and was sent to the emergency room for further evaluation. Patient reported that he has felt tired and weak. Patient reports that every time he exerts himself he feels short of breath. He does experience this chest pain described as a pressure, substernal ongoing for the last few days, non-radiating, lasting for about 5 minutes to hours. Patient reports that his pain is exacerbated by laying on his back and gets some alleviation by leaning forward. Patient denies any excessive sweating, nausea or vomiting. Patient was admitted to the hospital service for f urther evaluation and treatment. Patient was seen and examined at the bedside. Patient was that they still experiences chest pressure in the center worsened with exertion. However, reports that this improves with leaning forward. Objective: Vitals (See below) General: Lying in bed, appears comfortable, AAOx3 HEENT: NC, AT CVS: +S1S2 Lungs: Fair air entry b/l, no wheezing, rhonchi or rales Abdomen: Soft, nondistended and nontender Extremities: No evidence of LE, - Calf tenderness Imaging: CXR 06/26: Focal increased density in the right cardio phrenic angle as an interval change. This could be artifact from portable technique or could represent right middle lobe infiltrate/collapse. Consider CT for further evaluation. CTA 06/26: There are no pulmonary emboli. There are no acute infiltrates or pleural effusions. There are chronic stable changes as described consisting of extensive bolus replacement of the lung parenchyma and focal zones of chronic atelectasis/scarring. Occasional calcified granulomas are again noted. There is no adenopathy or mass. Assessment and plan: Chest pain; possibly 2/2 pericarditis, less likely 2/2 ACS, less likely 2/2 PE, less likely 2/2 PNA - Patient reports that yesterday with evaluation. He was experiencing chest pain - Troponin x 4 negative; will repeat this morning - CRP normalized - EKG reviewed without any ischemic change; will repeat - Imaging noted above without any pneumonia or PE - c/w Telemetry monitoring - ECHO complete; report pending - c/w Colchicine / Solumedrol - c/w Morphine PRN - Cardiology on consultation; case discussed with Dr. Hollis; will await results of echocardiogram, based on results will consider transfer for cardiac Chronic COPD - No evidence of exacerbation - s/p Levofloxacin - c/w inhaled therapy as ordered HTN - BP well controlled - Will resume HCTZ / Lisinopril with hold parameters DLP - c/w Simvastatin Neuropathy - c/w Gabapentin GERD - c/w Famotidine DVT prophylaxis - c/w Heparin Disposition: - Awaiting clinical improvement - Awaiting ECHO VS,Laila, I+O VS, Laila, I+O Laboratory Tests 06/28/20 04:59 Vital Signs Date Time Temp Pulse Resp B/P (MAP) Pulse Ox O2 Delivery O2 Flow Rate FiO2 06/28/20 09:42 152/90 06/28/20 09:42 20 06/28/20 08:00 97.8 77 95 Room Air 06/26/20 17:11 95.0 I&O- Last 24 Hours up to 6 AM 06/28/20 06:00 Intake Total 1060 ml Output Total 1625 ml Balance -565 ml TOMÁS CEDENO MD Jun 28, 2020 10:46
[2020-06-28 11:29] LABS: CK-MB VALUE MASS 1.4 NG/ML (<3.6); CPK CREATINE PHOSPHOKINASE 30 U/L (39-308); MB/CK RELATIVE INDEX 4.67 (< OR =4); TROPONIN I < 0.02 NG/ML (< 0.10)
[2020-06-28] MEDS: hydroCHLOROthiazide 12.5 MG CAPSULE PO SCH (11:55)
[2020-06-28 12:00] VITALS: BP 125/83
[2020-06-28 16:00] VITALS: BP 127/91
[2020-06-28] MEDS ORDERED: GI COCKTAIL 50ML BTL(HYOSCYAMINE/MAALOX/LIDOCAINE VISCOUS)(1:3:1) PO ONE (16:00)
[2020-06-28 20:00] VITALS: BP 125/79
[2020-06-28] MEDS: SIMVASTATIN 20 MG TAB PO SCH (21:23)
[2020-06-29] VITALS (7 sets, daily range): BP systolic 113–148; BP diastolic 67–85
[2020-06-29] MEDS: methylPREDNISolone 125MG 2ML VIAL IV SCH ×3 (00:33→16:46)
[2020-06-29] MEDS: SLF 3 ML SYR IV SCH ×3 (05:46→21:50)
[2020-06-29 05:58] LABS: BASO % 0.1 % (0.0-1.0); HEMATOCRIT 43.1 % (42.0-52.0); HEMOGLOBIN 14.3 g/dl (13.5-17.5); LYMPH # 0.5 10^3/uL (1.5-5.0); LYMPH % 2.6 % (24.0-44.0); MEAN CORPUSCULAR HGB CONC 33.2 g/dl (32.0-36.5); MEAN CORPUSCULAR VOLUME 87.4 fl (80.0-96.0); MONO # 0.6 10^3/uL (0.0-0.8); MONO % 3.5 % (2.0-8.0); NEUTROPHILS # 16.9 10^3/uL (1.5-8.5); PLATELET COUNT, AUTOMATED 356 10^3/uL (150-450); RED BLOOD COUNT 4.93 10^6/uL (4.30-6.10); WHITE BLOOD COUNT 18.2 10^3/uL (4.0-10.0)
[2020-06-29 06:22] LABS: ALBUMIN 3.2 GM/DL (3.2-5.2); ALT/SGPT 49 U/L (12-78); BILIRUBIN,TOTAL 0.5 MG/DL (0.2-1.0); BLOOD UREA NITROGEN 28 MG/DL (7-18); CALCIUM LEVEL 8.8 MG/DL (8.8-10.2); CARBON DIOXIDE LEVEL 23 MEQ/L (21-32); CHLORIDE LEVEL 104 MEQ/L (98-107); CREATININE FOR GFR 1.01 MG/DL (0.70-1.30); GLOMERULAR FILTRATION RATE > 60.0 (>49); GLUCOSE, FASTING 168 MG/DL (70-100); MAGNESIUM LEVEL 2.4 MG/DL (1.8-2.4); POTASSIUM SERUM 4.2 MEQ/L (3.5-5.1); SODIUM LEVEL 134 MEQ/L (136-145); TOTAL PROTEIN 6.4 GM/DL (6.4-8.2)
[2020-06-29] MEDS: ADVAIR HFA 230/21MCG INHALER INH SCH ×2 (07:19→20:48)
[2020-06-29] MEDS: HEPARIN SOD (PORCINE) 5000UNITS/ML 1ML VIAL/SYRINGE SC SCH ×4 (08:00→23:40)
[2020-06-29] MEDS: COLCHICINE 0.6 MG TABLET PO SCH ×2 (08:59→21:50)
[2020-06-29] MEDS: hydroCHLOROthiazide 12.5 MG CAPSULE PO SCH (08:59)
[2020-06-29] MEDS: FAMOTIDINE 20 MG TAB PO SCH ×2 (08:59→21:49)
--- NOTE | 2020-06-29 10:41 | IPNPDOC ---
Text Note Date of Service The patient was seen on 06/29/20. NOTE Subjective: Patient is a 61-year-old male who presented to the emergency room with complaints of chest pain. Patient reported that over the last 1 month he has received 3 different rounds of steroids and antibiotics for COPD/bronchitis. Patient reported that on Tuesday he was experiencing worsening shortness of breath and came to the emergency room for further evaluation. He was advised that he had bronchitis and instructed to continue with inhaled therapy. Patient had subsequently followed up with his primary care provider on 06/25 when he was given prednisone 40 mg and another antibiotic. Patient had seen pulmonology on the day of arrival and was complaining of persistent chest pain and was sent to the emergency room for further evaluation. Patient reported that he has felt tired and weak. Patient reports that every time he exerts himself he feels short of breath. He does experience this chest pain described as a pressure, substernal ongoing for the last few days, non-radiating, lasting for about 5 minutes to hours. Patient reports that his pain is exacerbated by laying on his back and gets some alleviation by leaning forward. Patient denies any excessive sweating, nausea or vomiting. Patient was admitted to the hospital service for f urther evaluation and treatment. Patient was seen and examined at the bedside and his was present on speaker phone. Patient reports that this morning he was ambulating and did experience some chest discomfort at the end of his walk. Denies any nausea, vomiting, or palpitations. Reports that he does experience shortness of breath when he exerts himself. Denies any diarrhea, or urinary discomfort. Objective: Vitals (See below) General: Patient is sitting at edge of the bed, appears to be comfortable, currently not in any acute distress, is awake, alert, oriented to person, place and time HEENT: NC, AT CVS: +S1S2 Lungs: There appears to be fair air entry bilaterally without evidence of crackles, wheezing or rhonchi Abdomen: His abdomen remains soft without any appreciated distention or tenderness Extremities: Lower extremities do not reveal any pitting edema Imaging: CXR 06/26: Focal increased density in the right cardio phrenic angle as an interval change. This could be artifact from portable technique or could represent right middle lobe infiltrate/collapse. Consider CT for further evaluation. CTA 06/26: There are no pulmonary emboli. There are no acute infiltrates or pleural effusions. There are chronic stable changes as described consisting of extensive bolus replacement of the lung parenchyma and focal zones of chronic atelectasis/scarring. Occasional calcified granulomas are again noted. There is no adenopathy or mass. Assessment and plan: Chest pain; possibly 2/2 pericarditis, less likely 2/2 ACS, less likely 2/2 PE, less likely 2/2 PNA - Patient reports that yesterday with evaluation. He was experiencing chest pain - Troponin x 5 negative - CRP normalized - Serial EKGs have all been negative for any ischemic changes - Imaging noted above without any pneumonia or PE - c/w Telemetry monitoring - ECHO 06/27: Ejection fraction 75%, grade 1 diastolic dysfunction, normal IVC size and collapse, normal valves, no apparent intracardiac mass, miniscule pericardial effusion anteriorly and posteriorly measuring at most 2 mm - c/w Colchicine / Solumedrol - c/w Morphine PRN - Cardiology on consultation; case discussed with Dr. Hollis; will consider transferring to [facility] for further evaluation Chronic COPD - No evidence of exacerbation - s/p Levofloxacin - c/w inhaled therapy as ordered HTN - BP well controlled - c/w HCTZ / Lisinopril with hold parameters DLP - c/w Simvastatin Neuropathy - c/w Gabapentin GERD - c/w Famotidine DVT prophylaxis - c/w Heparin Disposition: - Awaiting clinical improvement - Cardiology to consider transfer to [facility] for further intervention VS,Christianbone, I+O VS, Fishbone, I+O Laboratory Tests 06/29/20 05:43 Vital Signs Date Time Temp Pulse Resp B/P (MAP) Pulse Ox O2 Delivery O2 Flow Rate FiO2 06/29/20 09:00 148/85 06/29/20 08:00 97.5 75 16 97 Room Air 06/26/20 17:11 95.0 I&O- Last 24 Hours up to 6 AM 06/29/20 06:00 Intake Total 1440 ml Output Total 1750 ml Balance -310 ml TOMÁS CEDENO MD Jun 29, 2020 10:41
--- NOTE | 2020-06-29 11:02 | ECGEPIP ---
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 There is now better R wave progressiion. Electronically Signed on 06-29-2020 11:02:05 EDT by Noam Hollis
[2020-06-29] MEDS: ASPIRIN ENTERIC 325 MG TAB PO SCH (16:46)
[2020-06-29] MEDS: SIMVASTATIN 20 MG TAB PO SCH (21:50)
[2020-06-29] MEDS ORDERED: CLOPIDOGREL 300 MG TAB (PLAVIX) PO ONE (22:35)
[2020-06-30] VITALS: BP 113/74
--- NOTE | 2020-06-30 01:03 | REPVR ---
PROCEDURE INFORMATION: Exam: US Duplex Bilateral Extracranial Arteries Exam date and time: 06/30/2020 12:35 AM Age: 60 years old Clinical indication: Numbness / parasthesia; Bilateral; Additional info: Numbness in the upper extremities TECHNIQUE: Imaging protocol: Real-time Duplex ultrasound scan of the bilateral carotid and vertebral arteries combining cummings scale, color Doppler and spectral waveform analysis. Bilateral exam. COMPARISON: PT PET/CT Skull/mid thigh 11/29/2018 8:59 AM FINDINGS: Right common carotid artery: The proximal right common carotid artery demonstrates velocity of 82 cm/s, mid velocity of 66 cm/s and distal velocity of 71 cm/s. Right internal carotid artery: The proximal right internal carotid artery demonstrates velocity of 42 cm/s, mid velocity of 62 cm/s and distal velocity of 87 cm/s. Right ICA/CCA ratio: The right ICA/CCA ratio is 1.06. Right external carotid artery: The right external carotid artery demonstrates velocity of 97 cm/s. Right vertebral artery: The right vertebral artery demonstrates antegrade flow and velocity of 35 cm/s. Left common carotid artery: The proximal left common carotid artery demonstrates velocity of 66 cm/s, mid velocity of 68 cm/s and distal velocity of 58 cm/s. Left internal carotid artery: The left proximal internal carotid artery demonstrates velocity of 51 cm/s, mid velocity of 75 cm/s and distal velocity of 69 cm/s. Left ICA/CCA ratio: The left ICA/CCA ratio is 1.10. Left external carotid artery: The left external carotid artery demonstrates velocity 131 cm/s. Left vertebral artery: The left vertebral artery demonstrates antegrade flow with velocity of 67 cm/s. IMPRESSION: 1. Minimal bilateral plaque. 2. Otherwise negative carotid Doppler evaluation without evidence of hemodynamically significant stenosis. REFERENCES: SRU CRITERIA. The degree of internal carotid artery stenosis is based on criteria defined by the Society of [employer]iologists in Ultras[employer] (SRU). Normal is no stenosis. Mild is less than 50% stenosis. Moderate is 50-69% stenosis. Severe is greater than 69% stenosis to near occlusion. Near occlusion is a markedly narrowed lumen. Total occlusion is no detectable patent lumen. Electronically signed by: Kiran Grace On 06/30/2020 01:03:24 AM
[2020-06-30 04:00] VITALS: BP 127/79
[2020-06-30] MEDS: SLF 3 ML SYR IV SCH (05:39)
[2020-06-30 05:51] LABS: BASO % 0.2 % (0.0-1.0); EOS % 0.1 % (0.0-3.0); HEMATOCRIT 45.9 % (42.0-52.0); LYMPH # 1.2 10^3/uL (1.5-5.0); LYMPH % 6.6 % (24.0-44.0); MEAN CORPUSCULAR HEMOGLOBIN 28.8 pg (27.0-33.0); MEAN CORPUSCULAR HGB CONC 32.7 g/dl (32.0-36.5); MEAN CORPUSCULAR VOLUME 88.3 fl (80.0-96.0); MONO # 1.4 10^3/uL (0.0-0.8); MONO % 7.7 % (2.0-8.0); NEUTROPHILS # 15.7 10^3/uL (1.5-8.5); NEUTROPHILS % 84.3 % (36.0-66.0); PLATELET COUNT, AUTOMATED 386 10^3/uL (150-450); WHITE BLOOD COUNT 18.6 10^3/uL (4.0-10.0)
[2020-06-30 06:19] LABS: ALBUMIN 3.5 GM/DL (3.2-5.2); ALT/SGPT 49 U/L (12-78); BILIRUBIN,TOTAL 0.6 MG/DL (0.2-1.0); BLOOD UREA NITROGEN 26 MG/DL (7-18); CALCIUM LEVEL 9.4 MG/DL (8.8-10.2); CARBON DIOXIDE LEVEL 24 MEQ/L (21-32); CHLORIDE LEVEL 103 MEQ/L (98-107); CREATININE FOR GFR 0.98 MG/DL (0.70-1.30); GLOMERULAR FILTRATION RATE > 60.0 (>49); GLUCOSE, FASTING 120 MG/DL (70-100); MAGNESIUM LEVEL 2.5 MG/DL (1.8-2.4); POTASSIUM SERUM 4.3 MEQ/L (3.5-5.1); SODIUM LEVEL 135 MEQ/L (136-145); TOTAL PROTEIN 6.4 GM/DL (6.4-8.2)
[2020-06-30] MEDS: ADVAIR HFA 230/21MCG INHALER INH SCH (07:13)
[2020-06-30] MEDS ORDERED: COLC0.6T47 PO (07:47)
[2020-06-30] MEDS ORDERED: ASPI32ECTA PO (07:47)
[2020-06-30 08:00] VITALS: BP 132/90
[2020-06-30] MEDS: HEPARIN SOD (PORCINE) 5000UNITS/ML 1ML VIAL/SYRINGE SC SCH ×2 (08:00→08:39)
[2020-06-30] MEDS: ASPIRIN ENTERIC 325 MG TAB PO SCH (08:39)
[2020-06-30] MEDS: FAMOTIDINE 20 MG TAB PO SCH (08:39)
[2020-06-30] MEDS: COLCHICINE 0.6 MG TABLET PO SCH (08:39)
--- NOTE | 2020-06-30 09:46 | DS.PDOC ---
Discharge Summary General Date of Admission Jun 26, 2020 at 15:36 Date of Discharge 06/30/2020 Discharge Summary PROCEDURES PERFORMED DURING STAY: [None]. ADMITTING DIAGNOSES / DISCHARGE DIAGNOSES: Chest pain; possibly 2/2 pericarditis, less likely 2/2 ACS, less likely 2/2 PE, less likely 2/2 PNA Chronic COPD HTN DLP Neuropathy GERD DVT prophylaxis COMPLICATIONS/CHIEF COMPLAINT: Chest Pain. HISTORY OF PRESENT ILLNESS: Patient is a 61-year-old male who presented to the emergency room with complaints of chest pain. Patient reported that over the last 1 month he has received 3 different rounds of steroids and antibiotics for COPD/bronchitis. Patient reported that on Tuesday he was experiencing worsening shortness of breath and came to the emergency room for further evaluation. He was advised that he had bronchitis and instructed to continue with inhaled therapy. Patient had subsequently followed up with his primary care provider on 06/25 when he was given prednisone 40 mg and another antibiotic. Patient had seen pulmonology on the day of arrival and was complaining of persistent chest pain and was sent to the emergency room for further evaluation. Patient reported that he has felt tired and weak. Patient reports that every time he exerts himself he feels short of breath. He does experience this chest pain described as a pressure, substernal ongoing for the last few days, non-radiating, lasting for about 5 minutes to hours. Patient reports that his pain is exacerbated by laying on his back and gets some alleviation by leaning forward. Patient denies any excessive sweating, nausea or vomiting. Patient was admitted to the hospital service for further evaluation and treatment. HOSPITAL COURSE: Chest pain; possibly 2/2 pericarditis, less likely 2/2 ACS, less likely 2/2 PE, less likely 2/2 PNA - Patient continues to experience chest pain, although slightly improved - Troponin x 5 negative - CRP normalized - Serial EKGs have all been negative for any ischemic changes - Imaging noted above without any pneumonia or PE - c/w Telemetry monitoring - ECHO 06/27: Ejection fraction 75%, grade 1 diastolic dysfunction, normal IVC size and collapse, normal valves, no apparent intracardiac mass, miniscule pericardial effusion anteriorly and posteriorly measuring at most 2 mm - c/w Colchicine; s/p Solumedrol - c/w Morphine PRN - Cardiology on consultation; Dr. Hollis has established transferred to for interventional cardiology and likely cardiac cathet erization - Patient has been started on aspirin and has been given a loading dose of Plavix - Will keep patient nothing by mouth Chronic COPD - No evidence of exacerbation - s/p Levofloxacin - c/w inhaled therapy as ordered HTN - BP well controlled - Will DC HCTZ / Lisinopril with hold parameters DLP - c/w Simvastatin Neuropathy - c/w Gabapentin GERD - c/w Famotidine DVT prophylaxis - c/w Heparin DISCHARGE MEDICATIONS: Please see below. ALLERGIES: Please see below. PHYSICAL EXAMINATION ON DISCHARGE: Vitals (See below) General: Patient is sitting up in bed, appears to be comfortable. Reports that at rest he is not pain, awake, alert, oriented 3 HEENT: NC, AT CVS: +S1S2 Lungs: Patient is free of any rhonchi, crackles or wheezing and is fair bilaterally Abdomen: Soft, nondistended and nontender Extremities: No edema LABORATORY DATA: Please see below. IMAGING: CXR 06/26: Focal increased density in the right cardio phrenic angle as an interval change. This could be artifact from portable technique or could represent right middle lobe infiltrate/collapse. Consider CT for further evaluation. CTA 06/26: There are no pulmonary emboli. There are no acute infiltrates or pleural effusions. There are chronic stable changes as described consisting of extensive bolus replacement of the lung parenchyma and focal zones of chronic atelectasis/scarring. Occasional calcified granulomas are again noted. There is no adenopathy or mass. Carotid Duplex 06/29: 1. Minimal bilateral plaque. 2. Otherwise negative carotid Doppler evaluation without evidence of hemodynamically significant stenosis. ACTIVITY: [As tolerated]. DISCHARGE PLAN: Follow-up with switchboard receptionist upon transfer DISPOSITION: Transfer to DISCHARGE CONDITION: [Stable]. TIME SPENT ON DISCHARGE: 35 minutes. Vital Signs/I&Os Vital Signs Date Time Temp Pulse Resp B/P (MAP) Pulse Ox O2 Delivery O2 Flow Rate FiO2 06/30/20 08:00 98.5 67 18 132/90 (104) 96 Room Air 06/26/20 17:11 95.0 I&O- Last 24 Hours up to 6 AM 06/30/20 06:00 Intake Total 1560 ml Output Total 2325 ml Balance -765 ml Laboratory Data Labs 24H Laboratory Tests 2 06/30/20 05:38: Immature Granulocyte % (Auto) 1.1, Neutrophils (%) (Auto) 84.3H, Lymphocytes (%) (Auto) 6.6L, Monocytes (%) (Auto) 7.7, Eosinophils (%) (Auto) 0.1, Basophils (%) (Auto) 0.2, Neutrophils # (Auto) 15.7H, Lymphocytes # (Auto) 1.2L, Monocytes # (Auto) 1.4H, Eosinophils # (Auto) 0.0, Basophils # (Auto) 0.0, Nucleated Red Blood Cells % (auto) 0.0, Anion Gap 8, Glomerular Filtration Rate > 60.0, Calcium Level 9.4, Magnesium Level 2.5H, Total Bilirubin 0.6, Aspartate Amino Transf (AST/SGOT) 11, Alanine Aminotransferase (ALT/SGPT) 49, Alkaline Phosphatase 92, C-Reactive Protein, Quantitative 0.30, Total Protein 6.4, Albumin 3.5, Albumin/Globulin Ratio 1.2 CBC/BMP Laboratory Tests 06/30/20 05:38 Microbiology Microbiology 06/26/20 Respiratory Virus Panel (PCR) (ABIGAIL) - Final, Complete Discharge Medications Scheduled Aspirin (Aspirin EC) 325 Mg Tablet.dr, 325 MG PO DAILY Colchicine (Colchicine) 0.6 Mg Tablet, 0.6 MG PO BID Famotidine (Famotidine) 20 Mg Tablet, 20 MG PO BID, (Reported) Fluticasone/Vilanterol (Breo Ellipta 200-25 Mcg INH) 1 Each Blst.w.dev, 1 PUFF INH DAILY, (Reported) Gabapentin (Gabapentin) 100 Mg Capsule, 200 MG PO BID, (Reported) Simvastatin (Simvastatin) 20 Mg Tablet, 20 MG PO QHS, (Reported) Umeclidinium [place] (Incruse Ellipta) 62.5 Mcg Blst.w.dev, 1 PUFF INH DAILY, (Reported) Scheduled PRN Acetaminophen (Tylenol Extra Strength) 500 Mg Tablet, 1,000 MG PO Q6H PRN for PAIN, (Reported) Albuterol Sulf (Albuterol Sulfate) 2.5 Mg/3 Ml Vial.neb, 2.5 MG INH Q6H PRN for SHORTNESS OF BREATH, (Reported) Albuterol Sulfate (Proair Hfa) 8.5 Gm Hfa.aer.ad, 2 PUFF INH Q4H PRN for SHORTNESS OF BREATH, (Reported) Allergies Coded Allergies: No Known Allergies (Unverified , 09/17/19) TOMÁS CEDENO MD Jun 30, 2020 09:45
--- NOTE | 2020-06-30 14:25 | IPN ---
CARDIOLOGY PROGRESS NOTE DATE: 06/30/2020 SUBJECTIVE: Mr. Isrrael Osullivan was seen earlier this afternoon. He was sitting in his bed in no acute distress at rest and his was at bedside. He was initially admitted on 06/26/2020 with chest pain that was initially thought to be related to pericarditis, but upon talking to him, it seems that he has been having chest pressure and chest heaviness, which was sternal, with some radiation to the back, then up, but not to the neck or the jaw. He also has been having shortness of breath with activities, relieved with rest. When he came to the hospital, he was diaphoretic. The shortness of breath and the chest pressure has been going on for quite a long time and it is getting worse. His electrocardiogram (EKG) on admission did not reveal any significant changes and his serum troponin remained negative, but he continues to be symptomatic when he walks around the nursing station. He denies any palpitations. There is no pedal edema, orthopnea, syncope or near syncope. There is no intermittent claudication. He was started on colchicine and prednisone for presumed pericarditis, but he continues to be symptomatic. Today, I have discontinued the prednisone. He denies any intermittent claudication. He denies any fever or chills. His echocardiogram revealed a normal left ventricular function (LVF). PHYSICAL EXAMINATION: Patient is alert and awake, in no acute distress at rest. VITAL SIGNS: When I saw him earlier this afternoon revealed a blood pressure of 131/74 with a pulse of 83, respirations 18 and a maximum temperature of 97.9 degrees Fahrenheit with an oxygen saturation of 93% on room air. EXAMINATION OF THE HEAD: Atraumatic. NECK: Supple and I could not appreciate any jugular venous distention (JVD). LUNGS: Clear bilaterally to auscultation without any wheezing or crackles. HEART EXAMINATION: Revealed regular heart sounds without gallops. The point of maximum impulse (PMI) is not displaced. There is no rub. I could not appreciate any murmurs. ABDOMEN: Soft. EXTREMITIES: Revealed no pedal edema. Peripheral pulses, dorsalis pedis and radial pulses are 2+ and equal. NEUROLOGICAL EXAMINATION: Is grossly negative for focal deficits. LABORATORY DATA: BMP done today revealed sodium 134, potassium 4.2, chloride 104, CO2 23, BUN 28, creatinine 1.0, GFR more than 60, fasting glucose 168, calcium 8.8, magnesium 1.2. Liver enzymes revealed a total bilirubin of 0.5, AST 10, ALT 49, alkaline phosphatase 84, total protein 6.4, albumin 3.2. Troponin remained negative. Serum pro-BNP on admission was normal. CBC done today revealed a WBC 18.2, hemoglobin 14.3, hematocrit 43.1 and platelets 356,000. PT on admission, 06/26/2020 was 13.2 with an INR of 0.98. Respiratory virus panel revealed negative SARS-CoV-2, negative [id number] by PCR. EKG on admission 06/26/2020 revealed normal sinus rhythm, no acute disease process. IMAGING STUDIES: Chest x-ray on admission 06/26/2020 revealed focal increased density in the right cardiophrenic angle and a chest CT was recommended. CT on 06/26/2020 revealed no pulmonary embolism, no increased infiltrates or pleural effusions, chronic unstable changes. No adenopathy or mass. Small hiatal hernia was present. IMPRESSION: 1. Chest pain, probably angina associated with activities and shortness of breath and prior to hospitalization, he was having occasional diaphoresis. He does have multiple risk factors for coronary artery disease (CAD), such as hypertension, hyperlipidemia and a 50 year history of smoking. This was discussed with him as well as his . I do not believe his pain is related to pericarditis and a cardiac catheterization was recommended because he is symptomatic in the hospital. He has agreed to proceed and this was arranged. He will be transferred tomorrow for the cardiac catheterization. He will be started on aspirin and he will be loaded with Plavix. The prednisone was discontinued. The angiotensin converting enzyme (LINN) inhibitor and the hydrochlorothiazide (HCTZ) will be on hold and they can be restarted after the cardiac catheterization. If needed tomorrow, if his blood pressure is elevated, we can give him amlodipine. 2. Hypertension. This seems to be under control. 3. Hyperlipidemia. On a statin. 4. Deep venous thrombosis (DVT) prophylaxis with subcutaneous heparin. 5. History of chronic obstructive pulmonary disease (COPD). He sees Dr. Ramirez. 6. Possible pericarditis. Echocardiogram, as reported by Dr. Varela, only revealed minimal pericardial effusion. His chest pain seems to be more consistent with angina. He will be referred for a cardiac catheterization. It was a pleasure to participate in the care of . Isrrael Osullivan for his underlying cardiac condition. Case was discussed with the hospitalist and the immediate plan is to proceed with a cardiac catheterization. Dr. Mcdaniels will be the accepting physician. Not mentioned above, he does complain of some numbness in his fingers will proceed with bilateral carotid Doppler.
--- NOTE | 2020-07-01 08:51 | ECHO ---
Age: 60 Gender: Male Height: 72 inches Weight: 163 pounds Body surface area: 1.95 m2 PATIENT LOCATION: Inpatient PCU, Room 3226. REFERRING PHYSICIAN: Leticia Henderson M.D. INDICATION: Chest pain. MEASUREMENTS: 2D Measurements: RV 3.4 cm LV 4.1 cm Septum 1.2 cm Posterior wall 1.2 cm Aortic Root 3.3 cm LA 3.9 cm LVEF 75% Doppler Measurements: AV 1.28 m/s LVOT 1.08 m/s LVOT diameter 2.3 cm MV-E 61, A 75, E/A ratio 0.8 Early mitral deceleration time 238 msec E prime medial 7.6, A prime medial 16, E prime lateral 7.9 Average E/E prime ratio 7.8/PCWP 11.7 mmHg PV 0.9 m/s Pulmonary artery acceleration time 127 msec RVSP 36 mmHg IVC 1.9 cm COMMENTS: Normal sinus rhythm without intraventricular conduction disturbance. M-mode and two-dimensional echocardiography was performed with pulse, continuous wave, color flow, and tissue Doppler studies. Borderline concentric left ventricular hypertrophy with hyperkinetic wall motion. Left atrial size upper limits of normal to slightly dilated with grade 1 LV diastolic dysfunction, but currently normal estimated mean left atrial pressure. Normal right heart chamber sizes and motion with Doppler sign of mild pulmonary hypertension. Normal IVC size and collapse against an elevated central venous pressure. Normal aortic root diameters. Mild aortic valvular sclerosis without functional valvular abnormality. Normal appearing and functioning mitral valve. Normal appearing tricuspid valve with very mild insufficiency. No apparent intracardiac mass. Miniscule pericardial effusion anteriorly and posteriorly measuring at most 2 mm. MTDD
== END 2020-06-30 10:59 | disposition short-term general hospital (02) | DRG 207 ==
LOC: M ED 11:40 → M ED INP 15:36 → ENRESERV 16:07 → M PCU 18:01
PROVIDERS: ADMIT Internal Medicine; ATTEND Internal Medicine
DX: I30.9 Acute pericarditis, unspecified (principal); G62.9 Polyneuropathy, unspecified; I10 Essential (primary) hypertension; J44.9 Chronic obstructive pulmonary disease, unspecified; K21.9 Gastro-esophageal reflux disease without esophagitis; Z79.82 Long term (current) use of aspirin; Z79.899 Other long term (current) drug therapy; R07.9 Chest pain, unspecified

== ENCOUNTER → 2020-11-20 | Outpatient (CLI) | payer OTHER ==
[~2020-11-20] MED LIST changes: +ASPI32ECTA PO; +COLC0.6T47 PO; +GABA-1171 PO; +LEVO500T3 PO; +PRED10TA2 PO
--- NOTE | 2020-11-21 05:21 | REP ---
INDICATION: DYSPNEA ON EXERTON COMPARISON: 12/25/2019, 06/26/2020 TECHNIQUE: PA and lateral. FINDINGS: Mediastinum and cardiac silhouette are within normal limits and stable. Lung marie demonstrate stable chronic changes including few scattered calcified granulomata. Subtle blunting to the bilateral costophrenic angles on both frontal and lateral radiographs represents a relatively new finding and may represent small acute pleural reactions. No further acute consolidation. No pneumothorax. Skeletal structures intact.. IMPRESSION: Subtle new bibasilar pleural reactions/atelectasis cannot be excluded and should be correlated with physical examination and auscultation. <Electronically signed by Stephane Huynh > 11/21/20 2059
== END ==
LOC: M RAD 15:25
PROVIDERS: ATTEND Internal Medicine
DX: R06.09 Other forms of dyspnea (principal); J84.10 Pulmonary fibrosis, unspecified; I30.9 Acute pericarditis, unspecified

== ENCOUNTER → 2020-12-24 | Outpatient (CLI) | payer OTHER | LOC: M LABSMTC 10:57 | PROVIDERS: ATTEND Internal Medicine Cardiovascular Disease | DX: Z11.52 Encounter for screening for COVID-19 (principal) ==

== ENCOUNTER 2021-04-15 09:51 | Emergency (ER) | payer OTHER ==
[~2021-04-15] VITALS: Ht 177.8 cm; Wt 79.1 kg
[~2021-04-15 09:51] MED LIST changes: -LEVO500T3 PO; +LEVO500T4 PO
[2021-04-15 10:55] LABS: BASO # 0.1 10^3/uL (0.0-0.2); BASO % 0.7 % (0.0-1.0); EOS # 0.1 10^3/uL (0.0-0.5); EOS % 1.1 % (0.0-3.0); HEMATOCRIT 46.9 % (42.0-52.0); HEMOGLOBIN 15.7 g/dl (13.5-17.5); LYMPH # 1.6 10^3/uL (1.5-5.0); LYMPH % 16.2 % (24.0-44.0); MEAN CORPUSCULAR HEMOGLOBIN 29.8 pg (27.0-33.0); MEAN CORPUSCULAR HGB CONC 33.5 g/dl (32.0-36.5); MEAN CORPUSCULAR VOLUME 89.2 fl (80.0-96.0); MONO # 0.9 10^3/uL (0.0-0.8); MONO % 8.9 % (2.0-8.0); NEUTROPHILS # 7.1 10^3/uL (1.5-8.5); NEUTROPHILS % 72.7 % (36.0-66.0); PLATELET COUNT, AUTOMATED 354 10^3/uL (150-450); RED BLOOD COUNT 5.26 10^6/uL (4.30-6.10); WHITE BLOOD COUNT 9.8 10^3/uL (4.0-10.0)
[2021-04-15 11:13] LABS: ERYTHROCYTE SEDIMENTATION RATE 1 mm/hr (0-20)
[2021-04-15 11:24] LABS: BLOOD UREA NITROGEN 15 MG/DL (7-18); CALCIUM LEVEL 9.3 MG/DL (8.8-10.2); CARBON DIOXIDE LEVEL 22 MEQ/L (21-32); CHLORIDE LEVEL 110 MEQ/L (98-107); CREATININE FOR GFR 1.05 MG/DL (0.70-1.30); GLOMERULAR FILTRATION RATE > 60.0 (>49); GLUCOSE, FASTING 103 MG/DL (70-100); POTASSIUM SERUM 4.9 MEQ/L (3.5-5.1); SODIUM LEVEL 139 MEQ/L (136-145)
[2021-04-15 12:00] VITALS: BP 138/94
== END 2021-04-15 12:45 | disposition home or self-care (01) ==
LOC: M ED 09:51
DX: R07.89 Other chest pain (principal); I25.10 Atherosclerotic heart disease of native coronary artery without angina pectoris; I10 Essential (primary) hypertension; E78.5 Hyperlipidemia, unspecified; J44.9 Chronic obstructive pulmonary disease, unspecified; K21.9 Gastro-esophageal reflux disease without esophagitis; Z98.61 Coronary angioplasty status; F17.200 Nicotine dependence, unspecified, uncomplicated; Z79.82 Long term (current) use of aspirin; Z79.899 Other long term (current) drug therapy; Z88.5 Allergy status to narcotic agent

== ENCOUNTER → 2021-04-27 | Outpatient (CLI) | payer OTHER | LOC: M RAD 12:56 | PROVIDERS: ATTEND Nurse Practitioner Family | DX: R42 Dizziness and giddiness (principal); I65.23 Occlusion and stenosis of bilateral carotid arteries ==

== ENCOUNTER → 2021-06-15 | Outpatient (CLI) | payer OTHER | LOC: M PLAIMG 10:37 | PROVIDERS: ATTEND Internal Medicine | DX: R51.9 Headache, unspecified (principal); J01.00 Acute maxillary sinusitis, unspecified ==

== ENCOUNTER → 2021-07-15 | Outpatient (REF) | payer OTHER | LOC: M LAB REF 16:37 | PROVIDERS: ATTEND Internal Medicine | DX: R42 Dizziness and giddiness (principal); G44.86 Cervicogenic headache; R53.1 Weakness ==

== ENCOUNTER → 2021-07-24 | Outpatient (CLI) | payer OTHER ==
[~2021-07-24] MED LIST changes: +ISOVUE-370 76% 100ML VIAL As Ordered ONE
== END ==
LOC: M RAD 07:47
PROVIDERS: ATTEND Internal Medicine
DX: R07.9 Chest pain, unspecified (principal); R05.9 Cough, unspecified; J43.9 Emphysema, unspecified; J84.9 Interstitial pulmonary disease, unspecified; J98.11 Atelectasis; K44.9 Diaphragmatic hernia without obstruction or gangrene; N28.1 Cyst of kidney, acquired
CPT/HCPCS: 71046; 71275; Q9967

== ENCOUNTER 2021-07-29 06:54 | Outpatient (CLI) | payer OTHER ==
[~2021-07-29] VITALS: Ht 177.8 cm; Wt 81.8 kg
[~2021-07-29 06:54] MED LIST changes: -ISOVUE-370 76% 100ML VIAL As Ordered ONE
[2021-07-29 07:00] VITALS: BP 182/92
[2021-07-29] MEDS ORDERED: MAGN64TASA PO (07:30)
[2021-07-29] MEDS ORDERED: COSYNTROPIN 0.25 MG/ML VIAL (J0834 PER 0.25MG) IV ONE (07:30)
[2021-07-29] MEDS ORDERED: OMEP-173 PO (07:32)
[2021-07-29] MEDS ORDERED: LISI20TA33 PO (07:32)
[2021-07-29] MEDS ORDERED: MITI1CAP PO (07:32)
[2021-07-29 07:45] VITALS: BP 180/92
[2021-07-29] MEDS ORDERED: TIZA4CAP PO (07:48)
[2021-07-29] MEDS ORDERED: AMLO25TA PO (07:48)
[2021-07-29 08:50] VITALS: BP 169/94
== END 2021-07-29 08:50 | disposition home or self-care (01) ==
LOC: M INFU 06:54
PROVIDERS: ATTEND Internal Medicine
DX: E27.40 Unspecified adrenocortical insufficiency (principal); Z88.6 Allergy status to analgesic agent
CPT/HCPCS: 36592; 82533; 96374; J0834

== ENCOUNTER → 2021-08-05 | Outpatient (REF) | payer OTHER ==
[~2021-08-05] MED LIST changes: +AMLO25TA PO; +LISI20TA33 PO; +MAGN64TASA PO; +MITI1CAP PO; +OMEP-173 PO; +TIZA4CAP PO
== END ==
LOC: M LAB REF 16:45
PROVIDERS: ATTEND Internal Medicine
DX: R26.89 Other abnormalities of gait and mobility (principal); R53.1 Weakness; G62.9 Polyneuropathy, unspecified

== ENCOUNTER → 2021-08-05 | Outpatient (REF) | payer OTHER ==
[2021-08-05 13:41] LABS: TOTAL PROTEIN 6.7 GM/DL (6.4-8.2)
[2021-08-05 13:46] LABS: VITAMIN B12 LEVEL 399 PG/ML
[2021-08-06 11:32] LABS: ALBUMIN 4.21 GM/DL (3.29-5.55); ALBUMIN % 62.8 % (55.8-66.1); ALPHA-1-GLOBULIN % 4.5 % (2.9-4.9); ALPHA-2-GLOBULINS 0.66 GM/DL (0.42-0.99); ALPHA-2-GLOBULINS % 9.9 % (7.1-11.8); BETA-1-GLOBULINS 0.45 GM/DL (0.28-0.60); BETA-1-GLOBULINS % 6.7 % (4.7-7.2); BETA-2-GLOBULINS 0.29 GM/DL (0.19-0.55); BETA-2-GLOBULINS % 4.3 % (3.2-6.5); GAMMA GLOBULIN % 11.8 % (11.1-18.8); GAMMA GLOBULINS 0.79 GM/DL (0.65-1.58)
== END ==
LOC: M LAB REF 12:18
PROVIDERS: ATTEND Internal Medicine
DX: R26.89 Other abnormalities of gait and mobility (principal); R53.1 Weakness

== ENCOUNTER 2021-08-14 18:25 | Inpatient (IN) | payer OTHER ==
[~2021-08-14] VITALS: Ht 177.8 cm; Wt 77.5 kg
[2021-08-14 19:15] LABS: BASO # 0.1 10^3/uL (0.0-0.2); BASO % 0.9 % (0.0-1.0); EOS # 0.3 10^3/uL (0.0-0.5); EOS % 4.2 % (0.0-3.0); HEMATOCRIT 46.6 % (42.0-52.0); HEMOGLOBIN 15.5 g/dl (13.5-17.5); LYMPH # 1.6 10^3/uL (1.5-5.0); LYMPH % 19.3 % (24.0-44.0); MEAN CORPUSCULAR HEMOGLOBIN 30.1 pg (27.0-33.0); MEAN CORPUSCULAR HGB CONC 33.3 g/dl (32.0-36.5); MEAN CORPUSCULAR VOLUME 90.5 fl (80.0-96.0); MONO # 0.8 10^3/uL (0.0-0.8); MONO % 10.2 % (2.0-8.0); NEUTROPHILS # 5.2 10^3/uL (1.5-8.5); NEUTROPHILS % 64.7 % (36.0-66.0); PLATELET COUNT, AUTOMATED 323 10^3/uL (150-450); RED BLOOD COUNT 5.15 10^6/uL (4.30-6.10)
[2021-08-14 19:27] LABS: INR 0.94
[2021-08-14 19:28] LABS: PARTIAL THROMBOPLASTIN TIME 28.1 SECONDS (25.9-37.0)
[2021-08-14 19:34] LABS: BLOOD UREA NITROGEN 24 MG/DL (7-18); CALCIUM LEVEL 9.4 MG/DL (8.8-10.2); CARBON DIOXIDE LEVEL 24 MEQ/L (21-32); CHLORIDE LEVEL 112 MEQ/L (98-107); GLOMERULAR FILTRATION RATE > 60.0 (>49); GLUCOSE, FASTING 112 MG/DL (70-100); PLATELET CLUMPS SMALL AMT; PLATELET ESTIMATE NORMAL (NORMAL); POTASSIUM SERUM 4.8 MEQ/L (3.5-5.1); SODIUM LEVEL 141 MEQ/L (136-145)
[2021-08-14 19:38] LABS: CK-MB VALUE MASS 1.6 NG/ML (<3.6); MB/CK RELATIVE INDEX 2.46 (< OR =4)
[2021-08-14] MEDS ORDERED: KETOROLAC 30 MG/ML 1ML VIAL IV ONE (19:40)
[2021-08-14 19:45] LABS: RSV AMPLIFICATION NEGATIVE (NEGATIVE)
[2021-08-14] MEDS ORDERED: diazePAM 10MG/2ML SYRINGE (J3360 PER 5MG) IV ONE (19:45)
[2021-08-14] MEDS ORDERED: SUMA100T2 PO (23:31)
[2021-08-14] MEDS ORDERED: ASPI81TA26 PO (23:31)
[2021-08-14] MEDS ORDERED: VITA200032 PO (23:31)
[2021-08-14] MEDS ORDERED: TOPI50TA9 PO (23:31)
[2021-08-14] MEDS ORDERED: METO1TAB87 PO (23:31)
[2021-08-14] MEDS ORDERED: HOME MED LIST COMPLETE! XX SCH (23:35)
[2021-08-14] MEDS ORDERED: AMITRIPTYLINE 10MG TABLET PO ONE (23:50)
[2021-08-14] MEDS ORDERED: MAALOX 30 ML SUSP *UDC PO PRN (23:50)
[2021-08-14] MEDS ORDERED: ACETAMINOPHEN TAB 650MG DOSE (2X325MG) PO PRN (23:50)
[2021-08-14] MEDS ORDERED: MOM 30ML SUSPENSION UDC PO PRN (23:50)
[2021-08-14] MEDS ORDERED: SUMAtriptan SUCCINATE 25 MG TAB PO PRN (23:50)
[2021-08-15] MEDS: tiZANidine 4 MG TAB PO SCH ×4 (00:42→21:16)
[2021-08-15] MEDS: TOPIRAMATE (TopAMAX) 100 MG TAB PO SCH ×2 (00:42→21:15)
[2021-08-15 01:14] LABS: INR 1.01; PARTIAL THROMBOPLASTIN TIME 29.6 SECONDS (25.9-37.0); PROTHROMBIN TIME 13.7 SECONDS (12.7-14.5)
[2021-08-15 07:30] LABS: HEMATOCRIT 48.5 % (42.0-52.0); HEMOGLOBIN 16.1 g/dl (13.5-17.5); MEAN CORPUSCULAR HEMOGLOBIN 30.2 pg (27.0-33.0); MEAN CORPUSCULAR HGB CONC 33.2 g/dl (32.0-36.5); PLATELET COUNT, AUTOMATED 317 10^3/uL (150-450); RED BLOOD COUNT 5.33 10^6/uL (4.30-6.10); WHITE BLOOD COUNT 6.8 10^3/uL (4.0-10.0)
[2021-08-15] MEDS: ADVAIR HFA 115/21MCG INHALER INH SCH ×2 (08:14→20:10)
[2021-08-15 08:18] LABS: CALCIUM LEVEL 9.5 MG/DL (8.8-10.2); CREATININE FOR GFR 1.37 MG/DL (0.70-1.30); GLOMERULAR FILTRATION RATE 55.9 (>49); MAGNESIUM LEVEL 2.5 MG/DL (1.8-2.4); POTASSIUM SERUM 4.8 MEQ/L (3.5-5.1)
[2021-08-15 10:10] VITALS: BP 159/101
[2021-08-15] MEDS: DOCUSATE SODIUM 100MG CAPSULE PO SCH ×2 (10:27→21:16)
[2021-08-15] MEDS: OMEPRAZOLE 20MG CAP PO SCH (10:27)
[2021-08-15] MEDS: METOPROLOL TART 12.5 MG PER 1/2 TAB PO SCH ×2 (10:28→21:00)
[2021-08-15] MEDS: ASPIRIN 81MG ENTERIC TABLET PO SCH (10:28)
[2021-08-15] MEDS: FIORICET TAB PO PRN ×2 (10:29→17:07)
[2021-08-15] MEDS: ENOXAPARIN 40MG/0.4ML SYRINGE (J1650 PER 10MG) SC SCH (10:30)
[2021-08-15 14:00] VITALS: BP 101/75
[2021-08-15] MEDS: MECLIZINE 12.5 MG TAB PO SCH ×2 (18:14→21:15)
[2021-08-15 20:00] VITALS: BP 98/70
[2021-08-15] MEDS ORDERED: AMITRIPTYLINE 25MG TABLET PO SCH ×2 (21:00)
[2021-08-15 22:00] VITALS: BP 98/70
[2021-08-16 06:00] VITALS: BP 105/74
[2021-08-16] MEDS: ADVAIR HFA 115/21MCG INHALER INH SCH (07:09)
[2021-08-16 07:16] LABS: HEMATOCRIT 46.8 % (42.0-52.0); HEMOGLOBIN 15.3 g/dl (13.5-17.5); MEAN CORPUSCULAR HGB CONC 32.7 g/dl (32.0-36.5); MEAN CORPUSCULAR VOLUME 91.8 fl (80.0-96.0); PLATELET COUNT, AUTOMATED 325 10^3/uL (150-450)
[2021-08-16 07:32] LABS: CALCIUM LEVEL 9.5 MG/DL (8.8-10.2); CREATININE FOR GFR 1.33 MG/DL (0.70-1.30); GLOMERULAR FILTRATION RATE 57.8 (>49); MAGNESIUM LEVEL 2.3 MG/DL (1.8-2.4); POTASSIUM SERUM 4.6 MEQ/L (3.5-5.1)
[2021-08-16] MEDS ORDERED: MECL-136 PO (08:39)
[2021-08-16] MEDS ORDERED: AMIT25TA17 PO (08:39)
[2021-08-16 09:00] VITALS: BP 105/74
[2021-08-16] MEDS: ENOXAPARIN 40MG/0.4ML SYRINGE (J1650 PER 10MG) SC SCH ×2 (09:00→09:31)
[2021-08-16] MEDS: METOPROLOL TART 12.5 MG PER 1/2 TAB PO SCH (09:00)
[2021-08-16] MEDS: MECLIZINE 12.5 MG TAB PO SCH (09:29)
[2021-08-16] MEDS: ASPIRIN 81MG ENTERIC TABLET PO SCH (09:30)
[2021-08-16] MEDS: tiZANidine 4 MG TAB PO SCH (09:30)
[2021-08-16] MEDS: DOCUSATE SODIUM 100MG CAPSULE PO SCH (09:30)
[2021-08-16] MEDS: OMEPRAZOLE 20MG CAP PO SCH (09:31)
[2021-08-16 10:10] LABS: BASO % 0.3 % (0.0-1.0); EOS # 0.2 10^3/uL (0.0-0.5); EOS % 1.9 % (0.0-3.0); LYMPH # 1.2 10^3/uL (1.5-5.0); LYMPH % 9.2 % (24.0-44.0); MONO # 0.8 10^3/uL (0.0-0.8); MONO % 6.4 % (2.0-8.0); NEUTROPHILS # 10.6 10^3/uL (1.5-8.5); NEUTROPHILS % 81.6 % (36.0-66.0)
[2021-08-16 10:19] LABS: PLATELET ESTIMATE NORMAL (NORMAL)
== END 2021-08-16 14:35 | disposition home or self-care (01) | DRG 54 ==
LOC: M ED 18:25 → M ED INP 23:46 → ENRESERV 08-15 08:48 → M MS5PR 08-15 10:05 → OBSVTOIN 08-15 16:14
PROVIDERS: ADMIT Family Medicine; ATTEND Family Medicine
DX: G43.109 Migraine with aura, not intractable, without status migrainosus (principal); I10 Essential (primary) hypertension; M48.02 Spinal stenosis, cervical region; J44.9 Chronic obstructive pulmonary disease, unspecified; D72.829 Elevated white blood cell count, unspecified; E11.9 Type 2 diabetes mellitus without complications; K21.9 Gastro-esophageal reflux disease without esophagitis; H81.10 Benign paroxysmal vertigo, unspecified ear; M10.9 Gout, unspecified; Z87.891 Personal history of nicotine dependence; Z79.82 Long term (current) use of aspirin; Z79.899 Other long term (current) drug therapy; Z88.5 Allergy status to narcotic agent; Z98.1 Arthrodesis status; Z20.822 Contact with and (suspected) exposure to COVID-19; R55 Syncope and collapse; R26.2 Difficulty in walking, not elsewhere classified

== ENCOUNTER 2021-08-31 20:28 | Emergency (ER) | payer OTHER ==
[~2021-08-31] VITALS: Ht 177.8 cm; Wt 80.5 kg
[~2021-08-31 20:28] MED LIST changes: +ALBU2.5V10 INH; -ALBU83IN INH; +AMIT25TA17 PO; +ASPI81TA26 PO; +MECL-136 PO; +METO1TAB87 PO; +SUMA100T2 PO; +TOPI50TA9 PO; +VITA200032 PO
[2021-08-31] MEDS ORDERED: ONDANSETRON 4MG/2ML VIAL IV ONE (20:55)
[2021-08-31 21:17] LABS: BASO # 0.1 10^3/uL (0.0-0.2); BASO % 0.6 % (0.0-1.0); EOS # 0.2 10^3/uL (0.0-0.5); HEMATOCRIT 45.4 % (42.0-52.0); HEMOGLOBIN 15.1 g/dl (13.5-17.5); LYMPH # 1.3 10^3/uL (1.5-5.0); LYMPH % 8.1 % (24.0-44.0); MEAN CORPUSCULAR HEMOGLOBIN 29.8 pg (27.0-33.0); MEAN CORPUSCULAR HGB CONC 33.3 g/dl (32.0-36.5); MEAN CORPUSCULAR VOLUME 89.5 fl (80.0-96.0); MONO # 0.7 10^3/uL (0.0-0.8); MONO % 4.5 % (2.0-8.0); NEUTROPHILS # 13.3 10^3/uL (1.5-8.5); PLATELET COUNT, AUTOMATED 380 10^3/uL (150-450); RED BLOOD COUNT 5.07 10^6/uL (4.30-6.10); WHITE BLOOD COUNT 15.6 10^3/uL (4.0-10.0)
[2021-08-31] MEDS ORDERED: GI COCKTAIL 50ML BTL(HYOSCYAMINE/MAALOX/LIDOCAINE VISCOUS)(1:3:1) PO ONE (21:40)
[2021-08-31 21:59] LABS: ALBUMIN 3.6 GM/DL (3.2-5.2); BILIRUBIN,DIRECT 0.1 MG/DL (0.0-0.2); BILIRUBIN,TOTAL 0.2 MG/DL (0.2-1.0); CALCIUM LEVEL 9.8 MG/DL (8.8-10.2); CREATININE FOR GFR 1.33 MG/DL (0.70-1.30); FREE T4 1.02 NG/DL (0.76-1.46); GLOMERULAR FILTRATION RATE 57.8 (>49); POTASSIUM SERUM 4.8 MEQ/L (3.5-5.1); THYROID STIMULATING HORMONE 3.29 uIU/ML (0.358-3.740); TOTAL PROTEIN 6.9 GM/DL (6.4-8.2)
[2021-08-31] MEDS ORDERED: METOCLOPRAMIDE INJ 10MG/2ML VIAL (J2765 PER 1) IV ONE (22:05)
[2021-08-31 22:46] LABS: RSV AMPLIFICATION NEGATIVE (NEGATIVE)
[2021-08-31] MEDS ORDERED: PANTOPRAZOLE 40MG VIAL IV ONE (23:15)
[2021-08-31] MEDS ORDERED: PIPERACILLIN/TAZOBACTAM SOD 3.375 GM in D5W MINI-BAG PLUS 50 ML IV ONE (23:15)
[2021-08-31] MEDS: HYDROMORPHONE HCL 0.5 MG/ 0.5 ML SYRINGE (J1170 PER 1) IV PRN (23:38)
[2021-09-01] MEDS: HYDROMORPHONE HCL 0.5 MG/ 0.5 ML SYRINGE (J1170 PER 1) IV PRN (02:05)
[2021-09-01] MEDS ORDERED: HYDROMORPHONE HCL 0.5 MG/ 0.5 ML SYRINGE (J1170 PER 1) IV PRN (05:20)
[2021-09-01 08:56] VITALS: BP 148/88
== END 2021-09-01 09:02 | disposition short-term general hospital (02) ==
LOC: M ED 20:28
DX: K22.3 Perforation of esophagus (principal); R91.1 Solitary pulmonary nodule; K44.9 Diaphragmatic hernia without obstruction or gangrene; J43.2 Centrilobular emphysema; Z79.82 Long term (current) use of aspirin; Z79.899 Other long term (current) drug therapy; Z88.5 Allergy status to narcotic agent
CPT/HCPCS: 71045; 71250; 80048; 80076; 83690; 84439; 84443; 85025; 87631; 93005; 93041; 94760; 96365; 96375; 96376; 99285; C9113; J1170; J2405; J2543; J2765

== ENCOUNTER → 2021-11-22 | Outpatient (CLI) | payer OTHER ==
[~2021-11-22] MED LIST changes: +AMIT50TA PO; +LEVO1TAB39 PO; -LEVO500T4 PO; +ROSU5TAB5 PO; +SERT-141 PO
== END ==
LOC: M LABSMTC 10:24
PROVIDERS: ATTEND Anesthesiology
DX: Z01.812 Encounter for preprocedural laboratory examination (principal); Z20.822 Contact with and (suspected) exposure to COVID-19

== ENCOUNTER 2021-11-26 08:52 | Day surgery (SDC) | payer OTHER ==
[~2021-11-26] VITALS: Ht 177.8 cm; Wt 80.7 kg
[~2021-11-26 08:52] MED LIST changes: +NS 1,000 ML IV ONE
[2021-11-26] MEDS ORDERED: SUCR1TA PO (09:18)
[2021-11-26] MEDS ORDERED: fentaNYL 100 MCG/2 ML INJECTION As Ordered ONE (10:13)
[2021-11-26] MEDS ORDERED: propofoL 200 MG/20 ML VIAL As Ordered ONE ×2 (10:13→10:24)
[2021-11-26] MEDS ORDERED: LIDOCAINE 2% 100MG/5ML SDV (FOR ANES.) As Ordered ONE (10:13)
[2021-11-26 11:10] VITALS: BP 153/98
== END 2021-11-26 11:26 | disposition home or self-care (01) ==
LOC: M OPP 08:52
PROVIDERS: ATTEND Surgery
DX: K44.9 Diaphragmatic hernia without obstruction or gangrene (principal); Q39.9 Congenital malformation of esophagus, unspecified; K22.2 Esophageal obstruction; K29.70 Gastritis, unspecified, without bleeding; R13.10 Dysphagia, unspecified; I10 Essential (primary) hypertension; E78.5 Hyperlipidemia, unspecified; J44.9 Chronic obstructive pulmonary disease, unspecified; Z79.51 Long term (current) use of inhaled steroids; Z79.82 Long term (current) use of aspirin; Z79.899 Other long term (current) drug therapy; Z88.5 Allergy status to narcotic agent
CPT/HCPCS: 43239; 43249; 88305; J3010

== ENCOUNTER → 2022-01-07 | Outpatient (CLI) | payer OTHER ==
[~2022-01-07] MED LIST changes: +B-12100010 PO; +LISI5TAB11 PO; +MECL-86 PO; -NS 1,000 ML IV ONE; +OMEP40CA5 PO; +SUCR1TA PO; +TIZA10TA PO
== END ==
LOC: M LABSMTC 10:13
PROVIDERS: ATTEND Anesthesiology
DX: Z01.812 Encounter for preprocedural laboratory examination (principal); Z11.52 Encounter for screening for COVID-19

== ENCOUNTER 2022-01-12 09:05 | Day surgery (SDC) | payer OTHER ==
[~2022-01-12] VITALS: Ht 177.8 cm; Wt 81.6 kg
[~2022-01-12 09:05] MED LIST changes: +NS 1,000 ML IV ONE
[2022-01-12] MEDS ORDERED: LIDOCAINE 2% 100MG/5ML SDV (FOR ANES.) As Ordered ONE (10:34)
[2022-01-12] MEDS ORDERED: propofoL 200 MG/20 ML VIAL As Ordered ONE (10:34)
[2022-01-12 11:10] VITALS: BP 167/95
== END 2022-01-12 11:15 | disposition home or self-care (01) ==
LOC: M OPP 09:05
PROVIDERS: ATTEND Surgery
DX: K29.60 Other gastritis without bleeding (principal); K44.9 Diaphragmatic hernia without obstruction or gangrene; R13.10 Dysphagia, unspecified; Z79.02 Long term (current) use of antithrombotics/antiplatelets; Z79.51 Long term (current) use of inhaled steroids; Z79.82 Long term (current) use of aspirin; Z79.899 Other long term (current) drug therapy; Z88.5 Allergy status to narcotic agent; Z87.891 Personal history of nicotine dependence; J44.9 Chronic obstructive pulmonary disease, unspecified; I10 Essential (primary) hypertension; E78.00 Pure hypercholesterolemia, unspecified; F32.9 Major depressive disorder, single episode, unspecified; F41.9 Anxiety disorder, unspecified; M13.80 Other specified arthritis, unspecified site; Z80.0 Family history of malignant neoplasm of digestive organs; Z80.3 Family history of malignant neoplasm of breast

== ENCOUNTER → 2022-02-02 | Outpatient (REF) | payer OTHER ==
[~2022-02-02] MED LIST changes: -NS 1,000 ML IV ONE
[2022-02-02 20:35] LABS: AMORPHOUS SEDIMENT, URINE MOD AMOUNT (NEGATIVE); BACTERIA, URINE SMALL AMOUNT; HYALINE CAST, URINE NONE SEEN /lpf (0-1); RBC, URINE NONE SEEN /hpf (0-3); SQUAMOUS EPITHELIAL CELL URINE SMALL AMOUNT /hpf (SMALL AMT); WBC, URINE 0-1 /hpf (0-3)
== END ==
LOC: M LAB REF 17:14
PROVIDERS: ATTEND Internal Medicine
DX: R31.9 Hematuria, unspecified (principal)

== ENCOUNTER → 2022-02-18 | Outpatient (CLI) | payer OTHER ==
[2022-02-18 12:04] LABS: BASO # 0.1 10^3/uL (0.0-0.2); BASO % 0.5 % (0.0-1.0); EOS # 0.2 10^3/uL (0.0-0.5); EOS % 1.6 % (0.0-3.0); HEMATOCRIT 48.9 % (42.0-52.0); HEMOGLOBIN 15.4 g/dl (13.5-17.5); LYMPH # 1.5 10^3/uL (1.5-5.0); LYMPH % 15.2 % (24.0-44.0); MEAN CORPUSCULAR HEMOGLOBIN 29.6 pg (27.0-33.0); MEAN CORPUSCULAR HGB CONC 31.5 g/dl (32.0-36.5); MONO # 0.5 10^3/uL (0.0-0.8); MONO % 5.4 % (2.0-8.0); NEUTROPHILS # 7.7 10^3/uL (1.5-8.5); NEUTROPHILS % 77.1 % (36.0-66.0); PLATELET COUNT, AUTOMATED 360 10^3/uL (150-450); WHITE BLOOD COUNT 9.9 10^3/uL (4.0-10.0)
[2022-02-18 12:59] LABS: ALKALINE PHOSPHATASE 132 U/L (46-116); ALT/SGPT 44 U/L (7.0-40); AST/SGOT 22 U/L (<34); BILIRUBIN,TOTAL 0.4 MG/DL (0.3-1.2); BLOOD UREA NITROGEN 18 MG/DL (9-23); CALCIUM LEVEL 9.3 MG/DL (8.3-10.6); CARBON DIOXIDE LEVEL 25 MMOL/L (20-31); CHLORIDE LEVEL 103 MMOL/L (98-107); GLOMERULAR FILTRATION RATE > 60.0 (>49); GLUCOSE, FASTING 156 MG/DL (74-106); POTASSIUM SERUM 4.1 MMOL/L (3.5-5.1); SODIUM LEVEL 138 MMOL/L (136-145); TOTAL PROTEIN 6.8 G/DL (5.7-8.2)
[2022-02-18 13:00] LABS: TOTAL 25(OH) VITAMIN D 31.5 NG/ML (20.0-100.0)
== END ==
LOC: M LAB 10:28
PROVIDERS: ATTEND Psychiatry & Neurology Neurology
DX: R53.1 Weakness (principal)

== ENCOUNTER → 2022-04-27 | Outpatient (CLI) | payer OTHER | LOC: M RAD 09:28 | PROVIDERS: ATTEND Internal Medicine Pulmonary Disease | DX: J44.9 Chronic obstructive pulmonary disease, unspecified (principal); J84.10 Pulmonary fibrosis, unspecified; I51.7 Cardiomegaly; I77.819 Aortic ectasia, unspecified site; I70.0 Atherosclerosis of aorta ==

== ENCOUNTER → 2022-06-07 | Outpatient (REF) | payer OTHER ==
[~2022-06-07] MED LIST changes: +TOPI-254 PO; -TOPI50TA9 PO
[2022-06-07 17:01] LABS: URIC ACID 5.9 MG/DL (3.7-9.2)
[2022-06-07 17:02] LABS: C REACTIVE PROTEIN QUANTITATIV < 0.40 MG/DL (<1.0)
== END ==
LOC: M LAB REF 16:18
PROVIDERS: ATTEND Internal Medicine
DX: L03.115 Cellulitis of right lower limb (principal)

== ENCOUNTER → 2022-06-29 | Outpatient (CLI) | payer OTHER | LOC: M RAD 13:09 | PROVIDERS: ATTEND Internal Medicine | DX: R23.4 Changes in skin texture (principal) ==

== ENCOUNTER → 2022-07-05 | Outpatient (REF) | payer OTHER | LOC: M LAB REF 16:31 | PROVIDERS: ATTEND Internal Medicine | DX: G60.9 Hereditary and idiopathic neuropathy, unspecified (principal) ==

== ENCOUNTER → 2022-08-24 | Outpatient (CLI) | payer OTHER ==
[2022-08-24 13:15] LABS: FOLATE 8.5 NG/ML (>5.4)
== END ==
LOC: M LAB 11:39
PROVIDERS: ATTEND Psychiatry & Neurology Neurology
DX: R42 Dizziness and giddiness (principal); E53.8 Deficiency of other specified B group vitamins; E51.9 Thiamine deficiency, unspecified; D53.1 Other megaloblastic anemias, not elsewhere classified; E56.0 Deficiency of vitamin E

== ENCOUNTER → 2022-11-17 | Outpatient (REF) | payer OTHER ==
[~2022-11-17] MED LIST changes: -AMIT25TA17 PO; +AMIT25TA19 PO
== END ==
LOC: M LAB REF 11:41
PROVIDERS: ATTEND Internal Medicine Gastroenterology
DX: R13.10 Dysphagia, unspecified (principal)

== ENCOUNTER → 2022-11-17 | Outpatient (CLI) | payer OTHER | LOC: M RAD 10:31 | PROVIDERS: ATTEND Internal Medicine Pulmonary Disease | DX: J44.0 Chronic obstructive pulmonary disease with (acute) lower respiratory infection (principal); J84.10 Pulmonary fibrosis, unspecified; J98.4 Other disorders of lung ==

== ENCOUNTER 2023-05-23 02:30 | Inpatient (IN) | payer OTHER ==
[~2023-05-23] VITALS: Ht 177.8 cm; Wt 84.4 kg
[~2023-05-23 02:30] MED LIST changes: +TOPI-21 PO; -TOPI-254 PO
[2023-05-23 03:17] LABS: VENOUS BASE EXCESS -5.4 (-2.0-2.0); VENOUS O2 SATURATION 96.9 % (60.0-80.0); VENOUS PARTIAL PRESSURE CO2 38.9 mmHg (38.0-50.0); VENOUS PARTIAL PRESSURE O2 107.2 mmHg (30.0-50.0); VENOUS PH 7.329 UNITS (7.330-7.430); VENOUS TOTAL CO2 21.2 MMOL/L (24.0-28.0)
[2023-05-23] MEDS: IPRATROPIUM 0.5MG/ALBUTEROL 2.5MG INH SOL UD 3ML (DUONEB) NEB ONE ×4 (03:18→06:40)
[2023-05-23 03:26] LABS: BASO % 0.4 % (0.0-1.0); EOS # 0.2 10^3/uL (0.0-0.5); EOS % 2.2 % (0.0-3.0); HEMATOCRIT 40.5 % (42.0-52.0); HEMOGLOBIN 13.5 g/dl (13.5-17.5); LYMPH # 1.5 10^3/uL (1.5-5.0); LYMPH % 20.9 % (24.0-44.0); MEAN CORPUSCULAR HEMOGLOBIN 29.6 pg (27.0-33.0); MEAN CORPUSCULAR HGB CONC 33.3 g/dl (32.0-36.5); MEAN CORPUSCULAR VOLUME 88.8 fl (80.0-96.0); MONO # 0.4 10^3/uL (0.0-0.8); MONO % 5.9 % (2.0-8.0); NEUTROPHILS # 5.1 10^3/uL (1.5-8.5); NEUTROPHILS % 70.1 % (36.0-66.0); PLATELET COUNT, AUTOMATED 308 10^3/uL (150-450); RED BLOOD COUNT 4.56 10^6/uL (4.30-6.10); WHITE BLOOD COUNT 7.3 10^3/uL (4.0-10.0)
[2023-05-23 03:45] LABS: CK-MB VALUE MASS 2.4 NG/ML (<3.6)
[2023-05-23 03:47] LABS: ALBUMIN 2.9 G/DL (3.2-5.2); ALKALINE PHOSPHATASE 108 U/L (46-116); ALT/SGPT 130 U/L (7.0-40); AST/SGOT 62 U/L (<34); BILIRUBIN,DIRECT < 0.1 MG/DL (<0.4); BILIRUBIN,TOTAL < 0.2 MG/DL (0.3-1.2); BLOOD UREA NITROGEN 14 MG/DL (9-23); CALCIUM LEVEL 7.8 MG/DL (8.3-10.6); CARBON DIOXIDE LEVEL 21 MMOL/L (20-31); CHLORIDE LEVEL 116 MMOL/L (98-107); CPK CREATINE PHOSPHOKINASE 63 U/L (46-171); CREATININE FOR GFR 1.07 MG/DL (0.70-1.30); GLOMERULAR FILTRATION RATE > 60.0 (>49); GLUCOSE, FASTING 152 MG/DL (74-106); POTASSIUM SERUM 3.8 MMOL/L (3.5-5.1); SODIUM LEVEL 143 MMOL/L (136-145); TOTAL PROTEIN 5.2 G/DL (5.7-8.2)
[2023-05-23 03:49] LABS: THYROID STIMULATING HORMONE 1.364 uIU/ML (0.55-4.78); THYROXINE (T4) 7.4 UG/DL (4.5-10.9)
[2023-05-23] MEDS: MAG SULF 1GM/100ML (MAG RUN) 1 GM in IV 1 EA IV ONE (04:22)
[2023-05-23] MEDS ORDERED: ISOVUE-370 76% 100ML VIAL As Ordered ONE (06:39)
[2023-05-23 07:20] LABS: CK-MB VALUE MASS 2.2 NG/ML (<3.6)
[2023-05-23 07:29] LABS: MB/CK RELATIVE INDEX 3.79 (< OR =4); PROCALCITONIN 0.14 ng/ml
[2023-05-23] MEDS: cefTRIAXone SOD 1 GM in D5W MINI-BAG PLUS 50 ML IV ONE (09:36)
[2023-05-23] MEDS ORDERED: LISI2.5T9 PO (10:17)
[2023-05-23] MEDS ORDERED: LORA-1041 PO (10:17)
[2023-05-23] MEDS ORDERED: TOPI100T9 PO (10:17)
[2023-05-23] MEDS ORDERED: FLUTISP NARES (10:17)
[2023-05-23] MEDS ORDERED: MAALOX 30 ML SUSP *UDC PO PRN (10:20)
[2023-05-23] MEDS ORDERED: HOME MED LIST COMPLETE! XX SCH (10:20)
[2023-05-23] MEDS ORDERED: MOM 30ML SUSPENSION UDC PO PRN (10:20)
[2023-05-23] MEDS ORDERED: ACETAMINOPHEN TAB 650MG DOSE (2X325MG) PO PRN (10:20)
[2023-05-23] MEDS ORDERED: ALBUTEROL SULFATE 2.5MG/0.5ML INH NEB SOLN NEB PRN (10:35)
[2023-05-23] MEDS: AZITHROMYCIN INJ 500 MG, VIAL MATE ADAPTER 1 EACH in D5W 250 ML IV ONE (10:39)
[2023-05-23] MEDS ORDERED: DEXTROSE 50% 50ML SYRINGE IV PRN (10:45)
[2023-05-23] MEDS ORDERED: GLUCOSE 4GM CHEW TABLET PO PRN (10:45)
[2023-05-23] MEDS ORDERED: GLUCAGON INJ 1MG VIAL SC PRN (10:45)
[2023-05-23] MEDS: DOXYCYCLINE HYCLATE 100MG TABLET PO SCH (12:33)
[2023-05-23] MEDS: PANTOPRAZOLE 40MG TAB (PROTONIX) PO SCH (12:33)
[2023-05-23] MEDS: ENOXAPARIN 40MG/0.4ML SYRINGE (J1650 PER 10MG) SC SCH (12:33)
[2023-05-23] MEDS: predniSONE 20 MG TAB PO SCH (12:33)
[2023-05-23] MEDS: INSULIN LISPRO (NovoLOG) PER UNIT SC SCH ×2 (12:42→21:00)
[2023-05-23 13:27] LABS: HEMOGLOBIN A1c 6.9 % (4.0-6.0)
[2023-05-23 15:42] VITALS: BP 122/62; TEMP 98.6; O2SAT 95
[2023-05-23 16:00] VITALS: O2SAT 95
[2023-05-23] MEDS: FORMOTEROL FUMARATE 20 MCG/2 ML INHALATION SOLUTION (PERFOROMIST) NEB SCH (19:11)
[2023-05-23] MEDS: IPRATROPIUM 0.5MG/ALBUTEROL 2.5MG INH SOL UD 3ML (DUONEB) NEB SCH (19:12)
[2023-05-23 20:40] VITALS: BP 128/74; TEMP 99; O2SAT 90
[2023-05-24 05:10] VITALS: BP 128/82; TEMP 98.1; O2SAT 91
[2023-05-24 06:32] LABS: BASO % 0.2 % (0.0-1.0); EOS % 0.1 % (0.0-3.0); HEMATOCRIT 39.2 % (42.0-52.0); LYMPH # 1.8 10^3/uL (1.5-5.0); LYMPH % 11.1 % (24.0-44.0); MEAN CORPUSCULAR HEMOGLOBIN 29.5 pg (27.0-33.0); MEAN CORPUSCULAR HGB CONC 33.2 g/dl (32.0-36.5); MEAN CORPUSCULAR VOLUME 88.9 fl (80.0-96.0); MONO # 0.9 10^3/uL (0.0-0.8); MONO % 5.6 % (2.0-8.0); NEUTROPHILS # 13.6 10^3/uL (1.5-8.5); NEUTROPHILS % 82.2 % (36.0-66.0); PLATELET COUNT, AUTOMATED 348 10^3/uL (150-450); RED BLOOD COUNT 4.41 10^6/uL (4.30-6.10); WHITE BLOOD COUNT 16.5 10^3/uL (4.0-10.0)
[2023-05-24 07:03] LABS: BLOOD UREA NITROGEN 19 MG/DL (9-23); CALCIUM LEVEL 8.6 MG/DL (8.3-10.6); CARBON DIOXIDE LEVEL 24 MMOL/L (20-31); CHLORIDE LEVEL 111 MMOL/L (98-107); CREATININE FOR GFR 0.93 MG/DL (0.70-1.30); GLOMERULAR FILTRATION RATE > 60.0 (>49); GLUCOSE, FASTING 126 MG/DL (74-106); SODIUM LEVEL 141 MMOL/L (136-145)
[2023-05-24] MEDS: cefTRIAXone SOD 2 GM in D5W MINI-BAG PLUS 50 ML IV SCH (08:22)
[2023-05-24] MEDS ORDERED: CEFD300CAP PO (11:15)
[2023-05-24] MEDS ORDERED: PRED20TA PO (11:15)
[2023-05-24] MEDS ORDERED: DOXY100T PO (11:15)
[2023-05-24] MEDS ORDERED: METF500T13 PO (11:15)
[2023-05-24 17:07] LABS: MYCOPLASMA PNEUMONIAE IgG 184 U/mL (0-99); MYCOPLASMA PNEUMONIAE IgM <770 U/mL (0-769)
[2023-05-26 15:10] LABS: BODY FLUID CULTURE Not indicated. (.); LEGIONELLA ANTIGEN URINE Negative (Negative); ORGANISM ID Not indicated. (.); SPECIMEN SOURCE Urine (.); URINE STREP PNEUMONIAE ANTIGEN Negative (Negative)
== END 2023-05-24 13:21 | disposition home or self-care (01) | DRG 139 ==
LOC: EDBD 02:30 → M ED 02:30 → M ED INP 10:19 → ENRESERV 15:09 → M MSPAV 15:30
PROVIDERS: ADMIT Student in an Organized Health Care Education/Training Program; ATTEND Internal Medicine
DX: J18.9 Pneumonia, unspecified organism (principal); J96.01 Acute respiratory failure with hypoxia; J44.1 Chronic obstructive pulmonary disease with (acute) exacerbation; M10.9 Gout, unspecified; E78.5 Hyperlipidemia, unspecified; I10 Essential (primary) hypertension; Z88.5 Allergy status to narcotic agent; Z79.899 Other long term (current) drug therapy; Z79.82 Long term (current) use of aspirin; K44.9 Diaphragmatic hernia without obstruction or gangrene; E11.9 Type 2 diabetes mellitus without complications

== ENCOUNTER → 2023-06-02 | Outpatient (CLI) | payer OTHER ==
[~2023-06-02] MED LIST changes: +CEFD300CAP PO; +DOXY100T PO; +FLUTISP NARES; +LISI2.5T9 PO; +LORA-1041 PO; +METF500T13 PO; +TOPI100T9 PO
== END ==
LOC: M RAD 11:28
PROVIDERS: ATTEND Internal Medicine Pulmonary Disease
DX: J44.1 Chronic obstructive pulmonary disease with (acute) exacerbation (principal); J98.11 Atelectasis

== ENCOUNTER → 2023-06-10 | Outpatient (REF) | payer OTHER | LOC: M LAB REF 11:22 | PROVIDERS: ATTEND Internal Medicine Pulmonary Disease | DX: J44.0 Chronic obstructive pulmonary disease with (acute) lower respiratory infection (principal) ==

== ENCOUNTER → 2023-06-17 | Outpatient (REF) | payer OTHER | LOC: M LAB REF 12:42 | PROVIDERS: ATTEND Internal Medicine | DX: L03.115 Cellulitis of right lower limb (principal) ==

== ENCOUNTER → 2023-07-03 | Outpatient (CLI) | payer MEDICARE | LOC: M RAD 09:25 | PROVIDERS: ATTEND Internal Medicine Pulmonary Disease | DX: J44.0 Chronic obstructive pulmonary disease with (acute) lower respiratory infection (principal); R91.8 Other nonspecific abnormal finding of lung field ==

== ENCOUNTER → 2023-07-08 | Outpatient (CLI) | payer MEDICARE ==
[~2023-07-08] MED LIST changes: +GASTROGRAFIN SOLUTION 30ML As Ordered ONE; +ISOVUE-370 76% 100ML VIAL As Ordered ONE
== END ==
LOC: M RAD 13:48
PROVIDERS: ATTEND Surgery
DX: K21.9 Gastro-esophageal reflux disease without esophagitis (principal); K44.9 Diaphragmatic hernia without obstruction or gangrene; K76.89 Other specified diseases of liver; N28.1 Cyst of kidney, acquired; K40.20 Bilateral inguinal hernia, without obstruction or gangrene, not specified as recurrent; K57.30 Diverticulosis of large intestine without perforation or abscess without bleeding
CPT/HCPCS: 71260; 74177; Q9963; Q9967

== ENCOUNTER → 2023-07-11 | Outpatient (CLI) | payer MEDICARE ==
[~2023-07-11] MED LIST changes: +E-Z-GAS II EFFERVESCENT PACKET (SODIUM BICARB./CITRIC ACID/SIMETHICONE) As Ordered ONE; +E-Z-HD 98% w/w 340GM SUSP BTL As Ordered ONE; +E-Z-PAQUE 96% w/w SUSP 176GM BTL As Ordered ONE; -GASTROGRAFIN SOLUTION 30ML As Ordered ONE; -ISOVUE-370 76% 100ML VIAL As Ordered ONE
== END ==
LOC: M RAD 08:25
PROVIDERS: ATTEND Surgery
DX: K21.9 Gastro-esophageal reflux disease without esophagitis (principal); K22.89 Other specified disease of esophagus

== ENCOUNTER 2023-07-13 07:39 | Day surgery (SDC) | payer MEDICARE ==
[~2023-07-13] VITALS: Ht 177.8 cm; Wt 86.0 kg
[~2023-07-13 07:39] MED LIST changes: -E-Z-GAS II EFFERVESCENT PACKET (SODIUM BICARB./CITRIC ACID/SIMETHICONE) As Ordered ONE; -E-Z-HD 98% w/w 340GM SUSP BTL As Ordered ONE; -E-Z-PAQUE 96% w/w SUSP 176GM BTL As Ordered ONE; +NS 1,000 ML IV ONE
[2023-07-13] MEDS ORDERED: fentaNYL 100 MCG/2 ML INJECTION As Ordered ONE (09:01)
[2023-07-13] MEDS ORDERED: LIDOCAINE 2% 100MG/5ML SDV (FOR ANES.) As Ordered ONE (09:01)
[2023-07-13] MEDS ORDERED: propofoL 200 MG/20 ML VIAL As Ordered ONE (09:01)
[2023-07-13 09:40] VITALS: BP 140/95; O2SAT 94
== END 2023-07-13 09:52 | disposition home or self-care (01) ==
LOC: M OPP 07:39
PROVIDERS: ATTEND Surgery
DX: K21.00 Gastro-esophageal reflux disease with esophagitis, without bleeding (principal); K44.9 Diaphragmatic hernia without obstruction or gangrene; K29.70 Gastritis, unspecified, without bleeding; K31.89 Other diseases of stomach and duodenum; Z87.891 Personal history of nicotine dependence; Z79.02 Long term (current) use of antithrombotics/antiplatelets; Z79.51 Long term (current) use of inhaled steroids; Z79.52 Long term (current) use of systemic steroids; Z79.82 Long term (current) use of aspirin; Z79.899 Other long term (current) drug therapy; Z88.5 Allergy status to narcotic agent; Z88.8 Allergy status to other drugs, medicaments and biological substances
CPT/HCPCS: 43239; 88305; J3010

== ENCOUNTER 2023-08-23 10:49 | Day surgery (SDC) | payer MEDICARE ==
[~2023-08-23] VITALS: Ht 177.8 cm; Wt 86.2 kg
[~2023-08-23 10:49] MED LIST changes: +GAVICHW5 PO; -NS 1,000 ML IV ONE; +PEPT262C2 PO; +ROSU5TAB40 PO; -ROSU5TAB5 PO
[2023-08-23] MEDS ORDERED: LIDOCAINE VISCOUS 2% SOLN 15ML UDC As Ordered ONE (11:02)
[2023-08-23 11:03] VITALS: BP 173/90; TEMP 97.1; O2SAT 95
== END 2023-08-23 11:24 | disposition home or self-care (01) ==
LOC: M OPP 10:49
PROVIDERS: ATTEND Surgery
DX: K44.9 Diaphragmatic hernia without obstruction or gangrene (principal); Z53.8 Procedure and treatment not carried out for other reasons

== ENCOUNTER → 2023-09-07 | Outpatient (CLI) | payer MEDICARE | LOC: M RAD 14:52 | PROVIDERS: ATTEND Internal Medicine | DX: I31.1 Chronic constrictive pericarditis (principal) ==

== ENCOUNTER 2023-11-03 06:03 | Observation (INO) | payer MEDICARE ==
[~2023-11-03] VITALS: Ht 177.8 cm; Wt 87.2 kg
[2023-11-03] VITALS (9 sets, daily range): BP systolic 115–154; BP diastolic 68–89; TEMP 97.5–98.2; O2SAT 92–96
[~2023-11-03 06:03] MED LIST changes: +BENZ200C70 PO; +TREL1AER INH
[2023-11-03] MEDS ORDERED: LR 1,000 ML IV SCH (06:20)
[2023-11-03] MEDS: ceFAZolin SOD 2 GM in IV 1 EA IV ONE (07:34)
[2023-11-03] MEDS ORDERED: BENZ200C70 PO (07:47)
[2023-11-03] MEDS ORDERED: TIZA10TA PO (07:47)
[2023-11-03] MEDS ORDERED: HOME MED LIST COMPLETE! XX SCH (07:50)
[2023-11-03] MEDS ORDERED: MIDAZOLAM INJ 2MG/2ML VIAL As Ordered ONE (07:56)
[2023-11-03] MEDS ORDERED: ROCURONIUM BROMIDE 50MG/5ML VIAL As Ordered ONE (07:56)
[2023-11-03] MEDS ORDERED: VECURONIUM BROMIDE 10MG VIAL As Ordered ONE (07:56)
[2023-11-03] MEDS ORDERED: KETOROLAC 60MG 2ML VIAL As Ordered ONE (07:56)
[2023-11-03] MEDS ORDERED: propofoL 200 MG/20 ML VIAL As Ordered ONE (07:56)
[2023-11-03] MEDS ORDERED: fentaNYL 100 MCG/2 ML INJECTION As Ordered ONE (07:56)
[2023-11-03] MEDS ORDERED: ONDANSETRON 4MG 2ML VIAL As Ordered ONE (07:56)
[2023-11-03] MEDS ORDERED: SUGAMMADEX SODIUM 500 MG/5 ML VIAL (BRIDION) As Ordered ONE (07:56)
[2023-11-03] MEDS ORDERED: LIDOCAINE 2% 100MG/5ML SDV (FOR ANES.) As Ordered ONE (07:56)
[2023-11-03] MEDS ORDERED: ACETAMINOPHEN 1000MG 100ML IV BAG As Ordered ONE (08:05)
[2023-11-03] MEDS ORDERED: dexmedeTOMIDine (4MCG/ML)200MCG/50ML BTL (PRECEDEX) As Ordered ONE (08:10)
[2023-11-03] MEDS ORDERED: hydrALAZINE 20MG/ML 1ML VIAL As Ordered ONE (08:19)
[2023-11-03] MEDS ORDERED: LABETALOL 100MG/20ML VIAL As Ordered ONE (08:26)
[2023-11-03] MEDS ORDERED: VITA400T26 PO (09:41)
[2023-11-03] MEDS ORDERED: oxyCODONE 5MG TAB PO PRN (11:25)
[2023-11-03] MEDS ORDERED: fentaNYL 100 MCG/2 ML INJECTION IV PRN (11:25)
[2023-11-03] MEDS ORDERED: ONDANSETRON 4MG 2ML VIAL IV PRN ×2 (11:25→11:50)
[2023-11-03] MEDS: LR 1,000 ML IV SCH (11:25)
[2023-11-03] MEDS ORDERED: HYDROMORPHONE HCL 0.5 MG/ 0.5 ML SYRINGE IV PRN (11:25)
[2023-11-03] MEDS ORDERED: FLUTICASONE PROP 0.05% NASAL SPRAY 16 GM (FLONASE) NARES PRN (12:00)
[2023-11-03 13:00] LABS: BASO % 0.1 % (0.0-1.0); EOS % 0.1 % (0.0-3.0); HEMOGLOBIN 14.3 g/dl (13.5-17.5); LYMPH # 0.6 10^3/uL (1.5-5.0); LYMPH % 3.8 % (24.0-44.0); MEAN CORPUSCULAR HEMOGLOBIN 28.4 pg (27.0-33.0); MEAN CORPUSCULAR HGB CONC 32.5 g/dl (32.0-36.5); MEAN CORPUSCULAR VOLUME 87.5 fl (80.0-96.0); MONO # 0.3 10^3/uL (0.0-0.8); MONO % 1.9 % (2.0-8.0); NEUTROPHILS % 93.7 % (36.0-66.0); PLATELET COUNT, AUTOMATED 340 10^3/uL (150-450); RED BLOOD COUNT 5.03 10^6/uL (4.30-6.10); WHITE BLOOD COUNT 14.9 10^3/uL (4.0-10.0)
[2023-11-03 13:12] LABS: ALBUMIN 3.5 G/DL (3.2-5.2); ALKALINE PHOSPHATASE 132 U/L (46-116); ALT/SGPT 89 U/L (7.0-40); AST/SGOT 69 U/L (<34); BILIRUBIN,TOTAL 0.2 MG/DL (0.3-1.2); BLOOD UREA NITROGEN 20 MG/DL (9-23); CALCIUM LEVEL 8.8 MG/DL (8.3-10.6); CARBON DIOXIDE LEVEL 23 MMOL/L (20-31); CHLORIDE LEVEL 110 MMOL/L (98-107); CREATININE FOR GFR 1.15 MG/DL (0.70-1.30); GLOMERULAR FILTRATION RATE > 60.0 (>49); GLUCOSE, FASTING 185 MG/DL (74-106); POTASSIUM SERUM 4.4 MMOL/L (3.5-5.1); SODIUM LEVEL 138 MMOL/L (136-145); TOTAL PROTEIN 6.3 G/DL (5.7-8.2)
[2023-11-03] MEDS: KCL 20MEQ IN D5/0.45NS 1000ML 1,000 ML IV SCH (13:16)
[2023-11-03] MEDS ORDERED: FLUT1BLS8 IH (14:34)
[2023-11-03] MEDS: ACETAMINOPHEN 500 MG TAB PO SCH (16:41)
[2023-11-03] MEDS: SUCRALFATE SUSP 1GM/10ML UD PO SCH (17:39)
[2023-11-03] MEDS: METOPROLOL TART 12.5 MG PER 1/2 TAB PO SCH (20:20)
[2023-11-03] MEDS: BENZONATATE 100MG CAPSULE PO SCH (20:21)
[2023-11-03] MEDS: TOPIRAMATE (TopAMAX) 100 MG TAB PO SCH (20:21)
[2023-11-03] MEDS: AMITRIPTYLINE 50 MG TAB PO SCH (20:21)
[2023-11-03] MEDS: tiZANidine 4 MG TAB PO SCH (20:22)
[2023-11-03] MEDS: SENOKOT S TAB PO SCH (20:22)
[2023-11-03] MEDS: LORATADINE 10 MG TAB PO SCH (20:23)
[2023-11-03] MEDS: MECLIZINE 25 MG TABLET PO SCH (20:23)
[2023-11-03] MEDS: CYANOCOBALAMIN 500 MCG TAB PO SCH (20:25)
[2023-11-03] MEDS: oxyCODONE 5MG TAB PO PRN (20:40)
[2023-11-03] MEDS ORDERED: SUCRALFATE 1 GM TAB PO SCH (21:00)
[2023-11-04] MEDS: UNRESOLVED PATIENT OWN MED ORDER XX SCH (00:01)
[2023-11-04 01:53] VITALS: BP 114/70; TEMP 98.2; O2SAT 91
[2023-11-04 05:48] VITALS: BP 143/89; TEMP 98.1; O2SAT 93
[2023-11-04 07:57] LABS: BASO % 0.1 % (0.0-1.0); EOS % 0.3 % (0.0-3.0); HEMATOCRIT 42.2 % (42.0-52.0); HEMOGLOBIN 13.5 g/dl (13.5-17.5); LYMPH # 1.2 10^3/uL (1.5-5.0); MEAN CORPUSCULAR HEMOGLOBIN 28.1 pg (27.0-33.0); MEAN CORPUSCULAR VOLUME 87.7 fl (80.0-96.0); MONO # 0.8 10^3/uL (0.0-0.8); MONO % 6.6 % (2.0-8.0); NEUTROPHILS # 9.9 10^3/uL (1.5-8.5); NEUTROPHILS % 82.6 % (36.0-66.0); PLATELET COUNT, AUTOMATED 310 10^3/uL (150-450); RED BLOOD COUNT 4.81 10^6/uL (4.30-6.10); WHITE BLOOD COUNT 12.1 10^3/uL (4.0-10.0)
[2023-11-04] MEDS ORDERED: TRELEGY ELLIPTA INH SCH (08:00)
[2023-11-04] MEDS ORDERED: PERCOCET PO (08:09)
[2023-11-04] MEDS ORDERED: REGL10TA6 PO (08:09)
[2023-11-04] MEDS ORDERED: SIME180C25 PO (08:09)
[2023-11-04 08:11] LABS: ALBUMIN 3.3 G/DL (3.2-5.2); ALKALINE PHOSPHATASE 117 U/L (46-116); ALT/SGPT 169 U/L (7.0-40); AST/SGOT 150 U/L (<34); BILIRUBIN,TOTAL 0.4 MG/DL (0.3-1.2); BLOOD UREA NITROGEN 17 MG/DL (9-23); CALCIUM LEVEL 8.7 MG/DL (8.3-10.6); CARBON DIOXIDE LEVEL 26 MMOL/L (20-31); CHLORIDE LEVEL 110 MMOL/L (98-107); CREATININE FOR GFR 1.02 MG/DL (0.70-1.30); GLOMERULAR FILTRATION RATE > 60.0 (>49); GLUCOSE, FASTING 134 MG/DL (74-106); MAGNESIUM LEVEL 1.9 MG/DL (1.8-2.4); POTASSIUM SERUM 3.8 MMOL/L (3.5-5.1); SODIUM LEVEL 139 MMOL/L (136-145); TOTAL PROTEIN 5.9 G/DL (5.7-8.2)
[2023-11-04] MEDS: SERTRALINE HCL 50 MG TAB PO SCH (08:23)
[2023-11-04] MEDS: ENOXAPARIN 40MG/0.4ML SYRINGE (J1650 PER 10MG) SC SCH (08:23)
[2023-11-04 08:24] VITALS: BP 147/90
[2023-11-04] MEDS: ROSUVASTATIN 10 MG TAB (CRESTOR) PO SCH (08:24)
[2023-11-04] MEDS: ASPIRIN 81MG ENTERIC TABLET PO SCH (08:24)
== END 2023-11-04 10:28 | disposition home or self-care (01) ==
LOC: INTOOBSV 06:03 → M OR 06:03 → M MS5PR 12:35
PROVIDERS: ADMIT Surgery; ATTEND Surgery
DX: K44.0 Diaphragmatic hernia with obstruction, without gangrene (principal); R06.89 Other abnormalities of breathing; K21.9 Gastro-esophageal reflux disease without esophagitis; J44.9 Chronic obstructive pulmonary disease, unspecified; I10 Essential (primary) hypertension; F41.9 Anxiety disorder, unspecified; F32.A Depression, unspecified; I48.0 Paroxysmal atrial fibrillation; E11.9 Type 2 diabetes mellitus without complications; J69.0 Pneumonitis due to inhalation of food and vomit; M19.90 Unspecified osteoarthritis, unspecified site; Z87.19 Personal history of other diseases of the digestive system; Z87.891 Personal history of nicotine dependence; Z88.5 Allergy status to narcotic agent; Z88.8 Allergy status to other drugs, medicaments and biological substances; Z79.899 Other long term (current) drug therapy; Z79.82 Long term (current) use of aspirin; Z79.51 Long term (current) use of inhaled steroids
CPT/HCPCS: 36415; 43281; 80053; 83735; 85025; 96372; G0378; J0131; J0360; J0665; J0690; J1100; J1650; J1885; J1920; J2250; J2405; J3010; S2900

== ENCOUNTER → 2024-04-09 | Outpatient (CLI) | payer MEDICARE ==
[~2024-04-09] MED LIST changes: +FLUT1BLS8 IH; +PERCOCET PO; +REGL10TA6 PO; -ROSU5TAB40 PO; +ROSU5TAB49 PO; +SIME1CAP4 PO; +VITA400T26 PO
== END ==
LOC: M RAD 09:45 → M PLALAB 09:45
PROVIDERS: ATTEND Internal Medicine Pulmonary Disease
DX: J44.0 Chronic obstructive pulmonary disease with (acute) lower respiratory infection (principal)

== ENCOUNTER → 2024-05-16 | Outpatient (CLI) | payer MEDICARE ==
[~2024-05-16] MED LIST changes: +E-Z-GAS II EFFERVESCENT PACKET (SODIUM BICARB./CITRIC ACID/SIMETHICONE) As Ordered ONE; +E-Z-HD 98% w/w 340GM SUSP BTL As Ordered ONE; +E-Z-PAQUE 96% w/w SUSP 176GM BTL As Ordered ONE
== END ==
LOC: M RAD 10:32
PROVIDERS: ATTEND Surgery
DX: K44.9 Diaphragmatic hernia without obstruction or gangrene (principal); R13.10 Dysphagia, unspecified; R10.13 Epigastric pain; J39.2 Other diseases of pharynx; K22.89 Other specified disease of esophagus

== ENCOUNTER 2024-06-29 08:22 | Observation (INO) | payer MEDICARE ==
[~2024-06-29] VITALS: Ht 172.7 cm; Wt 83.6 kg
[~2024-06-29 08:22] MED LIST changes: +BREO1INH3; -E-Z-GAS II EFFERVESCENT PACKET (SODIUM BICARB./CITRIC ACID/SIMETHICONE) As Ordered ONE; -E-Z-HD 98% w/w 340GM SUSP BTL As Ordered ONE; -E-Z-PAQUE 96% w/w SUSP 176GM BTL As Ordered ONE; +TREL1AER IN; +VITA50TA6 PO
[2024-06-29 08:54] LABS: VENOUS BASE EXCESS -2.7 (-2.0-2.0); VENOUS HCO3 24.5 MMOL/L (23.0-27.0); VENOUS O2 SATURATION 42.8 % (60.0-80.0); VENOUS PARTIAL PRESSURE CO2 51.6 mmHg (38.0-50.0); VENOUS PH 7.294 UNITS (7.330-7.430); VENOUS STANDARD HCO3 20.9 MMOL/L; VENOUS TOTAL CO2 26.1 MMOL/L (24.0-28.0)
[2024-06-29] MEDS: NS 500 ML IV ONE (09:00)
[2024-06-29 09:06] LABS: KETONE, URINE AUTO RFX NEGATIVE (NEGATIVE); LEUKOCYTE ESTERASE UR AUTO RFX NEGATIVE (NEGATIVE); NITRITE, URINE AUTO RFX NEGATIVE (NEGATIVE); RBC, URINE AUTO RFX 1 /HPF (0-3); SQUAM EPITHELIAL CELL UR AURFX 0 /HPF (0-6); WBC, URINE AUTO RFX 0 /HPF (0-3)
[2024-06-29] MEDS ORDERED: ISOVUE-370 76% 100ML VIAL As Ordered ONE (09:11)
[2024-06-29 09:13] LABS: INR 0.95; PARTIAL THROMBOPLASTIN TIME 25.2 SECONDS (24.8-34.2)
[2024-06-29 09:28] LABS: CK-MB VALUE MASS 3.2 NG/ML (<3.6); ETHYL ALCOHOL (ETHANOL) < 0.003 % (0.000-0.010); LIPASE 22 U/L (12-53)
[2024-06-29 09:29] LABS: AMYLASE 31 U/L (30-118); CPK CREATINE PHOSPHOKINASE 127 U/L (46-171); MB/CK RELATIVE INDEX 2.51 (< OR =4); SALICYLATE LEVEL < 3.0 MG/DL (<30)
[2024-06-29 09:30] LABS: ALBUMIN 3.5 G/DL (3.2-5.2); ALKALINE PHOSPHATASE 134 U/L (40-129); ALT/SGPT 79 U/L (7.0-40); AST/SGOT 30 U/L (<34); BILIRUBIN,DIRECT 0.1 MG/DL (<0.4); BILIRUBIN,TOTAL 0.3 MG/DL (0.3-1.2); BLOOD UREA NITROGEN 21 MG/DL (9-23); CARBON DIOXIDE LEVEL 27 MMOL/L (20-31); CHLORIDE LEVEL 107 MMOL/L (98-107); CREATININE FOR GFR 1.05 MG/DL (0.70-1.30); GLOMERULAR FILTRATION RATE 78.3 (>49); GLUCOSE, FASTING 142 MG/DL (74-106); POTASSIUM SERUM 4.9 MMOL/L (3.5-5.1); SODIUM LEVEL 139 MMOL/L (136-145); TOTAL PROTEIN 6.4 G/DL (5.7-8.2)
[2024-06-29 09:31] LABS: THYROID STIMULATING HORMONE 4.558 uIU/ML (0.55-4.78)
[2024-06-29 09:35] LABS: BASO # 0.1 10^3/uL (0.0-0.2); BASO % 0.5 % (0.0-1.0); EOS # 0.2 10^3/uL (0.0-0.5); EOS % 1.9 % (0.0-3.0); HEMATOCRIT 45.7 % (42.0-52.0); HEMOGLOBIN 14.5 g/dl (13.5-17.5); LYMPH # 1.9 10^3/uL (1.5-5.0); LYMPH % 16.9 % (24.0-44.0); MEAN CORPUSCULAR HEMOGLOBIN 29.6 pg (27.0-33.0); MEAN CORPUSCULAR HGB CONC 31.7 g/dl (32.0-36.5); MEAN CORPUSCULAR VOLUME 93.3 fl (80.0-96.0); MONO # 0.9 10^3/uL (0.0-0.8); MONO % 7.8 % (2.0-8.0); NEUTROPHILS # 7.9 10^3/uL (1.5-8.5); NEUTROPHILS % 72.3 % (36.0-66.0); PLATELET COUNT, AUTOMATED 297 10^3/uL (150-450)
[2024-06-29 09:38] LABS: AMPHETAMINES LEVEL URINE NEGATIVE (NEGATIVE); BARBITURATES URINE NEGATIVE (NEGATIVE); BENZODIAZEPINES URINE NEGATIVE (NEGATIVE); COCAINE METABOLITE URINE NEGATIVE (NEGATIVE); METHADONE URINE NEGATIVE (NEGATIVE); OPIATES URINE NEGATIVE (NEGATIVE); PHENCYCLIDINE URINE NEGATIVE (NEGATIVE)
[2024-06-29 09:46] LABS: CANNABINOIDS URINE POSITIVE (NEGATIVE)
[2024-06-29] MEDS: IPRATROPIUM 0.5MG/ALBUTEROL 2.5MG INH SOL UD 3ML NEB ONE (09:54)
[2024-06-29] MEDS: ALBUTEROL SULFATE 2.5MG/0.5ML INH CONCENTRATE NEB SOLN INH ONE (09:55)
[2024-06-29] MEDS: methylPREDNISolone 125MG 2ML VIAL IV ONE (09:59)
[2024-06-29 10:14] LABS: ABG BASE EXCESS -4.4 (-2.0-2.0); ABG HCO3 20.3 MMOL/L (22.0-26.0); ABG O2 SATURATION 97.3 % (95.0-99.0); ABG PARTIAL PRESSURE CO2 36.1 mmHg (35.0-45.0); ABG PARTIAL PRESSURE O2 114.3 mmHg (75.0-100.0); ABG STANDARD HCO3 20.9 MMOL/L. (22.0-26.0); ABG TOTAL CO2 21.4 MMOL/L (23.0-31.0); ABG pH (ARTERIAL) 7.367 UNITS (7.350-7.450)
[2024-06-29 10:39] LABS: MB/CK RELATIVE INDEX 1.51 (< OR =4)
[2024-06-29] MEDS ORDERED: FLUT1BLS8 INH (11:14)
[2024-06-29] MEDS ORDERED: HOME MED LIST COMPLETE! XX SCH (11:25)
[2024-06-29] MEDS ORDERED: ALBU2.5V10 NEB (11:27)
[2024-06-29] MEDS ORDERED: ALBUTEROL SULFATE 2.5MG/0.5ML INH CONCENTRATE NEB SOLN NEB PRN (13:00)
[2024-06-29] MEDS ORDERED: ONDANSETRON 4MG 2ML VIAL IV PRN (13:25)
[2024-06-29 17:14] VITALS: BP 143/87; TEMP 98.2; O2SAT 97
[2024-06-29 19:59] VITALS: BP 131/83; TEMP 98; O2SAT 93
[2024-06-29 20:00] VITALS: BP 131/83; PULSE 92; TEMP 98; O2SAT 93
[2024-06-29] MEDS: ADVAIR HFA 230/21MCG INHALER INH SCH (20:06)
[2024-06-29 20:35] VITALS: BP 125/82
[2024-06-29] MEDS: AMITRIPTYLINE 50 MG TAB PO SCH (21:21)
[2024-06-29] MEDS: PANTOPRAZOLE 40MG VIAL IV SCH (21:21)
[2024-06-29] MEDS: METOPROLOL TART 12.5 MG PER 1/2 TAB PO SCH (21:22)
[2024-06-29] MEDS: TOPIRAMATE (TopAMAX) 100 MG TAB PO SCH (21:30)
[2024-06-30] VITALS (9 sets, daily range): BP systolic 113–129; BP diastolic 74–88; PULSE 87–92; TEMP 97.6–98.9; O2SAT 92–94
[2024-06-30 07:20] LABS: BASO % 0.2 % (0.0-1.0); EOS % 0.2 % (0.0-3.0); HEMATOCRIT 43.1 % (42.0-52.0); HEMOGLOBIN 14.2 g/dl (13.5-17.5); LYMPH % 10.5 % (24.0-44.0); MEAN CORPUSCULAR HEMOGLOBIN 29.6 pg (27.0-33.0); MEAN CORPUSCULAR HGB CONC 32.9 g/dl (32.0-36.5); MEAN CORPUSCULAR VOLUME 89.8 fl (80.0-96.0); MONO # 1.5 10^3/uL (0.0-0.8); NEUTROPHILS # 15.4 10^3/uL (1.5-8.5); NEUTROPHILS % 80.4 % (36.0-66.0); PLATELET COUNT, AUTOMATED 332 10^3/uL (150-450); WHITE BLOOD COUNT 19.1 10^3/uL (4.0-10.0)
[2024-06-30 07:34] LABS: POTASSIUM SERUM 4.3 MMOL/L (3.5-5.1)
[2024-06-30] MEDS ORDERED: PILL CUTTER 1 EACH XX PRN (07:40)
[2024-06-30] MEDS: TIOTROPIUM BROM 2.5MCG/ACTUATION 4GM INH IH SCH (07:52)
[2024-06-30] MEDS: SERTRALINE HCL 50 MG TAB PO SCH (09:36)
[2024-06-30] MEDS: COLCHICINE 0.6 MG TABLET PO SCH (09:36)
[2024-06-30] MEDS: ROSUVASTATIN 10 MG TAB (CRESTOR) PO SCH (09:36)
[2024-06-30] MEDS ORDERED: MITI1CAP PO (10:45)
[2024-06-30] MEDS ORDERED: LORATADINE 10 MG TAB PO SCH (21:00)
== END 2024-06-30 13:16 | disposition home or self-care (01) ==
LOC: EDBD 08:22 → M ED 08:22 → M ED INP 08:23 → M PCU 16:53
PROVIDERS: ADMIT Internal Medicine Nephrology; ATTEND Internal Medicine Nephrology
DX: R55 Syncope and collapse (principal); R10.11 Right upper quadrant pain; R10.13 Epigastric pain; K44.9 Diaphragmatic hernia without obstruction or gangrene; K21.9 Gastro-esophageal reflux disease without esophagitis; I48.0 Paroxysmal atrial fibrillation; I50.30 Unspecified diastolic (congestive) heart failure; E11.9 Type 2 diabetes mellitus without complications; J44.9 Chronic obstructive pulmonary disease, unspecified; J39.2 Other diseases of pharynx; K85.90 Acute pancreatitis without necrosis or infection, unspecified; F41.9 Anxiety disorder, unspecified; F32.A Depression, unspecified; M47.896 Other spondylosis, lumbar region; M48.02 Spinal stenosis, cervical region; I73.00 Raynaud's syndrome without gangrene; L71.1 Rhinophyma; Z79.82 Long term (current) use of aspirin; Z79.899 Other long term (current) drug therapy; Z88.8 Allergy status to other drugs, medicaments and biological substances; Z88.5 Allergy status to narcotic agent
CPT/HCPCS: 36415; 36600; 70450; 71045; 71275; 74174; 76705; 80047; 80048; 80076; 80143; 80307; 81001; 82077; 82140; 82150; 82550; 82553; 82803; 83605; 83690; 84443; 84484; 85025; 85610; 85730; 86850; 86900; 86901; 87040; 87486; 87581; 87633; 87798; 93005; 93041; 94640; 96374; 96375; 96376; 99285; G0378; J2470; J2919; Q9967

== ENCOUNTER 2024-07-05 05:59 | Inpatient (IN) | payer MEDICARE ==
[~2024-07-05] VITALS: Ht 177.8 cm; Wt 82.5 kg
[2024-07-05] VITALS (11 sets, daily range): BP systolic 136–148; BP diastolic 89–96; TEMP 97.9–98.2; O2SAT 87–97
[~2024-07-05 05:59] MED LIST changes: +ALBU2.5V10 NEB; +FLUT1BLS8 INH
[2024-07-05] MEDS: LR 1,000 ML IV SCH (07:21)
[2024-07-05] MEDS: ceFAZolin SOD 2 GM IV ONCE IV ONE (07:41)
[2024-07-05] MEDS ORDERED: LIDOCAINE 2% 100MG/5ML SDV (FOR ANES.) As Ordered ONE (07:42)
[2024-07-05] MEDS ORDERED: SUGAMMADEX SODIUM 500 MG/5 ML VIAL (BRIDION) As Ordered ONE (07:42)
[2024-07-05] MEDS ORDERED: ONDANSETRON 4MG 2ML VIAL As Ordered ONE (07:42)
[2024-07-05] MEDS ORDERED: KETOROLAC 30 MG/ML 1ML VIAL As Ordered ONE (07:42)
[2024-07-05] MEDS ORDERED: propofoL 200 MG/20 ML VIAL As Ordered ONE (07:42)
[2024-07-05] MEDS ORDERED: ROCURONIUM BROMIDE 50MG/5ML VIAL As Ordered ONE (07:42)
[2024-07-05] MEDS ORDERED: MIDAZOLAM INJ 2MG/2ML VIAL As Ordered ONE (07:42)
[2024-07-05] MEDS ORDERED: METOCLOPRAMIDE INJ 10MG/2ML VIAL As Ordered ONE (07:42)
[2024-07-05] MEDS ORDERED: HYDROmorphone HCL 2MG/ML 1ML VIAL As Ordered ONE (07:42)
[2024-07-05] MEDS ORDERED: fentaNYL 250 MCG/5 ML INJECTION As Ordered ONE (07:42)
[2024-07-05] MEDS ORDERED: MECL-209 PO (07:48)
[2024-07-05] MEDS ORDERED: COLC0.6T47 PO (07:48)
[2024-07-05] MEDS ORDERED: TIZA10TA PO (07:48)
[2024-07-05] MEDS ORDERED: HOME MED LIST COMPLETE! XX SCH (07:50)
[2024-07-05] MEDS: HEPARIN SOD (PORCINE) 5000UNITS/ML 1ML VIAL/SYRINGE SQ ONE (07:54)
[2024-07-05] MEDS ORDERED: ePHEDrine SULFATE 25 MG/5 ML(5MG/ML) SYRINGE As Ordered ONE (08:08)
[2024-07-05] MEDS ORDERED: PHENYLephrine 500MCG 5ML (100MCG/ML) SYRINGE As Ordered ONE (08:08)
[2024-07-05] MEDS ORDERED: dexmedeTOMIDine (4MCG/ML)200MCG/50ML BTL (PRECEDEX) As Ordered ONE (08:15)
[2024-07-05] MEDS ORDERED: LABETALOL 100MG/20ML VIAL As Ordered ONE (08:22)
[2024-07-05] MEDS ORDERED: ALBUTEROL 6.7GM INHALER **FOR ANES. CART/OMNICELL ONLY As Ordered ONE (09:24)
[2024-07-05] MEDS: ceFAZolin SODIUM 2 GM VIAL As Ordered ONE (11:21)
[2024-07-05] MEDS: BUPivacaine LIPOSOME/PF 266MG 20ML VIAL (13.3MG/ML)(EXPAREL) As Ordered ONE (12:38)
[2024-07-05] MEDS ORDERED: ONDANSETRON 4MG 2ML VIAL IV PRN (12:50)
[2024-07-05] MEDS ORDERED: fentaNYL 100 MCG/2 ML INJECTION IV PRN (12:50)
[2024-07-05] MEDS ORDERED: fentaNYL 100 MCG/2 ML INJECTION As Ordered ONE (13:01)
[2024-07-05] MEDS ORDERED: MECLIZINE 25 MG TABLET PO PRN (13:10)
[2024-07-05] MEDS ORDERED: ALBUTEROL SULFATE 2.5MG/0.5ML INH CONCENTRATE NEB SOLN NEB PRN (13:10)
[2024-07-05] MEDS ORDERED: SEVOFLURANE INHAL SOLN 250 ML BTL As Ordered ONE (13:19)
[2024-07-05] MEDS: ACETAMINOPHEN *IV* 1,000 MG in IV 1 EA IV ONE (13:26)
[2024-07-05] MEDS: HYDROMORPHONE HCL 0.5 MG/ 0.5 ML SYRINGE IV PRN (13:26)
[2024-07-05] MEDS: LABETALOL 100MG/20ML VIAL IV PRN (13:31)
[2024-07-05] MEDS: METOPROLOL TART 12.5 MG PER 1/2 TAB PO ONE (14:11)
[2024-07-05] MEDS: oxyCODONE 5MG TAB PO PRN ×2 (14:11→17:56)
[2024-07-05] MEDS: methocarbamoL 750 MG TAB PO PRN (14:37)
[2024-07-05] MEDS ORDERED: hydrALAZINE 20MG/ML 1ML VIAL As Ordered ONE (14:40)
[2024-07-05] MEDS: hydrALAZINE 20MG/ML 1ML VIAL IV PRN (14:42)
[2024-07-05] MEDS ORDERED: PILL CUTTER 1 EACH XX PRN (15:50)
[2024-07-05] MEDS: tiZANidine 4 MG TAB PO PRN (18:52)
[2024-07-05] MEDS: ACETAMINOPHEN *IV* 1,000 MG in IV 1 EA IV SCH (20:53)
[2024-07-05] MEDS: MECLIZINE 25 MG TABLET PO SCH (20:54)
[2024-07-05] MEDS: AMITRIPTYLINE 50 MG TAB PO SCH (20:54)
[2024-07-05] MEDS: TOPIRAMATE (TopAMAX) 100 MG TAB PO SCH (20:54)
[2024-07-05] MEDS: LORATADINE 10 MG TAB PO SCH (20:54)
[2024-07-05] MEDS: METOPROLOL TART 12.5 MG PER 1/2 TAB PO SCH (20:54)
[2024-07-05] MEDS ORDERED: NITROGLYCERIN 0.4MG SUBL TABLET SL PRN (21:35)
[2024-07-05] MEDS: tiZANidine 4 MG TAB PO SCH (21:54)
[2024-07-06 00:32] VITALS: BP 96/60; TEMP 98.6; O2SAT 93
[2024-07-06] MEDS: NS (Normal Saline) 0.9% 1,000 ML IV ONE (01:12)
[2024-07-06 01:20] LABS: HEMATOCRIT 38.2 % (42.0-52.0); HEMOGLOBIN 12.7 g/dl (13.5-17.5); MEAN CORPUSCULAR HEMOGLOBIN 30.1 pg (27.0-33.0); MEAN CORPUSCULAR HGB CONC 33.2 g/dl (32.0-36.5); MEAN CORPUSCULAR VOLUME 90.5 fl (80.0-96.0); PLATELET COUNT, AUTOMATED 272 10^3/uL (150-450); RED BLOOD COUNT 4.22 10^6/uL (4.30-6.10); WHITE BLOOD COUNT 12.6 10^3/uL (4.0-10.0)
[2024-07-06 01:44] LABS: ALBUMIN 2.9 G/DL (3.2-5.2); BILIRUBIN,TOTAL 0.4 MG/DL (0.3-1.2); CALCIUM LEVEL 7.7 MG/DL (8.3-10.6); CREATININE FOR GFR 1.07 MG/DL (0.70-1.30); GLOMERULAR FILTRATION RATE 76.5 (>49); POTASSIUM SERUM 4.1 MMOL/L (3.5-5.1); TOTAL PROTEIN 5.3 G/DL (5.7-8.2)
[2024-07-06 02:15] VITALS: BP 100/64; TEMP 97.9; O2SAT 94
[2024-07-06 05:34] VITALS: BP 107/68; TEMP 97.9; O2SAT 92
[2024-07-06] MEDS: oxyCODONE 5MG TAB PO ONE (07:37)
[2024-07-06] MEDS: ROSUVASTATIN 10 MG TAB (CRESTOR) PO SCH (07:39)
[2024-07-06] MEDS: SERTRALINE HCL 50 MG TAB PO SCH (07:39)
[2024-07-06] MEDS: NS 500 ML IV ONE (07:42)
[2024-07-06 07:54] VITALS: BP 133/84; TEMP 98.1; O2SAT 90
[2024-07-06 07:54] LABS: CK-MB VALUE MASS 3.6 NG/ML (<3.6)
[2024-07-06 07:57] LABS: MB/CK RELATIVE INDEX 1.71 (< OR =4)
[2024-07-06] MEDS: PANTOPRAZOLE 40MG VIAL IV ONE (08:52)
[2024-07-06 12:00] VITALS: BP 133/83; TEMP 97.9; O2SAT 90
[2024-07-06] MEDS ORDERED: OXYC-517 PO (13:38)
[2024-07-06] MEDS ORDERED: SENO17.2 PO (13:43)
[2024-07-06 14:04] VITALS: O2SAT 90
[2024-07-07] MEDS ORDERED: KETO10TAB PO (17:53)
[2024-07-10] MEDS ORDERED: CYANOCOBALAMIN 500 MCG TAB PO SCH (09:00)
[2024-07-10] MEDS ORDERED: PYRIDOXINE 50 MG TAB PO SCH (09:00)
== END 2024-07-06 14:31 | disposition home or self-care (01) | DRG 328 ==
LOC: M OR 05:59 → M MSPAV 15:33
PROVIDERS: ADMIT Surgery; ATTEND Surgery
PROC: 8E0W4CZ Robotic Assisted Procedure of Trunk Region, Percutaneous Endoscopic Approach (ICD-10-PCS; 2024-07-05)
PROC: 0DS64ZZ Reposition Stomach, Percutaneous Endoscopic Approach (ICD-10-PCS; principal; 2024-07-05 07:30)
DX: K44.9 Diaphragmatic hernia without obstruction or gangrene (principal); I10 Essential (primary) hypertension; J44.9 Chronic obstructive pulmonary disease, unspecified; E11.9 Type 2 diabetes mellitus without complications; K21.9 Gastro-esophageal reflux disease without esophagitis; K66.0 Peritoneal adhesions (postprocedural) (postinfection); M47.816 Spondylosis without myelopathy or radiculopathy, lumbar region; M47.812 Spondylosis without myelopathy or radiculopathy, cervical region; G47.33 Obstructive sleep apnea (adult) (pediatric); I73.00 Raynaud's syndrome without gangrene; F32.A Depression, unspecified; F41.9 Anxiety disorder, unspecified; Z88.5 Allergy status to narcotic agent; Z88.8 Allergy status to other drugs, medicaments and biological substances; Z79.899 Other long term (current) drug therapy; Z79.82 Long term (current) use of aspirin; I48.0 Paroxysmal atrial fibrillation; R13.10 Dysphagia, unspecified

== ENCOUNTER 2024-07-07 09:53 | Emergency (ER) | payer MEDICARE ==
[~2024-07-07] VITALS: Ht 177.8 cm; Wt 82.6 kg
[~2024-07-07 09:53] MED LIST changes: +MECL-209 PO; +OXYC-517 PO; +SENO17.2 PO
[2024-07-07 10:33] LABS: BASO % 0.4 % (0.0-1.0); EOS # 0.2 10^3/uL (0.0-0.5); EOS % 2.1 % (0.0-3.0); HEMATOCRIT 44.3 % (42.0-52.0); HEMOGLOBIN 14.3 g/dl (13.5-17.5); LYMPH # 1.3 10^3/uL (1.5-5.0); LYMPH % 12.4 % (24.0-44.0); MEAN CORPUSCULAR HGB CONC 32.3 g/dl (32.0-36.5); MEAN CORPUSCULAR VOLUME 92.9 fl (80.0-96.0); MONO # 0.8 10^3/uL (0.0-0.8); MONO % 7.3 % (2.0-8.0); NEUTROPHILS % 77.4 % (36.0-66.0); PLATELET COUNT, AUTOMATED 294 10^3/uL (150-450); RED BLOOD COUNT 4.77 10^6/uL (4.30-6.10); WHITE BLOOD COUNT 10.4 10^3/uL (4.0-10.0)
[2024-07-07 11:05] LABS: CALCIUM LEVEL 8.6 MG/DL (8.3-10.6); CREATININE FOR GFR 0.96 MG/DL (0.70-1.30); GLOMERULAR FILTRATION RATE 87.2 (>49)
[2024-07-07] MEDS ORDERED: ISOVUE-370 76% 100ML VIAL As Ordered ONE (12:54)
[2024-07-07 13:11] LABS: CK-MB VALUE MASS 1.2 NG/ML (<3.6)
[2024-07-07 13:12] LABS: MB/CK RELATIVE INDEX 0.76 (< OR =4)
[2024-07-07 13:18] LABS: INR 0.97; PROTHROMBIN TIME 13.2 SECONDS (12.5-14.5)
[2024-07-07 13:27] LABS: CK-MB VALUE MASS 1.1 NG/ML (<3.6)
[2024-07-07 13:29] LABS: MB/CK RELATIVE INDEX 0.83 (< OR =4)
[2024-07-07] MEDS: oxyCODONE 5MG TAB PO ONE (14:56)
[2024-07-07] MEDS: PILL CUTTER 1 EACH XX PRN (14:56)
[2024-07-07 15:09] LABS: PROCALCITONIN 0.06 ng/ml
[2024-07-07] MEDS: KETOROLAC 30 MG/ML 1ML VIAL IV ONE (16:17)
[2024-07-07] MEDS ORDERED: KETO10TAB PO (17:53)
[2024-07-07] MEDS: methylPREDNISolone 40MG 1ML VIAL IV ONE (18:04)
[2024-07-07] MEDS: KETOROLAC TROMETHAMINE 10 MG TAB PO ONE (18:05)
[2024-07-07 18:06] VITALS: TEMP 98.1; O2SAT 96
[2024-07-07 18:30] VITALS: BP 154/81
== END 2024-07-07 18:31 | disposition home or self-care (01) ==
LOC: M ED 09:53
DX: M94.0 Chondrocostal junction syndrome [Tietze] (principal); I45.10 Unspecified right bundle-branch block; I45.81 Long QT syndrome; K21.9 Gastro-esophageal reflux disease without esophagitis; I10 Essential (primary) hypertension; E78.5 Hyperlipidemia, unspecified; J44.9 Chronic obstructive pulmonary disease, unspecified; F41.9 Anxiety disorder, unspecified; F32.A Depression, unspecified; Z88.5 Allergy status to narcotic agent; Z88.8 Allergy status to other drugs, medicaments and biological substances; Z79.899 Other long term (current) drug therapy
CPT/HCPCS: 71046; 71275; 74177; 80048; 82550; 82553; 83605; 84145; 84484; 85025; 85610; 87040; 93005; 93041; 94760; 96374; 96375; 99285; J1885; J2919; Q9967

== ENCOUNTER → 2024-08-09 | Outpatient (CLI) | payer MEDICARE ==
[~2024-08-09] MED LIST changes: +KETO10TAB PO; +TOPI-257 PO; -TOPI100T9 PO
== END ==
LOC: M RAD 14:17
PROVIDERS: ATTEND Internal Medicine Cardiovascular Disease
DX: I73.9 Peripheral vascular disease, unspecified (principal); E78.5 Hyperlipidemia, unspecified; I66.22 Occlusion and stenosis of left posterior cerebral artery; I65.23 Occlusion and stenosis of bilateral carotid arteries

== ENCOUNTER 2025-01-24 10:43 | Emergency (ER) | payer MEDICARE ==
[~2025-01-24] VITALS: Ht 177.8 cm; Wt 84.1 kg
[~2025-01-24 10:43] MED LIST changes: -COLC0.6T47 PO; +COLC0.6T53 PO
[2025-01-24] MEDS: NS (Normal Saline) 0.9% 1,000 ML IV ONE (11:44)
[2025-01-24] MEDS: ONDANSETRON 4MG/2ML VIAL IV ONE (11:44)
[2025-01-24 12:07] LABS: BASO # 0.0 10^3/uL (0.0-0.2); BASO % 0.5 % (0.0-1.0); EOS # 0.1 10^3/uL (0.0-0.5); EOS % 1.3 % (0.0-3.0); LYMPH # 1.1 10^3/uL (1.5-5.0); LYMPH % 12.8 % (24.0-44.0); MONO # 0.8 10^3/uL (0.0-0.8); MONO % 9.5 % (2.0-8.0); NEUTROPHILS # 6.5 10^3/uL (1.5-8.5); NEUTROPHILS % 75.4 % (36.0-66.0); PLATELET COUNT, AUTOMATED 288 10^3/uL (150-450)
[2025-01-24 12:35] LABS: ALT/SGPT 53.0 U/L (7.0-40); AST/SGOT 18.0 U/L (<34); CALCIUM LEVEL 8.5 MG/DL (8.3-10.6); CARBON DIOXIDE LEVEL 25.0 MMOL/L (20-31); CHLORIDE LEVEL 107.0 MMOL/L (98-107); CREATININE FOR GFR 1.3 MG/DL (0.70-1.30); GLOMERULAR FILTRATION RATE 60.6 (>49); INR 0.98; POTASSIUM SERUM 4.3 MMOL/L (3.5-5.1); SODIUM LEVEL 138.0 MMOL/L (136-145)
[2025-01-24] MEDS: GASTROGRAFIN SOLUTION 30ML PO SCH (12:39)
[2025-01-24 13:56] LABS: KETONE, URINE AUTO RFX NEGATIVE (NEGATIVE); LEUKOCYTE ESTERASE UR AUTO RFX NEGATIVE (NEGATIVE); NITRITE, URINE AUTO RFX NEGATIVE (NEGATIVE); RBC, URINE AUTO RFX 1 /HPF (0-3); SQUAM EPITHELIAL CELL UR AURFX 0 /HPF (0-6); WBC, URINE AUTO RFX 0 /HPF (0-3)
[2025-01-24] MEDS ORDERED: SUCR1SS PO (15:23)
[2025-01-24] MEDS ORDERED: VONO10TA PO (15:23)
[2025-01-24] MEDS ORDERED: AMLO25TA PO (15:23)
[2025-01-24] MEDS ORDERED: HOME MED LIST COMPLETE! XX SCH (15:25)
[2025-01-24] MEDS ORDERED: MITI1CAP PO (15:27)
[2025-01-24] MEDS ORDERED: HYDR-3713 PO (16:31)
[2025-01-24 16:36] VITALS: BP 139/89; TEMP 98.2; O2SAT 94
== END 2025-01-24 16:43 | disposition home or self-care (01) ==
LOC: M ED 10:43
DX: R10.9 Unspecified abdominal pain (principal); N28.1 Cyst of kidney, acquired; J43.9 Emphysema, unspecified; K44.9 Diaphragmatic hernia without obstruction or gangrene; K76.0 Fatty (change of) liver, not elsewhere classified; K57.30 Diverticulosis of large intestine without perforation or abscess without bleeding; Z79.899 Other long term (current) drug therapy; Z79.52 Long term (current) use of systemic steroids; Z88.5 Allergy status to narcotic agent; Z88.8 Allergy status to other drugs, medicaments and biological substances
CPT/HCPCS: 74176; 80048; 80076; 81001; 83690; 85025; 85610; 86850; 86900; 86901; 96361; 96374; 96375; 99284; J2405; J3010; Q9963